=== PATIENT | male | born 1955 | race Caucasian/White ===

== ENCOUNTER 2019-06-02 22:49 | Inpatient (IN) | payer OTHER, SELFPAY ==
[2019-06-02 23:31] LABS: Absolute Lymphocytes (CBC) 1.1 K/uL (0.7-4.9); Basophils % 0.5 % (0-1.3); Hematocrit 38.5 % (39.6-49.0); Lymphocytes % 6.8 % (15.3-44.8); MPV 8.8 fL (7.6-11.3); RBC Red Blood Cell Count 4.22 M/uL (4.33-5.43)
[2019-06-02 23:35] LABS: Protime INR 1.05
[2019-06-02 23:52] LABS: ALT/SGPT 51 U/L (12-78); AST/SGOT 45 U/L (15-37); Albumin 3.4 g/dL (3.4-5.0); Alkaline Phosphatase 84 U/L (45-117); BUN Blood Urea Nitrogen 10 mg/dL (7-18); Bicarbonate 24 mmol/L (21-32); Bilirubin Direct 1.3 mg/dL (0-0.2); Bilirubin Total 2.2 mg/dL (0.2-1.0); Glucose Level 78 mg/dL (74-106); Magnesium 1.6 mg/dL (1.8-2.4); NT PRO-BNP 257 pg/mL (<125); Potassium 4.5 mmol/L (3.5-5.1); Protein, Total 7.6 g/dL (6.4-8.2); Sodium Level 127 mmol/L (136-145); Troponin (Emerg Dept Use Only) < 0.02 ng/mL (0.0-0.045)
[2019-06-03 00:23] LABS: Blood Morphology Comment NOTED (NOT SEEN); Platelet Estimate INCR; Polychromasia 1+; Urine White Blood Cell Casts OK
--- NOTE | 2019-06-03 00:45 | ER ---
Nurse's Notes [facility] Name: Matt Bertrand Age: 63 yrs Sex: Male : 1955 Arrival Date: 06/02/2019 Time: 22:52 Bed 26 Private MD: Diagnosis: Other chest pain;Alcohol dependence with withdrawal;Cellulitis of right lower limb;Cellulitis of left lower limb Presentation: 06/02 22:52 Presenting complaint: EMS states: CHEST PAIN TWO HOURS AGO. WITH HISTORY OF MULTIPLE rv MIs. NO PROCEDURE DONE. CONSISTENT SHARP PAINS, DOES NOT RADIATE. PATIENT IS ALCOHOLIC AND IS ON DETOX FOR TWO DAYS NOW. HE STAYS AT [facility]. Transition of care: [facility]. Onset of symptoms was June 02, 2019 at 21:00. Risk Assessment: Do you want to hurt yourself or someone else? Patient reports no desire to harm self or others. Care prior to arrival: None. Medication(s) given: ASA, 81 mg, x 4. 22:52 Method Of Arrival: EMS: [facility] rv 22:52 Acuity: ALIDA 3 rv 06/03 00:06 Initial Sepsis Screen: Does the patient meet any 2 criteria? No. Patient's initial ls4 sepsis screen is negative. Does the patient have a suspected source of infection? Yes: Skin breakdown/wound. Triage Assessment: 06/02 22:54 General: Appears ill, obese, Behavior is calm. Pain: Complains of pain in chest Pain rv does not radiate. Neuro: Level of Consciousness is awake, alert, obeys commands, Oriented to person, place, time, situation. Cardiovascular: Patient's skin is warm and dry. Respiratory: Airway is patent. Historical: - Allergies: 22:54 No Known Allergies; rv - Home Meds: 22:54 None [Active]; rv - PMHx: 22:54 Unable to obtain; rv - PSHx: 22:54 None; rv - Immunization history:: Adult Immunizations unknown. - Coronavirus screen:: The patient has NOT traveled to [place], [place], or [place] in the past 14 days. Proceed with normal triage process as indicated. The patient has NOT had contact with known/suspected case of Coronavirus? Proceed with normal triage procedures. - Social history:: Smoking status: Patient reports the use of cigarette tobacco products, smokes one pack cigarettes per day. - Ebola Screening: : No symptoms or risks identified at this time. Screenin:53 Abuse screen: Denies threats or abuse. Denies injuries from another. Nutritional ls4 screening: No deficits noted. Tuberculosis screening: No symptoms or risk factors identified. Fall Risk Fall in past 12 months (25 points). Secondary diagnosis (15 points) IV access (20 points). Ambulatory Aid- None/Bed Rest/Nurse Assist (0 pts). Gait- Impaired (20 pts.). Mental Status- Oriented to own ability (0 pts). Total Brown Fall Scale indicates Low Risk Score (25-44 pts). Fall prevention measures have been instituted. Side Rails Up X 2 Placed close to Nursing Station Frequent Obs/Assesments occuring Family Present and informed to notify staff if they need to leave bedside As available Patient and Family Educated on Fall Prevention Program and strategies. 06/03 00:07 VAN Screening: Arm Drift: Patient shows no arm weakness. ls4 Assessment: 00:07 General: Appears distressed, uncomfortable, ill, unkempt, Behavior is flat, fussy, ls4 Smells of URINE. Pain: Denies pain. Neuro: Level of Consciousness is lethargic, Oriented to person, situation, Shampooer are equal bilaterally Moves all extremities. Gait is ataxic, Speech is normal, Facial symmetry appears normal, Pupils are PERRLA, Reports. Cardiovascular: Denies chest pain, Capillary refill < 3 seconds Clubbing of nail beds is present JVD is absent Patient's skin is warm and dry. Rhythm is regular. Respiratory: Airway is patent Respiratory effort is even, unlabored, Respiratory pattern is regular, Breath sounds are diminished. GI: No deficits noted. : Reports incontinence. Derm: FEET MACURATED. APPEARS SOCKS AND SHOES HAVE BEEN ON FOR A LONG PERIOD, SHOES WERE WET, PT HAD 4 PAIRS OF SOCKS ON. PT FACE IS RED AND KAIDEN. Musculoskeletal: Circulation, motion, and sensation intact. Capillary refill < 3 seconds, Range of motion: intact in all extremities. 01:11 Reassessment: No changes from previously documented assessment. Patient and/or family ls4 updated on plan of care and expected duration. Pain level reassessed. Patient is alert, oriented x 3, equal unlabored respirations, skin warm/dry/pink. 01:56 Reassessment: Patient appears in no apparent distress at this time. upon helping clean ch pt, pt buttocks are macerated, yellow, cracking duarte buttocks. Vital Signs: 06/02 22:52 Weight 95.25 kg; rv 23:01 BP 153 / 65; Pulse 110; Resp 21; Temp 98.2; Pulse Ox 97% on R/A; ls4 06/03 00:14 BP 153 / 87; Pulse 110; Resp 20; Temp 100.0; Pulse Ox 94% on R/A; Pain 0/10; ls4 01:10 BP 154 / 91; Pulse 106; Resp 14; Temp 98.9; Pulse Ox 94% on R/A; ls4 NIH Stroke Scale Scores: 00:07 NIHSS Score: 0 ls4 ED Course: 06/02 22:00 Initial lab(s) drawn, by ED staff, sent to lab. EKG done, by ED staff, reviewed by shaista Sanchez MD. 22:00 Patient maintains SpO2 saturation greater than 95% on room air. ls4 22:52 Patient arrived in ED. rv 22:54 Triage completed. rv 22:55 Arm band placed on Patient placed in the treatment room, on a stretcher, Patient rv notified of wait time. 22:55 Patient has correct armband on for positive identification. Placed in gown. Bed in low ls4 position. Call light in reach. Side rails up X2. CLOTHING REMOVED. PT GIVEN COMPLETE BATH. PT INCONTINENT OF URINE. 22:55 child monitor on. Pulse ox on. NIBP on. Warm blanket given. Verbal reassurance given. ls4 Diet: Patient is NPO. 23:01 Ladan Lloyd, RN is Primary Nurse. ls4 23:20 Heath Sanchez MD is Attending Physician. tw4 23:50 XRAY Chest (1 view) In Process Unspecified. EDMS 23:54 No provider procedures requiring assistance completed. Inserted saline lock: 20 gauge ls4 in left forearm, using aseptic technique. 06/03 00:06 EKG completed in triage. Results shown to . ls4 00:43 Carolyn Manriquez MD is Hospitalizing Provider. tw4 Administered Medications: 00:01 Drug: NS 0.9% 1000 ml Route: IV; Rate: 1 bolus; Site: left forearm; ls4 01:43 Drug: Thiamine 100 mg Route: IV; Rate: calculated rate; Site: left forearm; ls4 01:43 Drug: foLIC Acid 1 mg Route: IVPB; Site: left forearm; ls4 01:43 Drug: Cleocin 600 mg Route: IVPB; Infused Over: 30 mins; Site: left forearm; ls4 01:44 Not Given (Other Intervention Used): Ativan 1 mg PO once ls4 01:44 Drug: Ativan 1 mg Route: IVP; Site: left forearm; ls4 Outcome: 00:45 Decision to Hospitalize by Provider. tw4 03:21 Patient left the ED. NIH Stroke Scale - NIH Stroke Score Date: 06/03/2019 Time: 00:07 Total Score = 0 1a. Level of Consciousness (LOC) - 0(Alert) 1b. Level of Consciousness (LOC) (Year \T\ Age) - 0(Both) 1c. LOC Commands (Open \T\ Closes Eyes/Roving Machine Operator) - 0(Both) 2. Best Gaze (Lateral Gaze Paresis) - 0(Normal) 3. Visual Field Loss - 0(No visual loss) 4. Facial Palsy - 0(Normal) 5a. Left Arm: Motor (10-second hold) - 0(No drift) 5b. Right Arm: Motor (10-second hold) - 0(No drift) 6a. Left Leg: Motor (5-second hold - always test supine) - 0(No drift) 6b. Right Leg: Motor (5-second hold - always test supine) - 0(No drift) 7. Limb Ataxia (finger/nose \T\ heel/palacios - test with eyes open) - 0(Absent) 8. Sensory Loss (pinprick arms/legs/face) - 0(Normal) 9. Best Language: Aphasia (description/naming/reading) - 0(No aphasia) 10. Dysarthria (speech clarity - read or repeat words) - 0(Normal) 11. Extinction and Inattention (visual/tactile/auditory/spatial/personal) - 0(No abnormality) Initials: ls4 Signatures: Dispatcher [employer] EDCheri Juarez RN RN Claudia Mario RN RN fc Wadley, Terrence, MD MD tw4 Hector Abbott RN RN Ladan Lloyd RN RN ls4 Corrections: (The following items were deleted from the chart) 06/02 22:56 22:52 Presenting complaint: EMS states: CHEST PAIN TWO HOURS AGO. WITH HISTORY rv OF MULTIPLE MIs. NO PROCEDURE DONE. CONSISTENT SHARP PAINS, DOES NOT RADIATE. rv 06/03 01:43 01:42 Ativan 1 mg PO ls4 ls4
--- NOTE | 2019-06-03 00:45 | EDPHYS ---
Physician Documentation [facility] Name: Matt Bertrand Age: 63 yrs Sex: Male : 1955 Arrival Date: 06/02/2019 Time: 22:52 Bed 26 Private MD: ED Physician Heath Sanchez HPI: 06/03 01:07 This 63 yrs old Male presents to ER via EMS with complaints of chest pain and feeling tw4 shaky. 01:07 The patient or guardian reports chest pain that is located primarily in the anterior tw4 chest wall. Onset: today. The pain does not radiate. Associated signs and symptoms: The patient has no apparent associated signs or symptoms. The chest pain is described as dull. Duration: The patient or guardian reports a single episode, that is now resolved. Modifying factors: The symptoms are alleviated by nothing. Severity of pain: At its worst the pain was moderate in the emergency department the pain is unchanged. Historical: - Allergies: 06/02 22:54 No Known Allergies; rv - Home Meds: 22:54 None [Active]; rv - PMHx: 22:54 Unable to obtain; rv - PSHx: 22:54 None; rv - Immunization history:: Adult Immunizations unknown. - Coronavirus screen:: The patient has NOT traveled to [place], [place], or [place] in the past 14 days. Proceed with normal triage process as indicated. The patient has NOT had contact with known/suspected case of Coronavirus? Proceed with normal triage procedures. - Social history:: Smoking status: Patient reports the use of cigarette tobacco products, smokes one pack cigarettes per day. - Ebola Screening: : No symptoms or risks identified at this time. ROS: 06/03 01:07 Constitutional: Negative for fever, chills, and weight loss, Eyes: Negative for injury, tw4 pain, redness, and discharge, Respiratory: Negative for shortness of breath, cough, wheezing, and pleuritic chest pain, Abdomen/GI: Negative for abdominal pain, nausea, vomiting, diarrhea, and constipation, Back: Negative for injury and pain, Skin: Negative for injury, rash, and discoloration, Neuro: Negative for headache, weakness, numbness, tingling, and seizure. Cardiovascular: Positive for chest pain, Negative for edema, orthopnea, palpitations, paroxysmal nocturnal dyspnea. Skin: Positive for cellulitis. Exam: 01:07 Constitutional: This is a well developed, well nourished patient who is awake, alert, tw4 and in no acute distress. Head/Face: Normocephalic, atraumatic. Chest/axilla: Normal chest wall appearance and motion. Nontender with no deformity. No lesions are appreciated. Cardiovascular: Regular rate and rhythm with a normal S1 and S2. No gallops, murmurs, or rubs. Normal PMI, no JVD. No pulse deficits. Respiratory: Lungs have equal breath sounds bilaterally, clear to auscultation and percussion. No rales, rhonchi or wheezes noted. No increased work of breathing, no retractions or nasal flaring. Abdomen/GI: Soft, non-tender, with normal bowel sounds. No distension or tympany. No guarding or rebound. No evidence of tenderness throughout. 01:07 Musculoskeletal/extremity: Extremities: noted in the right foot: erythema, swelling, decreased ROM, deformity, laceration, puncture, rash. Vital Signs: 06/02 22:52 Weight 95.25 kg; rv 23:01 BP 153 / 65; Pulse 110; Resp 21; Temp 98.2; Pulse Ox 97% on R/A; ls4 06/03 00:14 BP 153 / 87; Pulse 110; Resp 20; Temp 100.0; Pulse Ox 94% on R/A; Pain 0/10; ls4 01:10 BP 154 / 91; Pulse 106; Resp 14; Temp 98.9; Pulse Ox 94% on R/A; ls4 NIH Stroke Scale Scores: 00:07 NIHSS Score: 0 ls4 MDM: 06/02 23:27 Patient medically screened. tw4 06/03 01:07 Differential diagnosis: acute pericarditis, anxiety, coronary artery disease chest wall tw4 pain, pulmonary embolus. HEART Score: History: Slightly Suspicious (0), ECG: Non specific repolarization disturbance / LBTB / PM (1), Age: > or = 65 years (2), Risk Factors: 1 or 2 risk factors (1), [Hypertension] [Active Smoker] Troponin: < or = 1 x Normal Limit (0), Total Score = 4. Data reviewed: vital signs, nurses notes. Data interpreted: Pulse oximetry: Interpretation: normal. Test interpretation: by ED physician or midlevel provider: ECG, plain radiologic studies. Counseling: I had a detailed discussion with the patient and/or guardian regarding: the historical points, exam findings, and any diagnostic results supporting the discharge/admit diagnosis. Physician consultation: Carolyn Manriquez MD regarding admission, to the telemetry unit. patient's condition, and will see patient in inpatient room. Special discussion:. 06/02 23:20 Order name: Basic Metabolic Panel [facility] 06/03 00:47 Interpretation: Normal except: NA 127; CL 91. [facility] 06/02 23:20 Order name: CBC with Diff [facility] 06/03 00:47 Interpretation: Normal except: WBC 15.7; RBC 4.22; HGB 12.7; HCT 38.5; PLT 435; LYM% tw4 6.8; WILLA% 80.6; NEUT A 12.6. 06/02 23:20 Order name: LFT's [facility] 06/03 00:47 Interpretation: Normal except: AST 45; BILIT 2.2; BILID 1.3; GLOB 4.2; A/G 0.8. [facility] 06/02 23:20 Order name: Magnesium [facility] 06/03 00:47 Interpretation: Abnormal: MG 1.6. [facility] 06/02 23:20 Order name: NT PRO-BNP [facility] 06/03 00:47 Interpretation: Abnormal: NT PRO-BNP 257. [facility] 06/02 23:20 Order name: PT-INR [facility] 06/03 00:48 Interpretation: Within normal limits: PT 12.4. [facility] 06/02 23:20 Order name: Troponin (emerg Dept Use Only) [facility] 06/03 00:48 Interpretation: Within normal limits: TROPED < 0.02. [facility] 06/02 23:20 Order name: XRAY Chest (1 view) [facility] 06/02 23:44 Order name: CBC Smear Scan [facility] 06/03 01:50 Order name: Lipid Profile [facility] 06/03 01:50 Order name: Lipid Profile [facility] 06/03 01:50 Order name: Troponin I [facility] 06/03 01:50 Order name: Troponin I [facility] 06/03 01:50 Order name: Troponin I [facility] 06/02 23:20 Order name: EKG; Complete Time: 23:21 [facility] 06/02 23:20 Order name: Cardiac monitoring; Complete Time: 23:52 tw4 06/02 23:20 Order name: EKG - Nurse/Tech; Complete Time: 23:52 tw4 06/02 23:20 Order name: IV Saline Lock; Complete Time: 23:52 tw4 06/02 23:20 Order name: Labs collected and sent; Complete Time: 23:51 tw4 06/02 23:20 Order name: O2 Per Protocol; Complete Time: 23:51 tw4 06/03 01:50 Order name: Heart Healthy [facility] 06/03 01:50 Order name: Echo with Doppler [facility] 06/03 01:50 Order name: EKG Electrocardiogram [facility] 06/03 01:50 Order name: EKG Electrocardiogram [facility] 06/02 23:20 Order name: O2 Sat Monitoring; Complete Time: :51 tw4 EC:52 Rate is 109 beats/min. Rhythm is regular. QRS [place] is Normal. ME interval is normal. tw4 QRS interval is normal. QT interval is normal. No Q waves. T waves are Normal. No ST changes noted. Clinical impression: NSR w/ Non-specific ST/T Changes, Abnormal EKG without significant change, and Sinus tachycardia. Interpreted by me. Reviewed by me. Administered Medications: 00:01 Drug: NS 0.9% 1000 ml Route: IV; Rate: 1 bolus; Site: left forearm; ls4 01:43 Drug: Thiamine 100 mg Route: IV; Rate: calculated rate; Site: left forearm; ls4 01:43 Drug: foLIC Acid 1 mg Route: IVPB; Site: left forearm; ls4 01:43 Drug: Cleocin 600 mg Route: IVPB; Infused Over: 30 mins; Site: left forearm; ls4 01:44 Not Given (Other Intervention Used): Ativan 1 mg PO once ls4 01:44 Drug: Ativan 1 mg Route: IVP; Site: left forearm; ls4 Disposition: 06/03/19 00:45 Hospitalization ordered by Carolyn Manriquez for Inpatient Admission. Preliminary diagnosis are Other chest pain, Alcohol dependence with withdrawal, Cellulitis of right lower limb, Cellulitis of left lower limb. - Bed requested for Telemetry/MedSurg (Inpatient). - Status is Inpatient Admission. fc - Condition is Stable. - Problem is an ongoing problem. - Symptoms are unchanged. UTI on Admission? No NIH Stroke Scale - NIH Stroke Score Date: 06/03/2019 Time: 00:07 Total Score = 0 1a. Level of Consciousness (LOC) - 0(Alert) 1b. Level of Consciousness (LOC) (Year \T\ Age) - 0(Both) 1c. LOC Commands (Open \T\ Closes Eyes/Resident Care Aide) - 0(Both) 2. Best Gaze (Lateral Gaze Paresis) - 0(Normal) 3. Visual Field Loss - 0(No visual loss) 4. Facial Palsy - 0(Normal) 5a. Left Arm: Motor (10-second hold) - 0(No drift) 5b. Right Arm: Motor (10-second hold) - 0(No drift) 6a. Left Leg: Motor (5-second hold - always test supine) - 0(No drift) 6b. Right Leg: Motor (5-second hold - always test supine) - 0(No drift) 7. Limb Ataxia (finger/nose \T\ heel/palacios - test with eyes open) - 0(Absent) 8. Sensory Loss (pinprick arms/legs/face) - 0(Normal) 9. Best Language: Aphasia (description/naming/reading) - 0(No aphasia) 10. Dysarthria (speech clarity - read or repeat words) - 0(Normal) 11. Extinction and Inattention (visual/tactile/auditory/spatial/personal) - 0(No abnormality) Initials: ls4 Signatures: Dispatcher [employer] EDMS Claudia Mario RN RN fc Garcia, Cindy, RN RN Heath Sanchez MD MD tw4 Hector Abbott RN RN rv Stewart, Lisa, RN RN ls4 Corrections: (The following items were deleted from the chart) 00:45 00:45 Hospitalization Ordered by Carolyn Manriquez MD for Inpatient Admission. tw4 Preliminary diagnosis is Other chest pain; Alcohol dependence with withdrawal. Bed requested for Telemetry/MedSurg (Inpatient). Status is Inpatient Admission. Condition is Stable. Problem is an ongoing problem. Symptoms are unchanged. UTI on Admission? No. tw4 01:57 00:45 06/03/2019 00:45 Hospitalization Ordered by Carolyn Manriquez MD for cg Inpatient Admission. Preliminary diagnosis is Other chest pain; Alcohol dependence with withdrawal; Cellulitis of right lower limb; Cellulitis of left lower limb. Bed requested for Telemetry/MedSurg (Inpatient). Status is Inpatient Admission. Condition is Stable. Problem is an ongoing problem. Symptoms are unchanged. UTI on Admission? No. tw4 03:21 01:57 06/03/2019 00:45 Hospitalization Ordered by Carolyn Manriquez MD for Inpatient Admission. Preliminary diagnosis is Other chest pain; Alcohol dependence with withdrawal; Cellulitis of right lower limb; Cellulitis of left lower limb. Bed requested for Telemetry/MedSurg (Inpatient). Status is Inpatient Admission. Condition is Stable. Problem is an ongoing problem. Symptoms are unchanged. UTI on Admission? No. cg
[2019-06-03] MEDS ORDERED: THIAMINE 200 MG/2 ML INJ ONE (01:17)
[2019-06-03] MEDS ORDERED: FOLIC ACID 5 MG/ML VIAL ONE ×2 (01:20→01:24)
[2019-06-03] MEDS ORDERED: LORazepam 2 MG/ML VIAL ONE (01:24)
[2019-06-03] MEDS ORDERED: CLINDAMYCIN 600MG/D5W 600 MG/50 ML BAG IV ONE (01:25)
[2019-06-03] MEDS ORDERED: ACETAMINOPHEN 500 MG TAB PO PRN (01:45)
[2019-06-03] MEDS: MORPHINE 4 MG/ML SYR IV PRN ×3 (04:11→21:19)
[2019-06-03 04:37] VITALS: BMI 33.1
[2019-06-03] MEDS: chlordiazePOXIDE HCl 5 MG CAP PO SCH ×4 (05:43→23:41)
[2019-06-03] MEDS ORDERED: NA CHLORIDE 0.9% 100 ML ONE (05:46)
[2019-06-03] MEDS ORDERED: PIPERACIL/TAZO 3.375 GM VIAL IV ONE (05:48)
[2019-06-03] MEDS ORDERED: METOPROLOL TAR 50 MG TAB PO SCH (06:00)
[2019-06-03] MEDS ORDERED: PIPER/TAZO/NS 3.375gm 3.375 GM/100 ML BAG IVPB SCH ×2 (06:00→11:00)
[2019-06-03 06:07] LABS: HDL Cholesterol 54 mg/dL (40-60); LDL Cholesterol, Calculated 63 (<130); Troponin I < 0.02 ng/mL (0.0-0.045)
[2019-06-03] MEDS ORDERED: HYDROCORTISONE SUC 100 MG INJ IV ONE (06:35)
[2019-06-03] MEDS ORDERED: NA CHLORIDE 0.9% 500 ML IV ONE (06:35)
--- NOTE | 2019-06-03 06:35 | EKG ---
Test Date: 2019-06-02 Test Time: 22:54:23 Print Shop Assistant: LEYDI MEASUREMENT RESULTS: Intervals: Rate: 109 WI: 164 QRSD: 80 QT: 336 QTc: 452 [place]: P: 66 WI: 164 QRS: -3 T: 56 INTERPRETIVE STATEMENTS: Sinus tachycardia Possible Left atrial enlargement Anteroseptal infarct, age undetermined Abnormal ECG No previous ECG available for comparison Electronically Signed On 06-03-19 06:34:57 PHYSICS TUTOR by Manuel Blankenship
[2019-06-03] MEDS ORDERED: Magnesium Sulfate 2gm IVPB 2 G/50 ML BAG IV ONE (06:38)
[2019-06-03] MEDS ORDERED: VANCOMYCIN 1.75 GM in NA CHLORIDE 0.9% 500 ML IVPB SCH (07:00)
--- NOTE | 2019-06-03 07:55 | RAD REPORT ---
EXAM DESCRIPTION: Olivier Single View06/02/2019 11:49 pm CLINICAL HISTORY: Chest pain COMPARISON: none FINDINGS: The lungs appear clear of acute infiltrate. The heart is borderline enlarged IMPRESSION: No acute abnormalities displayed
[2019-06-03] MEDS: FOLIC ACID 1 MG, MULTIVITAMINS INJ 10 ML, THIAMINE HCL 100 MG in NA CHLORIDE 0.9% 1,000 ML IV SCH (08:35)
[2019-06-03] MEDS: VANCOMYCIN 1.75 GM in NA CHLORIDE 0.9% 500 ML IVPB SCH ×2 (08:36→20:02)
[2019-06-03] MEDS: ASPIRIN EC 81 MG TAB PO SCH (08:39)
[2019-06-03] MEDS: METOPROLOL TAR 50 MG TAB PO SCH ×2 (08:39→20:56)
[2019-06-03] MEDS: ENOXAPARIN 40 MG/0.4 ML SQ SCH (08:39)
[2019-06-03] MEDS ORDERED: ASPIRIN 325 MG TAB PO SCH (09:00)
[2019-06-03] MEDS ORDERED: INFLUENZA VACCINE (for 3y+) 0.5 ML DOSE IMVAC ONE (09:00)
[2019-06-03] MEDS: CEFEPIME/SWI 1gm 10 ML IV SCH ×2 (12:08→17:10)
--- NOTE | 2019-06-03 12:40 | P.HP ---
Certification for Inpatient Patient admitted to: Inpatient With expected LOS: >2 Midnights Patient will require the following post-hospital care: None Practitioner: I am a practitioner with admitting privileges, knowledge of patient current condition, hospital course, and medical plan of care. Services: Services provided to patient in accordance with Admission requirements found in Title 42 Section 412.3 of the Code of Federal Regulations Patient History Date of Service: 06/03/19 Reason for admission: Bilateral lower extremity cellulitis & alcoholism History of Present Illness: Patient is a 63-year-old gentleman who has a history of alcohol use /abuse who comes into the hospital with bilateral lower extremity cellulitis. Patient has been homeless and has been living at the [facility]. He had been getting around until his feet were hurting. He apparently has not taken his socks off in over a month. He was having pain and tenderness so he came into the emergency room for further evaluation. On further exam he has significant erythema on both legs. He has a history of alcohol abuse though it is concerning for possible skin infection versus gouty arthropathy. Patient will be started on IV antibiotic therapy. Will also check a serum uric acid level and he may need a 24 hour urine at uric acid level. If the antibiotics is not improving the erythema that he may benefit from colchicine and steroids. Allergies No Known Allergies Allergy (Unverified 06/03/19 01:45) Home Medications: NK [No Home Meds] 06/03/19 - Past Medical/Surgical History Has patient received pneumonia vaccine in the past: Yes Diabetic: No -: HTN -: COPD -: Right ankle surgery - Family History Father Family History: Reviewed- Non-Contributory - Social History Smoking Status: Unknown if ever smoked Alcohol use: Yes CD- Drugs: No Caffeine use: Yes Place of Residence: Homeless Review of Systems 10-point ROS is otherwise unremarkable Physical Examination - Vital Signs Temperature: 99.7 F Blood Pressure: 149/76 Pulse: 97 Respirations: 20 Pulse Ox (%): 94 - Physical Exam General: Alert, In no apparent distress, Oriented x3 HEENT: Atraumatic, PERRLA, Mucous membr. moist/pink, EOMI, Sclerae nonicteric Neck: Supple, 2+ carotid pulse no bruit, No LAD, Without JVD or thyroid abnormality Respiratory: Clear to auscultation bilaterally, Normal air movement Cardiovascular: Regular rate/rhythm, Normal S1 S2, No murmurs Gastrointestinal: Normal bowel sounds, Soft and benign, Non-distended, No tenderness Musculoskeletal: No clubbing, Swelling, Erythema, Tenderness, Warmth Integumentary: Tenderness/swelling, Erythema, Warmth Neurological: Normal speech, Normal tone, Sensation intact, Cranial nerves 3-12 intact, Normal affect, Abnormal gait, Abnormal strength Lymphatics: No axilla or inguinal lymphadenopathy - Studies Laboratory Data (last 24 hrs) 06/02/19 23:20: PT 12.4, INR 1.05 06/02/19 23:20: WBC 15.7 H, Hgb 12.7 L, Hct 38.5 L, Plt Count 435 H 06/02/19 23:20: Sodium 127 L, Potassium 4.5, BUN 10, Creatinine 0.67, Glucose 78 , Magnesium 1.6 L, Total Bilirubin 2.2 H, AST 45 H, ALT 51, Alkaline Phosphatase 84 Assessment & Plan - Problems (Diagnosis) (1) Cellulitis of both lower extremities Current Visit: Yes Status: Acute (2) History of alcohol abuse Current Visit: Yes Status: Acute (3) Gouty arthropathy Current Visit: Yes Status: Acute - Plan 1. Continue with IV antibiotic 2. Continue with local wound care 3. patient may need Podiatry or infectious Disease consultation 4. Gentle IV hydration and we will add banana bag daily 5. Monitor CBC 6. delirium tremens prevention 7. Pain control 8. GI and DVT prophylaxis Discharge Plan: Home Plan to discharge in: Greater than 2 days - Advance Directives Does patient have a Living Will: No Does patient have a Durable POA for Healthcare: No - Code Status/Comfort Care Code Status Assessed: Yes Code Status: Full Code Critical Care: No Time Spent Managing PTS Care (In Minutes): 45
[2019-06-03 13:58] LABS: BUN Blood Urea Nitrogen 10 mg/dL (7-18); Bicarbonate 31 mmol/L (21-32); Glucose Level 90 mg/dL (74-106); Potassium 4.2 mmol/L (3.5-5.1); Sodium Level 137 mmol/L (136-145)
--- NOTE | 2019-06-03 15:30 | ECHO ---
HEIGHT: 5 ft 8 in WEIGHT: 218 lb 3.2 oz DATE OF STUDY: 06/03/[address]: Carolyn Manriquez MD 2-DIMENSIONAL: YES M.MODE: YES DOPPLER: YES COLOR FLOW: YES TDS: YES PORTABLE: NO DEFINITY: NO BUBBLE STUDY: NO DIAGNOSIS: CHEST PAIN/ ACUTE CORONARY SYNDROME CARDIAC HISTORY: CATHERIZATION: NO SURGERY: NO PROSTHETIC VALVE: NO PACEMAKER: NO MEASUREMENTS (cm) DIASTOLIC (NORMALS) SYSTOLIC (NORMALS) IVSd 1.2 (0.6-1.2) LA Diam 3.6 (1.9-4.0) LVEF 52% LVIDd 4.7 (3.5-5.7) LVIDs 3.5 (2.0-3.5) %FS 26% LVPWd 1.3 (0.6-1.2) Ao Diam 3.5 (2.0-3.7) 2 DIMENSIONAL ASSESSMENT: RIGHT ATRIUM: NORMAL LEFT ATRIUM: NORMAL RIGHT VENTRICLE: NORMAL LEFT VENTRICLE: NORMAL TRICUSPID VALVE: NORMAL MITRAL VALVE: NORMAL PULMONIC VALVE: NORMAL AORTIC VALVE: NORMAL PERICARDIAL EFFUSION: NONE AORTIC ROOT: NORMAL LEFT VENTRICULAR WALL MOTION: NORMAL. DOPPLER/COLOR FLOW: TRACE OF TRICUSPID REGURGITATION. NORMAL RIGHT VENTRICULAR SYSTOLIC PRESSURE. COMMENTS: NORMAL 2D ECHO WITH DOPPLER. TRACE OF TRICUSPID REGURGITATION. TECHNOLOGIST: DOUGLAS GONZALEZ
[2019-06-04] MEDS: CEFEPIME/SWI 1gm 10 ML IV SCH ×3 (00:26→16:18)
[2019-06-04] MEDS: MORPHINE 4 MG/ML SYR IV PRN ×2 (00:57→12:39)
[2019-06-04] MEDS: ALPRAZOLAM 0.25 MG TABLET PO PRN ×3 (01:49→10:04)
[2019-06-04] MEDS: chlordiazePOXIDE HCl 5 MG CAP PO SCH ×3 (05:49→16:17)
[2019-06-04 06:02] LABS: Absolute Lymphocytes (CBC) 1.3 K/uL (0.7-4.9); Basophils % 1.3 % (0-1.3); Hematocrit 34.7 % (39.6-49.0); Lymphocytes % 15.1 % (15.3-44.8); MPV 8.5 fL (7.6-11.3)
[2019-06-04 06:19] LABS: BUN Blood Urea Nitrogen 12 mg/dL (7-18); Bicarbonate 29 mmol/L (21-32); Glucose Level 87 mg/dL (74-106); Lipase 222 U/L (73-393); Phosphorus 3.5 mg/dL (2.5-4.9); Potassium 4.1 mmol/L (3.5-5.1); Sodium Level 137 mmol/L (136-145)
[2019-06-04] MEDS: ENOXAPARIN 40 MG/0.4 ML SQ SCH (10:03)
[2019-06-04] MEDS: ASPIRIN EC 81 MG TAB PO SCH (10:03)
[2019-06-04] MEDS: METOPROLOL TAR 50 MG TAB PO SCH ×2 (10:04→21:34)
[2019-06-04] MEDS: VANCOMYCIN 1.75 GM in NA CHLORIDE 0.9% 500 ML IVPB SCH (10:05)
[2019-06-04] MEDS: FOLIC ACID 1 MG, MULTIVITAMINS INJ 10 ML, THIAMINE HCL 100 MG in NA CHLORIDE 0.9% 1,000 ML IV SCH (10:05)
--- NOTE | 2019-06-04 11:16 | EKG ---
Test Date: 2019-06-04 Test Time: 09:44:51 Control Valve Technician: KATE MEASUREMENT RESULTS: Intervals: Rate: 78 KS: 148 QRSD: 102 QT: 414 QTc: 471 [place]: P: 68 KS: 148 QRS: -11 T: 38 INTERPRETIVE STATEMENTS: Sinus rhythm with occasional premature ventricular complexes RSR' or QR pattern in V1 suggests right ventricular conduction delay Cannot rule out Anterior infarct, age undetermined Abnormal ECG Compared to ECG 06/02/2019 22:54:23 Ventricular premature complex(es) now present RSR' in V1 or V2 now present Sinus tachycardia no longer present Myocardial infarct finding still present Electronically Signed On 06-04-19 11:15:53 DOCTOR OF DENTAL SURGERY by Jorge Hughes
[2019-06-04] MEDS ORDERED: LORazepam 2 MG/ML VIAL IV PRN (12:01)
[2019-06-04] MEDS ORDERED: FLUMAZENIL 0.1 MG/ML (5 mL VIAL) IV PRN (12:01)
--- NOTE | 2019-06-04 12:06 | P.PN ---
Subjective Date of Service: 06/04/19 Chief Complaint: Bilateral lower extremity cellulitis & alcoholism In withdrawal. Review of Systems is unable to be obtained Physical Examination - Vital Signs Temperature: 99 F Blood Pressure: 151/72 Pulse: 81 Respirations: 20 Pulse Ox (%): 91 - Physical Exam General: Disheveled, Confused HEENT: Atraumatic, Normocephalic Neck: Supple, JVD not distended Respiratory: Clear to auscultation bilaterally, Expiratory wheezes Cardiovascular: Regular rate/rhythm, Normal S1 S2 Gastrointestinal: Normal bowel sounds, No ascites Musculoskeletal: Erythema, Tenderness, Warmth Integumentary: Erythema, Warmth Neurological: Abnormal gait, Abnormal speech - Studies Laboratory Tests 06/04/19 06/04/19 05:39 05:39 WBC 8.4 D Hgb 11.7 L Hct 34.7 L Plt Count 357 Sodium 137 Potassium 4.1 Creatinine 0.63 Glucose 87 Lipase 222 Medications List Reviewed: Yes Assessment And Plan - Plan #Cellulitis of both lower extremities-Continue with IV antibiotic. Discontinue vancomycin. - Leukocytosis improved. -Check wound culture. Will consider podiatry consultation. - Continue with local wound care #History of alcohol abuse- currently in alcohol withdrawal. -patient intends to discontinue alcohol use. -continue multivitamin, thiamine and folic acid. - calculate CIWA an use medication as protocol. -telemonitoring. -seizure precaution. # Gouty arthropathy-stable, will continue pain control. #Hypertension- probably related to alcohol. -continue metoprolol GI and DVT prophylaxis
[2019-06-04] MEDS: LORazepam 2 MG/ML VIAL IV SCH ×3 (12:59→21:34)
[2019-06-05] MEDS: CEFEPIME/SWI 1gm 10 ML IV SCH ×2 (00:24→08:13)
[2019-06-05] MEDS: LORazepam 2 MG/ML VIAL IV SCH ×3 (00:24→08:13)
[2019-06-05] MEDS: chlordiazePOXIDE HCl 5 MG CAP PO SCH ×2 (00:24→05:08)
[2019-06-05 06:00] LABS: ALT/SGPT 37 U/L (12-78); AST/SGOT 31 U/L (15-37); Albumin 2.9 g/dL (3.4-5.0); Alkaline Phosphatase 86 U/L (45-117); BUN Blood Urea Nitrogen 12 mg/dL (7-18); Bicarbonate 33 mmol/L (21-32); Bilirubin Total 0.8 mg/dL (0.2-1.0); Glucose Level 80 mg/dL (74-106); Magnesium 1.8 mg/dL (1.8-2.4); Potassium 4.4 mmol/L (3.5-5.1); Sodium Level 140 mmol/L (136-145)
[2019-06-05 06:19] LABS: Absolute Lymphocytes (CBC) 1.5 K/uL (0.7-4.9); Basophils % 1.3 % (0-1.3); Hematocrit 39.2 % (39.6-49.0); Lymphocytes % 17.3 % (15.3-44.8); MPV 9.5 fL (7.6-11.3); RBC Red Blood Cell Count 4.26 M/uL (4.33-5.43)
[2019-06-05] MEDS: ENOXAPARIN 40 MG/0.4 ML SQ SCH (08:13)
[2019-06-05] MEDS: ASPIRIN EC 81 MG TAB PO SCH (08:13)
[2019-06-05] MEDS: METOPROLOL TAR 50 MG TAB PO SCH (08:13)
[2019-06-05 08:18] LABS: Blood Morphology Comment NOT SEEN (NOT SEEN); Platelet Estimate ADEQ
[2019-06-05] MEDS ORDERED: FOLIC ACID 1 MG TABLET PO SCH (09:00)
[2019-06-05] MEDS ORDERED: THIAMINE HCL 100 MG TABLET PO SCH (09:00)
[2019-06-05] MEDS ORDERED: MULTIVITAMIN TAB PO SCH (09:00)
[2019-06-05] MEDS ORDERED: chlordiazePOXIDE HCl 5 MG CAP PO SCH (09:00)
[2019-06-05 09:10] VITALS: O2SAT 96
--- NOTE | 2019-06-05 10:11 | P.DS ---
Admission Date: 06/03/19 Discharge Date: 06/05/19 Disposition: ROUTINE DISCHARGE Discharge Condition: GOOD Reason for Admission: Bilateral lower extremity cellulitis & alcoholism Hospital Course: Mr. Bertrand is 63-year-old male with a history of alcohol abuse who presented to the ER with bilateral lower extremity cellulitis. Patient had not taken his socks off for over a month. He had been living in [facility]. Initiate evaluation was significant for cellulitis as he also had leukocytosis. He was initiated on IV antibiotics and erythema have significantly improved. Patient has a history of alcohol abuse and underwent alcohol withdrawal while inpatient. His current CIWA score is less than 6. He will be discharged on Librium tapering. Alcohol cessation has been strongly advised. He was also noted to have hypertension, now started on anti hypertensives. Patient has a limited mobility due to unsteady gait. 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 He has been started on folic acid, vitamin B12 and thiamine. He remained hemodynamically stable for discharge back to the [facility]. Vital Signs/Physical Exam: Temp Pulse Resp BP Pulse Ox 98.2 F 74 20 137/74 93 06/05/19 08:00 06/05/19 08:13 06/05/19 08:00 06/05/19 08:13 06/05/19 08:00 General: Alert, In no apparent distress, Disheveled HEENT: Atraumatic, PERRLA, EOMI Neck: Supple, JVD not distended Respiratory: Clear to auscultation bilaterally, Normal air movement Cardiovascular: Regular rate/rhythm, Normal S1 S2 Gastrointestinal: Normal bowel sounds, No tenderness Musculoskeletal: No tenderness Integumentary: Rash(es), Erythema (improved) Neurological: Normal speech, Normal tone, Normal affect Lymphatics: No axilla or inguinal lymphadenopathy Laboratory Data at Discharge: WBC 8.6 K/uL (4.3-10.9) 06/05/19 05:22 Hgb 12.9 g/dL (13.6-17.9) L 06/05/19 05:22 Hct 39.2 % (39.6-49.0) L 06/05/19 05:22 Plt Count 343 K/uL (152-406) 06/05/19 05:22 PT 12.4 SECONDS (9.5-12.5) 06/02/19 23:20 INR 1.05 06/02/19 23:20 Sodium 140 mmol/L (136-145) 06/05/19 05:22 Potassium 4.4 mmol/L (3.5-5.1) 06/05/19 05:22 BUN 12 mg/dL (7-18) 06/05/19 05:22 Creatinine 0.69 mg/dL (0.55-1.3) 06/05/19 05:22 Glucose 80 mg/dL (74-106) 06/05/19 05:22 Uric Acid 5.5 mg/dL (3.5-7.2) 06/03/19 05:21 Phosphorus 3.5 mg/dL (2.5-4.9) 06/04/19 05:39 Magnesium 1.8 mg/dL (1.8-2.4) 06/05/19 05:22 Total Bilirubin 0.8 mg/dL (0.2-1.0) 06/05/19 05:22 AST 31 U/L (15-37) 06/05/19 05:22 ALT 37 U/L (12-78) 06/05/19 05:22 Alkaline Phosphatase 86 U/L (45-117) 06/05/19 05:22 Troponin I < 0.02 ng/mL (0.0-0.045) 06/03/19 11:26 Triglycerides 95 mg/dL (<150) 06/03/19 05:24 Cholesterol 136 mg/dL (<200) 06/03/19 05:24 HDL Cholesterol 54 mg/dL (40-60) 06/03/19 05:24 Cholesterol/HDL Ratio 2.52 06/03/19 05:24 Lipase 222 U/L (73-393) 06/04/19 05:39 Home Medications: Cephalexin [Keflex] 500 mg PO Q12HR #14 cap 06/05/19 Chlordiazepoxide HCl [Librium] 10 mg PO BID #14 capsule 06/05/19 Folic Acid 1 mg PO BID #60 tablet 06/05/19 Metoprolol Tartrate [Lopressor*] 50 mg PO BID #60 tab 06/05/19 Thiamine HCl 100 mg PO DAILY #30 tablet 06/05/19 New Medications: Cephalexin [Keflex] 500 mg PO Q12HR #14 cap Chlordiazepoxide HCl [Librium] 10 mg PO BID #14 capsule Folic Acid 1 mg PO BID #60 tablet Metoprolol Tartrate [Lopressor*] 50 mg PO BID #60 tab Thiamine HCl 100 mg PO DAILY #30 tablet Patient Discharge Instructions: Alcohol cessation strongly advised Diet: AHA Activity: Fall precautions Followup: NONE,NONE [Primary Care Provider] - 1 Week
[2019-06-05 12:14] VITALS: BP 145/82; TEMP 97.9
[2019-06-06] MEDS ORDERED: LORazepam 2 MG/ML VIAL IV SCH (12:02)
== END 2019-06-05 14:10 | disposition home or self-care (01) | DRG 603 ==
LOC: ER 22:49 → 2ND 06-03 01:59
PROVIDERS: ADMIT Hospitalist; ATTEND Hospitalist
DX: L03.116 Cellulitis of left lower limb (principal); F10.239 Alcohol dependence with withdrawal, unspecified; L03.115 Cellulitis of right lower limb; M10.9 Gout, unspecified; D72.829 Elevated white blood cell count, unspecified; I10 Essential (primary) hypertension; J44.9 Chronic obstructive pulmonary disease, unspecified; Z59.0 Homelessness
CPT/HCPCS: 36415; 71045; 80048; 80053; 80061; 80076; 80202; 83605; 83690; 83735; 83880; 84100; 84145; 84484; 84550; 85025; 85610; 93005; 93306; 96374; 96375; 99285; J0692; J1650; J1720; J2543; J3411; J3475; J7030; J7040

== ENCOUNTER 2019-06-06 14:57 | Emergency (ER) | payer OTHER ==
[2019-06-06] MEDS ORDERED: FOLIC ACID 1 MG, MULTIVITAMINS INJ 10 ML, THIAMINE HCL 100 MG in NA CHLORIDE 0.9% 1,000 ML IV ONE (16:00)
[2019-06-06 16:01] LABS: Absolute Lymphocytes (CBC) 1.6 K/uL (0.7-4.9); Basophils % 0.1 % (0-1.3); Hematocrit 45.5 % (39.6-49.0); MPV 8.7 fL (7.6-11.3); RBC Red Blood Cell Count 4.97 M/uL (4.33-5.43)
[2019-06-06 16:21] LABS: Urine Blood NEGATIVE (NEG); Urine Glucose NEGATIVE (NEG); Urine Protein NEGATIVE (NEG); Urine pH 6.5 (5.0-7.0)
[2019-06-06 16:24] LABS: Blood Morphology Comment NOT SEEN (NOT SEEN); Platelet Estimate INCR; Urine White Blood Cell Casts OK
[2019-06-06 16:25] LABS: Barbiturates NEGATIVE (NEGATIVE); Benzodiazepines POSITIVE (NEGATIVE); Cocaine NEGATIVE (NEGATIVE); METHAMPHETAM NEGATIVE (NEGATIVE); Methadone NEGATIVE (NEGATIVE); Opiates NEGATIVE (NEGATIVE); Phencyclidine NEGATIVE (NEGATIVE); THC Cannibis NEGATIVE (NEGATIVE)
[2019-06-06 16:58] LABS: Protime INR 1.02
[2019-06-06 17:08] LABS: ALT/SGPT 32 U/L (12-78); AST/SGOT 20 U/L (15-37); Alkaline Phosphatase 75 U/L (45-117); Bicarbonate 28 mmol/L (21-32); Bilirubin Direct 0.4 mg/dL (0-0.2); Bilirubin Total 0.7 mg/dL (0.2-1.0); Glucose Level 83 mg/dL (74-106); Protein, Total 7.9 g/dL (6.4-8.2); Sodium Level 136 mmol/L (136-145)
[2019-06-06 17:10] LABS: Albumin 3.2 g/dL (3.4-5.0); BUN Blood Urea Nitrogen 7 mg/dL (7-18); Potassium 4.1 mmol/L (3.5-5.1)
[2019-06-06] MEDS ORDERED: ACETAMINOPHEN 500 MG TAB ONE (21:30)
--- NOTE | 2019-06-06 23:31 | ER ---
Nurse's Notes [facility] Name: Matt Bertrand Age: 63 yrs Sex: Male : 1955 Arrival Date: 06/06/2019 Time: 15:00 Bed 6 Private MD: Diagnosis: Homelessness;Alcohol abuse Presentation: 06/06 15:21 Presenting complaint: Abdominal pain and nausea x 2 days. Pt stated "My belly hurts and hb I have nowhere to stay and look at me, I am suicidal!" Pt reports drinking approx 1 case of beer per day, last drink was yesterday. Hx of suicide attempt by overdose, current plan is "to drink myself to and take whatever pills I can find.". Transition of care: patient was not received from another setting of care. Onset of symptoms was June 06, 2019. Risk Assessment: Do you want to hurt yourself or someone else? Patient reports no desire to harm self or others. Initial Sepsis Screen: Does the patient meet any 2 criteria? No. Patient's initial sepsis screen is negative. Does the patient have a suspected source of infection? No. Patient's initial sepsis screen is negative. Care prior to arrival: None. 15:21 Method Of Arrival: Ambulatory hb 15:21 Acuity: ALIDA 2 hb Historical: - Allergies: 15:24 No Known Allergies; hb - Home Meds: 15:24 None [Active]; hb - PMHx: 15:24 hydrocephalus; hb - PSHx: 15:24 None; hb - Immunization history:: Adult Immunizations unknown. - Coronavirus screen:: The patient has NOT traveled to [place], [place], or [place] in the past 14 days. The patient has NOT had contact with known/suspected case of Coronavirus? Proceed with normal triage procedures. - Social history:: Smoking status: Patient reports the use of cigarette tobacco products, smokes one pack cigarettes per day. - Ebola Screening: : No symptoms or risks identified at this time. Screenin:23 Abuse screen: Denies threats or abuse. Nutritional screening: No deficits noted. tw2 Tuberculosis screening: No symptoms or risk factors identified. Fall Risk Secondary diagnosis (15 points) impaired mobility. Assessment: 15:15 Reassessment: pt is yelling loudly "hey, hey, i need a blanket", pt instructed to not tw2 yell that this was an emergency room and we have several patients that need our attention and that we would be with him as soon as we can, Corey Helton is the sitter sitting with pt, security called because pt seemed angry and was yelling loudly disturbing other pts. 16:04 General: Appears in no apparent distress. obese, unkempt, well nourished, Behavior is sg cooperative, appropriate for age. Pain: Complains of pain in abdomen Quality of pain is described as aching. Neuro: Level of Consciousness is awake, obeys commands, Oriented to person, situation, Moves all extremities. Speech is slurred, Facial symmetry appears normal. Cardiovascular: Capillary refill is sluggish in bilateral fingers Patient's skin is warm and dry. Edema is 2+ to left ankle, left foot, right ankle and right foot pitting to left midcalf, left ankle, right midcalf and right ankle Chest pain is denied. Respiratory: Airway is patent Respiratory effort is even, unlabored, Respiratory pattern is regular, symmetrical. GI: Abdomen is round non-distended, obese, Reports normal bowel habits, tolerance of fluids, tolerance of food. : Genitalia appear normal Reports incontinence, urinary frequency. EENT: No signs and/or symptoms were reported regarding the EENT system. Derm: Skin is pink, warm \\T\\ dry. Musculoskeletal: Circulation, motion, and sensation intact. Range of motion: limited in left knee and right knee Reports is wheelchair bound. 16:04 Reassessment: pt refusing to give his wallet that is leather material and brown colored sg to the staff at this time, requesting to keep the wallet with his person in the bed, the wallet is noted to be kept under his left thigh under the ye. 17:00 Reassessment: Patient appears in no apparent distress at this time. Patient and/or tw2 family updated on plan of care and expected duration. Pain level reassessed. pt appears to be sleeping at this time. 17:00 Reassessment: pt urine soiled wheelchair, guitar case, and soiled clothing has been sg taken to the decon room for strorage as pt is a psych pt witnessed by Kiesha MART, pt to keep wallet in bed with his person at this time. 17:00 Reassessment: Witnessed Nakul Mao, RN place urine soiled wheelchair, johnr case, aa5 backpack, and urine soiled clothing in the Decon room for safe keeping during pt's stay in the ER due to pt reporting suicidal ideations. Abbe (head of security) notified pt's belongings will be kept in decon room instead of with security due to belongings being soiled with urine. . 17:51 Reassessment: Patient appears in no apparent distress at this time. Patient and/or tw2 family updated on plan of care and expected duration. Pain level reassessed. pt appears to be sleeping at this time, nad. 18:25 Reassessment: pt urinated himself and his bedding at this time, pt moved to chair, tw2 linens changed and clean gown given. 19:10 Reassessment: Pt's belongings are stored in the decontamination room per day shift. jb4 19:11 Reassessment: Patient lying in bed, eyes close, seems asleep, not in respiratory fu distress. Banana bag infusing at 250ml/hr per IV access at right wrist. . 19:55 Reassessment: Patient awake looking for his wallet, patient's wallet in decon room as fu per CN. Patient voided 300ml in urinal. flushed face noted, skin lesions to bilateral buttocks and skin peeling to bilateral feet noted. . 21:30 Reassessment: complaining of headache and cramps to BLE, INFORMATION ENGINEER notified. Tylenol tab 500mg fu p.o. ordered. 22:31 Reassessment: Patient appears in no apparent distress at this time. Patient resting in fu bed, not in respiratory distress.. 23:20 Reassessment: [facility] practice representative in patient's room, talking to patient.. fu [id number] 01:36 Reassessment: Patient appears in no apparent distress at this time. Patient and/or jb4 family updated on plan of care and expected duration. Pain level reassessed. Patient is alert, oriented x 3, equal unlabored respirations, skin warm/dry/pink. PT waiting for a ride. 03:19 Reassessment: Patient appears in no apparent distress at this time. Patient and/or jb4 family updated on plan of care and expected duration. Pain level reassessed. PT is resting with eyes closed, respirations are even and unlabored, no s/s of pain or distress noted. 06:32 Reassessment: Patient appears in no apparent distress at this time. Patient and/or jb4 family updated on plan of care and expected duration. Pain level reassessed. Patient is alert, oriented x 3, equal unlabored respirations, skin warm/dry/pink. Pt reports missing $400. $6.03 was found in the patients pants pockets and given to the patient, witnessed by Tr[employer]. Pt threw away his soiled socks, blue jeans and shoes as witnessed by security Donita and David. Psych: 06/06 15:15 Subjective: Patient's mood is sad, angry, irritable. Objective: Patient is tw2 uncooperative, belligerent, hostile, Speech is slurred, Affect is flat. Interventions: Removed personal items and placed in bag. Patient placed in hospital gown. Urine collected and sent for urine drug test. Suicide Risk Assessment: Sad Person Scale: Sex of patient: Male: Score 1 point. Age of patient: Score 1 point if patient is over 65. Depression: Score 1 point if signs of depression are present. Previous Attempt: Score 0 point if patient has not previously attempted suicide. Substance Abuse: Score 1 point if patient abuses alcohol or drugs. Rational Thinking: Score 1 point if patient is lacking rational thinking. Social Support: Score 1 point if social support is lacking and/or unavailable. Organized Plan: Score 1 point if patient had a plan in place. Relationship: Score 1 point if patient is , , , or for a single male Chronic Sickness: Score 1 point if patient has illness, chronic, debilitating, or severe. TOTAL POINTS: If total points are 7-10, the proposed clinical action is to hospitalize or commit. Implement suicide precautions. Safety Checks: Personal items have been removed. Door is open. No visitors are present at this time. sitter remains at bedside of pt at this time and throughout shift. Patient uses of beer. Commitment: Patient will be a voluntary commitment. Vital Signs: 15:23 BP 127 / 76; Pulse 77; Resp 16; Temp 97.4; Pulse Ox 100% on R/A; Weight 102.06 kg; hb Height 5 ft. 10 in. (177.80 cm); Pain 8/10; 20:04 BP 127 / 80; Pulse 83; Resp 18; Temp 99.3(T); Pulse Ox 94% on R/A; fu 15:23 Body Mass Index 32.28 (102.06 kg, 177.80 cm) hb ED Course: 15:00 Patient arrived in ED. mr 15:08 Bed in low position. Call light in reach. monitoring specialist on. Pulse ox on. NIBP on. tw2 Warm blanket given. 15:09 Manolo Zarco NP is PHCP. pm1 15:09 Domenic Roper MD is Attending Physician. pm1 15:14 Concha Jang, RN is Primary Nurse. tw2 15:23 Triage completed. hb 15:23 Arm band placed on. hb 15:25 Cleaned of incontinence. changed out of saturated clothing, bathed with personal sg hygiene wipes and placed into a dry clean gown, pt is thankful. 16:00 Initial lab(s) drawn, by me, sent to lab. Urine collected: clean catch specimen, clear, sg Amount Voided: 400mL. Inserted saline lock: 22 gauge in right forearm, using aseptic technique. Blood collected. 19:00 Brandon Du, RN is Primary Nurse. Primary Nurse role handed off by Concha Jang, BARRON fu 20:00 Assisted with urinal. fu 21:30 Cleaned of incontinence. Linen changed. fu 22:57 Patient requests liquids. water given. fu 23:00 No provider procedures requiring assistance completed. fu 23:50 IV discontinued, bleeding controlled, Pressure dressing applied. fu Administered Medications: 16:12 Drug: Banana Bag - (NS 0.9% 1000 ml, foLIC Acid 1 mg, Thiamine 100 mg, Multivitamin 1 sg amp) Route: IV; Rate: calculated rate; Site: right forearm; 21:20 Follow up: Response: No adverse reaction fu 21:29 Drug: Tylenol 500 mg Route: PO; fu 22:30 Follow up: Response: Pain is decreased fu Intake: 20:04 PO: 118ml; Total: 118ml. fu 21:30 PO: 200ml; Total: 318ml. fu Output: 20:04 Urine: 300ml (Voided); Total: 300ml. fu Outcome: 23:31 Discharge ordered by . pm1 23:58 Discharged to Unknown patient is homeless fu 23:58 Condition: stable 23:58 Discharge instructions given to patient, Instructed on discharge instructions, Demonstrated understanding of instructions. 06/07 06:46 Patient left the ED. jb4 Signatures: Nakul Mao, RN RN Sahra OlsenKiesha, RN RN aa5 Manolo Zarco, INFORMATION ENGINEER INFORMATION ENGINEER pm1 Selena Ariza RN RN Concha Jang RN RN tw2 Abbe Saravia RN RN jb4 Brandon Du RN RN Corrections: (The following items were deleted from the chart) 06/06 17:53 17:51 Reassessment: Patient appears in no apparent distress at this time. Patient tw2 and/or family updated on plan of care and expected duration. Pain level reassessed. tw2 20:35 20:31 Primary Nurse role handed off by Concha Jang RN fu fu 20:35 20:31 Brandon Du RN is Primary Nurse. fu fu 21:33 21:29 Reassessment: fu fu 23:10 23:06 Primary Nurse role handed off by Brandon Du RN fu fu
--- NOTE | 2019-06-06 23:32 | EDPHYS ---
Physician Documentation [facility] Name: Matt Bertrand Age: 63 yrs Sex: Male : 1955 Arrival Date: 06/06/2019 Time: 15:00 Bed 6 Private MD: ED Physician Domenic Roper HPI: 06/06 15:30 This 63 yrs old Male presents to ER via Ambulatory with complaints of pm1 Depression, Abdominal Pain, Trouble Walking, Urinary Problem, Suicidal Ideation. 15:30 The patient presents to the emergency department with depression, suicide ideation. pm1 Onset: The symptoms/episode began/occurred today. Past psychiatric history: Prior diagnosis: Alcoholism, Psychiatric medications include: none, the patient does not have a previous inpatient psychiatric history. Associated signs and symptoms: Pertinent positives; abdominal pain, difficulty walking. Severity of symptoms: in the emergency department the symptoms are unchanged. The patient has been recently been admitted at [facility], was discharged earlier today, He was admitted for chest pain, cellulitis, and alcoholism. Patient was discharged today after being admitted for chest pain, lower extremity cellulitis and alcoholism. Patient was discharged home with Keflex and Librium. Patient came to the ER today with complaints of abdominal pain, depression, suicidal ideation, trouble walking, and urinating on himself. He is hungry and wants to eat. He said that his plan is to drink himself to but no one will sell him alcohol. Historical: - Allergies: 15:24 No Known Allergies; hb - Home Meds: 15:24 None [Active]; hb - PMHx: 15:24 hydrocephalus; hb - PSHx: 15:24 None; hb - Immunization history:: Adult Immunizations unknown. - Coronavirus screen:: The patient has NOT traveled to [place], [place], or [place] in the past 14 days. The patient has NOT had contact with known/suspected case of Coronavirus? Proceed with normal triage procedures. - Social history:: Smoking status: Patient reports the use of cigarette tobacco products, smokes one pack cigarettes per day. - Ebola Screening: : No symptoms or risks identified at this time. ROS: 15:30 Constitutional: Negative for fever, chills, and weight loss, Eyes: Negative for injury, pm1 pain, redness, and discharge, ENT: Negative for injury, pain, and discharge, Neck: Negative for injury, pain, and swelling, Cardiovascular: Negative for chest pain, palpitations, and edema, Respiratory: Negative for shortness of breath, cough, wheezing, and pleuritic chest pain. 15:30 Back: Negative for injury and pain, : Negative for injury, bleeding, discharge, and swelling, MS/Extremity: Negative for injury and deformity, Skin: Negative for injury, rash, and discoloration. 15:30 Abdomen/GI: Positive for abdominal pain, Negative for nausea, vomiting, and diarrhea, constipation. 15:30 Neuro: Negative for dizziness, headache, numbness, tingling. 15:30 Psych: Positive for depression, alcohol dependence, suicidal ideation. Exam: 15:30 Constitutional: This is a well developed, well nourished patient who is awake, alert, pm1 and in no acute distress. Head/Face: Normocephalic, atraumatic. Neck: Trachea midline, no thyromegaly or masses palpated, and no cervical lymphadenopathy. Supple, full range of motion without nuchal rigidity, or vertebral point tenderness. No Meningismus. Chest/axilla: Normal chest wall appearance and motion. Nontender with no deformity. No lesions are appreciated. Cardiovascular: Regular rate and rhythm with a normal S1 and S2. No gallops, murmurs, or rubs. Normal PMI, no JVD. No pulse deficits. Respiratory: Lungs have equal breath sounds bilaterally, clear to auscultation and percussion. No rales, rhonchi or wheezes noted. No increased work of breathing, no retractions or nasal flaring. 15:30 Back: No spinal tenderness. No costovertebral tenderness. Full range of motion. Skin: Warm, dry with normal turgor. Normal color with no rashes, no lesions, and no evidence of cellulitis. MS/ Extremity: Pulses equal, no cyanosis. Neurovascular intact. Full, normal range of motion. 15:30 Abdomen/GI: Inspection: obese Bowel sounds: normal, Palpation: abdomen is soft and non-tender, in all quadrants. 15:30 Neuro: Orientation: is normal, Motor: is normal, moves all fours, Sensation: is normal, no obvious gross deficits. Vital Signs: 15:23 BP 127 / 76; Pulse 77; Resp 16; Temp 97.4; Pulse Ox 100% on R/A; Weight 102.06 kg; hb Height 5 ft. 10 in. (177.80 cm); Pain 8/10; 20:04 BP 127 / 80; Pulse 83; Resp 18; Temp 99.3(T); Pulse Ox 94% on R/A; fu 15:23 Body Mass Index 32.28 (102.06 kg, 177.80 cm) hb MDM: 15:13 Patient medically screened. pm1 21:00 ED course: Pending [facility] Evaluation. pm1 21:55 Data reviewed: vital signs. Data interpreted: Pulse oximetry: on room air is 100 %. pm1 Interpretation: normal. 23:28 Counseling: I had a detailed discussion with the patient and/or guardian regarding: the pm1 historical points, exam findings, and any diagnostic results supporting the discharge/admit diagnosis, lab results, the need for outpatient follow up, a family practitioner, to return to the emergency department if symptoms worsen or persist or if there are any questions or concerns that arise at home. 23:28 ED course: Brie sirisha Mclaughlin has been working with him for the past 9 years. And pm1 she knows him from [facility]. "He has never attempted suicide" and "He is just looking for a place to sleep." "He did this all the time at [place]." . 06/06 15:30 Order name: Acetaminophen; Complete Time: 17:12 pm06/06 15:30 Order name: Basic Metabolic Panel; Complete Time: 17:12 pm06/06 15:30 Order name: CBC with Diff; Complete Time: 16:26 pm06/06 15:30 Order name: ETOH Level; Complete Time: 16:26 pm06/06 15:30 Order name: Hepatic Function; Complete Time: 17:12 pm06/06 15:30 Order name: PT-INR; Complete Time: 17:12 pm06/06 15:30 Order name: Ptt, Activated; Complete Time: 17:12 pm06/06 15:30 Order name: Salicylate; Complete Time: 16:26 pm06/06 15:30 Order name: Urine Drug Screen; Complete Time: 16:26 pm06/06 15:30 Order name: EKG; Complete Time: 15:35 pm06/06 16:14 Order name: Urine Dipstick--Ancillary (enter results); Complete Time: 16:26 eb 06/06 16:25 Order name: CBC Smear Scan; Complete Time: 16:26 EDNY 06/06 15:30 Order name: EKG - Nurse/Tech; Complete Time: 16:06 pm1 06/06 15:30 Order name: IV Saline Lock; Complete Time: 15:51 pm1 06/06 15:30 Order name: Labs collected and sent; Complete Time: 15:51 pm1 06/06 15:30 Order name: Urine Dipstick-Ancillary (obtain specimen); Complete Time: 16:06 pm1 Administered Medications: 16:12 Drug: Banana Bag - (NS 0.9% 1000 ml, foLIC Acid 1 mg, Thiamine 100 mg, Multivitamin 1 sg amp) Route: IV; Rate: calculated rate; Site: right forearm; 21:20 Follow up: Response: No adverse reaction fu 21:29 Drug: Tylenol 500 mg Route: PO; fu 22:30 Follow up: Response: Pain is decreased fu Disposition: 06/06/19 23:31 Discharged to Home. Impression: Alcohol abuse, Homelessness. - Condition is Stable. - Discharge Instructions: Finding Treatment for Addiction, Alcohol Abuse and Nutrition. - Medication Reconciliation Form, Thank You Letter, Antibiotic Education, Prescription Opioid Use form. - Follow up: Emergency Department; When: As needed; Reason: Worsening of condition. Follow up: Private Physician; When: 2 - 3 days; Reason: Recheck today's complaints, Continuance of care, Re-evaluation by your physician. - Problem is new. - Symptoms have improved. Addendum: 06/08/2019 07:39 Co-signature as Attending Physician, Domenic Roper MD I agree with the assessment and c kingsley plan of care. Signatures: Dispatcher [employer] [facility] Nakul Mao RN RN sg Anderson, Corey, MD MD cha Marinas, Patrick, E MERCHANT E MERCHANT pm1 Selena Ariza, Abbe Hallman RN, RN RN [email or web address] Brandon Du RN RN fu Corrections: (The following items were deleted from the chart) 06/07 06:46 06/06 23:31 06/06/2019 23:31 Discharged to Home. Impression: Alcohol abuseHomelessness. [email or web address] Condition is Stable. Forms are Medication Reconciliation Form, Thank You Letter, Antibiotic Education, Prescription Opioid Use. Follow up: Emergency Department; When: As needed; Reason: Worsening of condition. Follow up: Private Physician; When: 2 - 3 days; Reason: Recheck today's complaints, Continuance of care, Re-evaluation by your physician. Problem is new. Symptoms have improved. pm1
[2019-06-07 07:02] VITALS: BP 127/80; TEMP 99.3; O2SAT 94
[2019-06-07] MEDS ORDERED: FOLIC ACID 1 MG, MULTIVITAMINS INJ 10 ML, THIAMINE HCL 100 MG in NA CHLORIDE 0.9% 1,000 ML IV SCH (09:00)
--- NOTE | 2019-06-08 05:29 | EKG ---
Test Date: 2019-06-06 Test Time: 16:00:48 Websphere Developer: SWG MEASUREMENT RESULTS: Intervals: Rate: 86 LA: 148 QRSD: 88 QT: 384 QTc: 459 Raven: P: 69 LA: 148 QRS: 52 T: 47 INTERPRETIVE STATEMENTS: Sinus rhythm with premature atrial complexes Cannot rule out Anterior infarct, age undetermined Abnormal ECG Compared to ECG 06/04/2019 09:44:51 Atrial premature complex(es) now present Ventricular premature complex(es) no longer present Myocardial infarct finding still present Electronically Signed On 06-08-19 05:29:02 PLATINUM AND PALLADIUM KETTLE TENDER by Manuel Blankenship
== END 2019-06-07 06:46 | disposition home or self-care (01) ==
LOC: ER 14:57
DX: F10.20 Alcohol dependence, uncomplicated (principal); Z59.0 Homelessness; F32.9 Major depressive disorder, single episode, unspecified; R45.851 Suicidal ideations; F17.210 Nicotine dependence, cigarettes, uncomplicated
CPT/HCPCS: 93005; 85025; 80048; 36415; 80320; 80329 ×2; 85610; 80076; 80307 ×8; 85730; 81003; 96374; 99285; J3411; J7030

== ENCOUNTER 2019-06-24 10:45 | Emergency (ER) | payer OTHER ==
--- OUTSIDE RECORDS SUMMARY | 2019-06-24 10:49 | XMS REPORT ---
:1955 Author Organization [facility] Address [address] [place] [address] [place] [address] Care Team Providers Name Role Phone UNKNOWN, REFFERING Primary Care Provider Unavailable PANFILO FLAHERTY Unavailable Unavailable Problems This patient has no known problems. Allergies, Adverse Reactions, Alerts This patient has no known allergies or adverse reactions. Medications This patient has no known medications. Results Test Description Test Time Test Comments Text Results Atomic Results Result Comments Cerebrospinal Fluid Culture w/ Gram Stai 2019-04-18 10:04:31 Test Item Value Reference Range Comments Final Report (test code=Final Report) No growth at 24 hours. No growth at 48 hours. No growth at 3 days. No growth at 4 days. No growth at 5 days. Gram Stain Report (test code=Gram Stain Few White Blood Cells No organisms seen. Report) NM [id number] 14:28:01Patient: JAD GARCIA Date/Time04/15/2019 13:00 CSTReason for ExamHydrocephalus congenitalReportEXAM: NM CISTERNOGRAMINDICATION: Hydrocephalus congenitalCOMPARISON: CT head dated March 20, 2019TECHNIQUE- Planar scintigraphic images of the brain and spine were obtained after the administration of intrathecal radionuclide (approximately 673 uCi of indium-111 DTPA). Images were obtained at 2.5 hours, 20 hours, and 48 hours postinjection.FINDINGS:There is entry of radiopharmaceutical into the lateral ventricles at 2.5 hours. At 20 hours, activity is seen overlying the cerebral convexities. At 48 hours, the basilar cistern activity has decreased with persistent activity over the convexities.IMPRESSION:1. Normal study.2. Normal movement of the radiotracer from the lateral ventricles to the cerebral convexities.LOCATION: R16 Final Dictated by: MD Hutchison Melanie CDictated DT/TM: 04/15/2019 2:26 pmSigned by: MD Hutchison Melanie CSigned ( Electronic Signature): 04/15/2019 2:28 pmCerebrospinal Fluid Culture w/ Gram [id number] 08:52:04 Test Item Value Reference Range Comments Final Report (test code=Final No growth at 24 hours. No Report) growth at 48 hours. No growth at 3 days. No growth at 4 days. No growth at 5 days. Gram Stain Report (test Few White Blood Cells No code=Gram Stain Report) organisms seen. Cell Count Cerebrospinal [id number] 15:51:34 Test Item Value Reference Range Comments CSF Cell Ct Tube # (test code=CSF Cell Ct Tube #) 2 <=4 WBC CSF (test code=WBC CSF) 2.0 mm3 0.0-5.0 RBC CSF (test code=RBC CSF) 10 mm3 0-0 Color CSF (test code=Color CSF) Colorless Colorless Clarity CSF (test code=Clarity CSF) Clear Clear Cytospin Performed CSF (test code=Cytospin No Performed CSF) Glucose Level [id number] 15:20:45 Test Item Value Reference Range Comments Glucose CSF (test code=Glucose CSF) 66 mg/dL 40-70 Protein [id number] 15:20:45 Test Item Value Reference Range Comments Protein CSF (test code=Protein CSF) 44 mg/dL 15-45 IR [id number] 14:54:31Patient: JAD GARCIA Date/Time04/13/2019 14:15 CSTReason for Examfor cisternogramReportEXAM: LUMBAR PUNCTURE, FLUOROSCOPIC GUIDANCEINDICATION: Evaluate for normal pressure hydrocephalusTECHNIQUE AND FINDINGS:Informed consent was obtained from the patient, and time out procedure was performed.The lower back was prepped and draped in sterile fashion with the patient in left lateral decubitus position. Under fluoroscopic guidance a 22 gauge needle was advanced into the thecal sac at the L3-L4 interspace. CSF was confirmed. The opening pressure was 13 cm of water. Thereafter, 673 uCi of indium DTPA was administered intrathecally. Patient will undergo nuclear medicine imaging and will reported separately.FLUOROSCOPY TIME: 1 minute 31 secondsDOSE: 98.69 mGyNumber Of Images: 127IMPRESSION: Fluoroscopically guided lumbar puncture for nuclear medicine cisternogram.LOCATION: R16 Final Dictated by: MD Hutchison Melanie CDictated DT/TM: 04/13/2019 2:52 pmSigned by: MD Hutchison Melanie CSigned (Electronic Signature): 04/13/2019 2:54pmProthrombin Time and [id number] 10:33:46 Test Item Value Reference Range Comments Prothrombin Time (test code=Prothrombin Time) 11.6 seconds 9.8-13.4 INR (test code=INR) 1.0 ratio 0.6-1.2 IG [id number] 10:01:22 Test Item Value Reference Range Comments IG (test code=IG) 0.3 % 0.0-5.0 IG Abs (test code=IG Abs) 0 x10 Complete Blood Count with [id number] 10:01:21 Test Item Value Reference Range Comments WBC (test code=WBC) 7.5 x10 4.4-10.5 RBC (test code=RBC) 4.37 x10 4.10-5.70 Hgb (test code=Hgb) 13.5 g/dL 13.4-17.4 Hct (test code=Hct) 41.1 % 38.7-52.0 MCV (test code=MCV) 94.10 fL 80.00-100.00 MCHC (test code=MCHC) 32.80 g/dL 32.00-37.50 MCH (test code=MCH) 30.9 pg 27.0-32.5 RDW CV (test code=RDW CV) 13.5 % 11.5-14.5 Platelets (test 244.0 x10 140.0-440.0 code=Platelets) MPV (test code=MPV) 10.2 fL Slide Review (test code=Slide Auto Auto Result created by Review) GL_SJM_SLIDE_REV_AUTO nRBC (test code=nRBC) 0 NRBC Abs (test code=NRBC Abs) 0.00 x10 IPF (test code=IPF) 0 % Automated [id number] 10:01:21 Test Item Value Reference Range Comments Neutro Auto (test code=Neutro Auto) 62.6 % 36.0-70.0 Lymph Auto (test code=Lymph Auto) 19.2 % 12.0-44.0 [place] Auto (test code=[place] Auto) 13.9 % 0.0-11.0 Eos, Auto (test code=Eos, Auto) 3.2 % 0.0-7.0 Basophil Auto (test code=Basophil Auto) 0.8 % 0.0-2.0 Neutro Absolute (test code=Neutro Absolute) 4.7 x10 1.6-7.4 Lymph Absolute (test code=Lymph Absolute) 1.44 x10 .50-4.60 [place] Absolute (test code=[place] Absolute) 1.04 x10 .00-1.20 Eos Absolute (test code=Eos Absolute) 0.24 x10 0.00-0.74 Baso Absolute (test code=Baso Absolute) 0.06 x10 0.00-0.21 CT Brain/Head w/o [id number] 13:30:44Patient: JAD GARCIA Date/Time03/20/2019 13:10 CSTReason for Examhydrocephalus;Altered level of consciousnessReportEXAM: CT BRAIN WITHOUT CONTRASTINDICATION: Altered level of consciousnessCOMPARISON: None availableTECHNIQUE: Routine axial noncontrast CT images of the brain were obtained.IV contrast: None.DLP: 997.18 mGy-cmFINDINGS:No intra-axial or extra -axial fluid collections are identified. No acute hemorrhage.There is normal differentiation of the yip and white matter. There is prominence of the supratentorial and infratentorial ventricular size consistent with mild hydrocephalus. No midline shift or mass effect. The basal cisterns are patent. The posterior fossa and fourth ventricle are normal.The paranasal sinuses and mastoidair cells are clear. No calvarial lesions. Skull base is intact. Orbits and globes are unremarkable.IMPRESSION:1. No acute intracranial hemorrhage.2. Prominence of the supratentorial and infratentorial ventricular size consistent with mild hydrocephalus.LOCATION: G25Jhve CT exam was performed according to our departmental dose optimization program, which includes automated exposure control, adjustment of the mA and/or kV according to the patient size and/or use of iterative reconstructive technique. Final Dictated by: MD Hutchison Melanie CDictated DT/TM: 03/20/2019 1:29 pmSigned by : MD Hutchison Melanie CSigned (Electronic Signature): 03/20/2019 1:30 pmThyroid Stimulating [id number] 05:38:46 Test Item Value Reference Range Comments TSH (test code=TSH) 3.730 mIU/mL 0.270-4.200 Comprehensive Metabolic [id number] 05:20:19 Test Item Value Reference Range Comments Sodium Level (test code=Sodium Level) 140.0 mmol/L 135.0-145.0 Potassium Level (test code=Potassium Level) 4.2 mmol/L 3.5-5.1 Chloride Level (test code=Chloride Level) 99 mmol/L 98-105 CO2 (test code=CO2) 33 mmol/L 22-29 Anion Gap (test code=Anion Gap) 8 mmol/L 7-16 BUN (test code=BUN) 18.90 mg/dL 8.00-23.00 Creatinine Level (test code=Creatinine Level) 0.60 mg/dL 0.70-1.20 BUN/Creat Ratio (test code=BUN/Creat Ratio) 32 Glucose Level (test code=Glucose Level) 118 mg/dL 70-115 Calcium Level (test code=Calcium Level) 9.9 mg/dL 8.3-10.5 Alk Phos (test code=Alk Phos) 61 U/L 40-129 Bilirubin Total (test code=Bilirubin Total) 0.6 mg/dL 0.1-0.9 Albumin Level (test code=Albumin Level) 3.6 g/dL 3.5-5.2 Protein Total (test code=Protein Total) 6.0 g/dL 6.4-8.3 ALT (test code=ALT) 87 U/L 1-41 AST (test code=AST) 79 U/L 1-40 Globulin (test code=Globulin) 2.4 g/dL 2.9-3.1 A/G Ratio (test code=A/G Ratio) 1.5 ratio Comprehensive Metabolic [id number] 05:20:19 Test Item Value Reference Range Comments Sodium Level (test 140.0 mmol/L 135.0-145.0 code=Sodium Level) Potassium Level (test 4.2 mmol/L 3.5-5.1 code=Potassium Level) Chloride Level (test 99 mmol/L 98-105 code=Chloride Level) CO2 (test code=CO2) 33 mmol/L 22-29 Anion Gap (test 8 mmol/L 7-16 code=Anion Gap) BUN (test code=BUN) 18.90 mg/dL 8.00-23.00 Creatinine Level (test 0.60 mg/dL 0.70-1.20 code=Creatinine Level) BUN/Creat Ratio (test 32 code=BUN/Creat Ratio) Glucose Level (test 118 mg/dL 70-115 code=Glucose Level) Calcium Level (test 9.9 mg/dL 8.3-10.5 code=Calcium Level) Alk Phos (test code=Alk 61 U/L 40-129 Phos) Bilirubin Total (test 0.6 mg/dL 0.1-0.9 code=Bilirubin Total) Albumin Level (test 3.6 g/dL 3.5-5.2 code=Albumin Level) Protein Total (test 6.0 g/dL 6.4-8.3 code=Protein Total) ALT (test code=ALT) 87 U/L 1-41 AST (test code=AST) 79 U/L 1-40 Globulin (test 2.4 g/dL 2.9-3.1 code=Globulin) A/G Ratio (test code=A/G 1.5 ratio Ratio) eGFR AA (test code=eGFR >60 mL/min/1.73 m2 eGFR (estimated AA) Glomerular Filtration Rate) is an estimated value, calculated from the patient's serum creatinine using the MDRD equation. It is NOT the patient's actual GFR. The eGFR provides a more clinically useful measure of kidney disease than serum creatinine alone.This calculation takes sex and race into account, if the information is provided. If the race is not provided, and the patient is -[place], multiply by 1.212. If sex is not provided, and the patient is female, multiply by 0.742. Results for patients <18 years of age have not been validated by the MDRD study and should be interpreted with caution. eGFR Result Interpretation:eGFR > or=60 is in the Normal RangeeGFR < 60 may mean kidney diseaseeGFR < 15 may mean kidney failure Ranges recommended by the National Kidney Foundation, http://nkdep.nih.gov Lipid [id number] 05:20:19 Test Item Value Reference Range Comments Cholesterol Total (test 169 mg/dL 0-200 RISK OF HEART DISEASEPublished code=Cholesterol Total) by [place] [employer] Analyte Optimal Borderline Increased RiskCHOL <200 200-239 >240TRIG <150 150-199 >200HDL Male >60 <40HDL Female >60 <50LDL <100 130-159 >160LDL Near optimal is 100-129 Triglycerides (test 65 mg/dL 9-200 code=Triglycerides) HDL (test code=HDL) 68 mg/dL 40-60 LDL (test code=LDL) 88 mg/dL 0-130 The equation being used in this calculation is LDL=(Chol - HDL) - (Trig / 5) VLDL (test code=VLDL) 13 mg/dL 5-40 The equation being used in this calculation is VLDL=Trig / 5 Chol/HDL (test 2.5 ratio 0.0-5.0 code=Chol/HDL) LDL/HDL Ratio (test 1 The equation being used in this code=LDL/HDL Ratio) calculation is LDL/HDL Ratio=LDL Calc/HDL Chol Comprehensive Metabolic [id number] 05:20:19 Test Item Value Reference Range Comments Sodium Level (test 140.0 mmol/L 135.0-145.0 code=Sodium Level) Potassium Level (test 4.2 mmol/L 3.5-5.1 code=Potassium Level) Chloride Level (test 99 mmol/L 98-105 code=Chloride Level) CO2 (test code=CO2) 33 mmol/L 22-29 Anion Gap (test 8 mmol/L 7-16 code=Anion Gap) BUN (test code=BUN) 18.90 mg/dL 8.00-23.00 Creatinine Level (test 0.60 mg/dL 0.70-1.20 code=Creatinine Level) BUN/Creat Ratio (test 32 code=BUN/Creat Ratio) Glucose Level (test 118 mg/dL 70-115 code=Glucose Level) Calcium Level (test 9.9 mg/dL 8.3-10.5 code=Calcium Level) Alk Phos (test code=Alk 61 U/L 40-129 Phos) Bilirubin Total (test 0.6 mg/dL 0.1-0.9 code=Bilirubin Total) Albumin Level (test 3.6 g/dL 3.5-5.2 code=Albumin Level) Protein Total (test 6.0 g/dL 6.4-8.3 code=Protein Total) ALT (test code=ALT) 87 U/L 1-41 AST (test code=AST) 79 U/L 1-40 Globulin (test 2.4 g/dL 2.9-3.1 code=Globulin) A/G Ratio (test code=A/G 1.5 ratio Ratio) eGFR AA (test code=eGFR >60 mL/min/1.73 m2 eGFR (estimated AA) Glomerular Filtration Rate) is an estimated value, calculated from the patient's serum creatinine using the MDRD equation. It is NOT the patient's actual GFR. The eGFR provides a more clinically useful measure of kidney disease than serum creatinine alone.This calculation takes sex and race into account, if the information is provided. If the race is not provided, and the patient is -[place], multiply by 1.212. If sex is not provided, and the patient is female, multiply by 0.742. Results for patients <18 years of age have not been validated by the MDRD study and should be interpreted with caution. eGFR Result Interpretation:eGFR > or=60 is in the Normal RangeeGFR < 60 may mean kidney diseaseeGFR < 15 may mean kidney failure Ranges recommended by the National Kidney Foundation, http://nkdep.nih.gov eGFR Non-AA (test >60.00 mL/min/1.73 eGFR (estimated code=eGFR Non-AA) m2 Glomerular Filtration Rate) is an estimated value, calculated from the patient's serum creatinine using the MDRD equation. It is NOT the patient's actual GFR. The eGFR provides a more clinically useful measure of kidney disease than serum creatinine alone.This calculation takes sex and race into account, if the information is provided. If the race is not provided, and the patient is -[place], multiply by 1.212. If sex is not provided, and the patient is female, multiply by 0.742. Results for patients <18 years of age have not been validated by the MDRD study and should be interpreted with caution. eGFR Result Interpretation:eGFR > or=60 is in the Normal RangeeGFR < 60 may mean kidney diseaseeGFR < 15 may mean kidney failure Ranges recommended by the National Kidney Foundation, http://nkdep.nih.gov Automated [id number] 05:14:20 Test Item Value Reference Range Comments Neutro Auto (test code=Neutro Auto) 57.7 % 36.0-70.0 Lymph Auto (test code=Lymph Auto) 23.3 % 12.0-44.0 [place] Auto (test code=[place] Auto) 16.8 % 0.0-11.0 Eos, Auto (test code=Eos, Auto) 1.1 % 0.0-7.0 Basophil Auto (test code=Basophil Auto) 0.4 % 0.0-2.0 Neutro Absolute (test code=Neutro Absolute) 4.4 x10 1.6-7.4 Lymph Absolute (test code=Lymph Absolute) 1.77 x10 .50-4.60 [place] Absolute (test code=[place] Absolute) 1.28 x10 .00-1.20 Eos Absolute (test code=Eos Absolute) 0.08 x10 0.00-0.74 Baso Absolute (test code=Baso Absolute) 0.03 x10 0.00-0.21 IG [id number] 05:14:20 Test Item Value Reference Range Comments IG (test code=IG) 0.7 % 0.0-5.0 IG Abs (test code=IG Abs) 0 x10 Complete Blood Count with [id number] 05:14:19 Test Item Value Reference Range Comments WBC (test code=WBC) 7.6 x10 4.4-10.5 RBC (test code=RBC) 4.01 x10 4.10-5.70 Hgb (test code=Hgb) 13.3 g/dL 13.4-17.4 Hct (test code=Hct) 39.9 % 38.7-52.0 MCV (test code=MCV) 99.50 fL 80.00-100.00 MCHC (test code=MCHC) 33.30 g/dL 32.00-37.50 RDW CV (test code=RDW CV) 13.4 % 11.5-14.5 MCH (test code=MCH) 33.2 pg 27.0-32.5 Platelets (test 265.0 x10 140.0-440.0 code=Platelets) MPV (test code=MPV) 10.5 fL Slide Review (test code=Slide Auto Auto Result created by Review) GL_SJM_SLIDE_REV_AUTO GL_SJM_XN_RFLX nRBC (test code=nRBC) 0 NRBC Abs (test code=NRBC Abs) 0.00 x10 Pos Diff XN (test code=Pos A Diff XN) IPF (test code=IPF) 0 % Urine [id number] 08:56:48 C Urine Added by GL_SJM_UA_CUL_INDNo growth at 24 hours. No growth at 48 hours.RPR [id number] 01:13:45 Test Item Value Reference Range Comments RPR Qual (test code=RPR Qual) Non-Reactive Non-Reactive Reactive Control (test code=Reactive Control) Reactive Weak Reactive Control (test code=Weak Reactive Weak Reactive Control) Non-Reactive Control (test code=Non-Reactive Non-Reactive Control) Lot # (test code=Lot #) [id number] Expiration Dt (test code=Expiration Dt) 03-05-20 Comprehensive Metabolic [id number] 03:43:07 Test Item Value Reference Range Comments Sodium Level (test code=Sodium Level) 135.0 mmol/L 135.0-145.0 Potassium Level (test code=Potassium Level) 5.0 mmol/L 3.5-5.1 Chloride Level (test code=Chloride Level) 91 mmol/L 98-105 CO2 (test code=CO2) 35 mmol/L 22-29 Anion Gap (test code=Anion Gap) 9 mmol/L 7-16 BUN (test code=BUN) 19.50 mg/dL 8.00-23.00 Creatinine Level (test code=Creatinine Level) 0.60 mg/dL 0.70-1.20 BUN/Creat Ratio (test code=BUN/Creat Ratio) 32 Glucose Level (test code=Glucose Level) 104 mg/dL 70-115 Calcium Level (test code=Calcium Level) 10.5 mg/dL 8.3-10.5 Alk Phos (test code=Alk Phos) 73 U/L 40-129 Bilirubin Total (test code=Bilirubin Total) 0.9 mg/dL 0.1-0.9 Albumin Level (test code=Albumin Level) 4.1 g/dL 3.5-5.2 Protein Total (test code=Protein Total) 6.9 g/dL 6.4-8.3 ALT (test code=ALT) 79 U/L 1-41 AST (test code=AST) 140 U/L 1-40 Globulin (test code=Globulin) 2.8 g/dL 2.9-3.1 A/G Ratio (test code=A/G Ratio) 1.5 ratio Comprehensive Metabolic [id number] 03:43:07 Test Item Value Reference Range Comments Sodium Level (test 135.0 mmol/L 135.0-145.0 code=Sodium Level) Potassium Level (test 5.0 mmol/L 3.5-5.1 code=Potassium Level) Chloride Level (test 91 mmol/L 98-105 code=Chloride Level) CO2 (test code=CO2) 35 mmol/L 22-29 Anion Gap (test 9 mmol/L 7-16 code=Anion Gap) BUN (test code=BUN) 19.50 mg/dL 8.00-23.00 Creatinine Level (test 0.60 mg/dL 0.70-1.20 code=Creatinine Level) BUN/Creat Ratio (test 32 code=BUN/Creat Ratio) Glucose Level (test 104 mg/dL 70-115 code=Glucose Level) Calcium Level (test 10.5 mg/dL 8.3-10.5 code=Calcium Level) Alk Phos (test code=Alk 73 U/L 40-129 Phos) Bilirubin Total (test 0.9 mg/dL 0.1-0.9 code=Bilirubin Total) Albumin Level (test 4.1 g/dL 3.5-5.2 code=Albumin Level) Protein Total (test 6.9 g/dL 6.4-8.3 code=Protein Total) ALT (test code=ALT) 79 U/L 1-41 AST (test code=AST) 140 U/L 1-40 Globulin (test 2.8 g/dL 2.9-3.1 code=Globulin) A/G Ratio (test code=A/G 1.5 ratio Ratio) eGFR AA (test code=eGFR >60 mL/min/1.73 m2 eGFR (estimated AA) Glomerular Filtration Rate) is an estimated value, calculated from the patient's serum creatinine using the MDRD equation. It is NOT the patient's actual GFR. The eGFR provides a more clinically useful measure of kidney disease than serum creatinine alone.This calculation takes sex and race into account, if the information is provided. If the race is not provided, and the patient is -[place], multiply by 1.212. If sex is not provided, and the patient is female, multiply by 0.742. Results for patients <18 years of age have not been validated by the MDRD study and should be interpreted with caution. eGFR Result Interpretation:eGFR > or=60 is in the Normal RangeeGFR < 60 may mean kidney diseaseeGFR < 15 may mean kidney failure Ranges recommended by the National Kidney Foundation, http://nkdep.nih.gov Comprehensive Metabolic [id number] 03:43:07 Test Item Value Reference Range Comments Sodium Level (test 135.0 mmol/L 135.0-145.0 code=Sodium Level) Potassium Level (test 5.0 mmol/L 3.5-5.1 code=Potassium Level) Chloride Level (test 91 mmol/L 98-105 code=Chloride Level) CO2 (test code=CO2) 35 mmol/L 22-29 Anion Gap (test 9 mmol/L 7-16 code=Anion Gap) BUN (test code=BUN) 19.50 mg/dL 8.00-23.00 Creatinine Level (test 0.60 mg/dL 0.70-1.20 code=Creatinine Level) BUN/Creat Ratio (test 32 code=BUN/Creat Ratio) Glucose Level (test 104 mg/dL 70-115 code=Glucose Level) Calcium Level (test 10.5 mg/dL 8.3-10.5 code=Calcium Level) Alk Phos (test code=Alk 73 U/L 40-129 Phos) Bilirubin Total (test 0.9 mg/dL 0.1-0.9 code=Bilirubin Total) Albumin Level (test 4.1 g/dL 3.5-5.2 code=Albumin Level) Protein Total (test 6.9 g/dL 6.4-8.3 code=Protein Total) ALT (test code=ALT) 79 U/L 1-41 AST (test code=AST) 140 U/L 1-40 Globulin (test 2.8 g/dL 2.9-3.1 code=Globulin) A/G Ratio (test code=A/G 1.5 ratio Ratio) eGFR AA (test code=eGFR >60 mL/min/1.73 m2 eGFR (estimated AA) Glomerular Filtration Rate) is an estimated value, calculated from the patient's serum creatinine using the MDRD equation. It is NOT the patient's actual GFR. The eGFR provides a more clinically useful measure of kidney disease than serum creatinine alone.This calculation takes sex and race into account, if the information is provided. If the race is not provided, and the patient is -[place], multiply by 1.212. If sex is not provided, and the patient is female, multiply by 0.742. Results for patients <18 years of age have not been validated by the MDRD study and should be interpreted with caution. eGFR Result Interpretation:eGFR > or=60 is in the Normal RangeeGFR < 60 may mean kidney diseaseeGFR < 15 may mean kidney failure Ranges recommended by the National Kidney Foundation, http://nkdep.nih.gov eGFR Non-AA (test >60.00 mL/min/1.73 eGFR (estimated code=eGFR Non-AA) m2 Glomerular Filtration Rate) is an estimated value, calculated from the patient's serum creatinine using the MDRD equation. It is NOT the patient's actual GFR. The eGFR provides a more clinically useful measure of kidney disease than serum creatinine alone.This calculation takes sex and race into account, if the information is provided. If the race is not provided, and the patient is -[place], multiply by 1.212. If sex is not provided, and the patient is female, multiply by 0.742. Results for patients <18 years of age have not been validated by the MDRD study and should be interpreted with caution. eGFR Result Interpretation:eGFR > or=60 is in the Normal RangeeGFR < 60 may mean kidney diseaseeGFR < 15 may mean kidney failure Ranges recommended by the National Kidney Foundation, http://nkdep.nih.gov Drugs of Abuse Urine [id number] 03:23:01 Test Item Value Reference Range Comments Amphetamine Screen Ur (test Negative Negative For diagnostic purposes code=Amphetamine Screen Ur) only. Positive results should always be assessed in conjunction with a patient's medical history. Barbiturate Screen Ur (test Negative Negative code=Barbiturate Screen Ur) Benzodiazepines Ur (test Negative Negative code=Benzodiazepines Ur) Cocaine Screen Ur (test Negative Negative code=Cocaine Screen Ur) U Methadone (test code=U Negative Negative Methadone) Opiate Screen Ur (test Negative Negative code=Opiate Screen Ur) U PCP Scrn (test code=U PCP Negative Negative Scrn) U Propoxyphene (test code=U Negative Negative Propoxyphene) Cannabinoid Screen Ur (test Negative Negative code=Cannabinoid Screen Ur) Urinalysis [id number] 03:20:16 Test Item Value Reference Range Comments UA WBC (test code=UA WBC) 0-5 0-5 UA RBC (test code=UA RBC) None Seen 0-5 UA Bacteria (test code=UA Bacteria) Few UA Squam Epithelial (test code=UA Squam 0-5 Epithelial) Urinalysis with Culture, if [id number] 03:12:05 Test Item Value Reference Range Comments UA Color (test code=UA Color) YELLO Yellow UA Appear (test code=UA CLEAR Clear Appear) UA pH (test code=UA pH) 6.5 UA Spec Grav (test code=UA 1.020 1.001-1.035 Spec Grav) UA Glucose (test code=UA NEG Negative Glucose) UA Bili (test code=UA Bili) NEG Negative UA Ketones (test code=UA 5 mg/dL Negative Ketones) UA Blood (test code=UA Blood) NEG Negative UA Protein (test code=UA NEG Negative Protein) UA Urobilinogen (test code=UA 1 mg/dL >0.2 Urobilinogen) UA Nitrite (test code=UA NEG Negative Nitrite) UA Leuk Est (test code=UA Leuk 25 cells/mcL Negative Est) UA Micro Ind? (test code=UA Indicated Not Indicated Result created by rule Micro Ind?) GL_SJM_UA_MICRO_IND Automated [id number] 03:12:00 Test Item Value Reference Range Comments Neutro Auto (test code=Neutro Auto) 65.4 % 36.0-70.0 Lymph Auto (test code=Lymph Auto) 18.9 % 12.0-44.0 [place] Auto (test code=[place] Auto) 13.9 % 0.0-11.0 Eos, Auto (test code=Eos, Auto) 0.6 % 0.0-7.0 Basophil Auto (test code=Basophil Auto) 0.6 % 0.0-2.0 Neutro Absolute (test code=Neutro Absolute) 5.7 x10 1.6-7.4 Lymph Absolute (test code=Lymph Absolute) 1.65 x10 .50-4.60 [place] Absolute (test code=[place] Absolute) 1.21 x10 .00-1.20 Eos Absolute (test code=Eos Absolute) 0.05 x10 0.00-0.74 Baso Absolute (test code=Baso Absolute) 0.05 x10 0.00-0.21 IG [id number] 03:12:00 Test Item Value Reference Range Comments IG (test code=IG) 0.6 % 0.0-5.0 IG Abs (test code=IG Abs) 0 x10 Complete Blood Count with [id number] 03:11:59 Test Item Value Reference Range Comments WBC (test code=WBC) 8.7 x10 4.4-10.5 RBC (test code=RBC) 4.29 x10 4.10-5.70 Hgb (test code=Hgb) 14.4 g/dL 13.4-17.4 Hct (test code=Hct) 43.0 % 38.7-52.0 MCV (test code=MCV) 100.20 fL 80.00-100.00 MCHC (test code=MCHC) 33.50 g/dL 32.00-37.50 MCH (test code=MCH) 33.6 pg 27.0-32.5 RDW CV (test code=RDW CV) 13.6 % 11.5-14.5 Platelets (test 271.0 x10 140.0-440.0 code=Platelets) MPV (test code=MPV) 10.4 fL Slide Review (test code=Slide Auto Auto Result created by Review) [id number] nRBC (test code=nRBC) 0 NRBC Abs (test code=NRBC Abs) 0.00 x10 IPF (test code=IPF) 0 % XR Chest 1 View [id number] 22:35:04Patient: JAD GARCIA Date/Time05/13/201822:10 CSTReason for ExamShortness of breathReportChest one viewLocation: N 13Clinical history shortness of breathTechnique:Single frontal view of the chest was obtained. There is no prior for comparison.Findings:Bony structures are unremarkable. Aortic and hilar outlines are normal. Cardiac silhouetteis within normal limits. There is left basilar atelectasis versus infiltrate. Right lung is clear. No pleural effusion or pneumothorax.Impression:Left basilar atelectasis versus infiltrate. Final Dictated by: MD Flaherty Maria VDictated DT/TM: 05/13/2018 10:33 pmSigned by: MD Flaherty Maria VSigned (Electronic Signature): 05/13/2018 10:35 pmLipid [id number] 08:43:00 Test Item Value Reference Range Comments Cholesterol (test 177 mg/dL 0-200 code=CHOL) Triglycerides (test 95 mg/dL 9-200 code=TRIG) HDL (test code=HDL) 46 mg/dL 40-60 Chol/HDL (test 3.8 Ratio 0.0-5.0 code=CHOLPHDL) LDL, Calculated (test 112 0-130 (NOTE)RISK OF HEART code=LDLC) DISEASEPublished by [place] Heart AssociationAnalyte Optimal Boderline Increased RiskCHOL <200 200-239 >240TRIG <150 150-199 >200HDL Male: >60 <40HDL Female: >60 <50LDL <100 130-159 >160LDL NEAR OPTIMAL IS 100-129 VLDL (test code=VLDL) 19 mg/dL 5-40 LDL/HDL (test code=LDLPHDL) 2 Vitamin [id number] 01:17:00 Test Item Value Reference Range Comments Vitamin B 12 (test code=VITB12) 490 pg/mL 211-946 CBC with [id number] 13:18:00 Test Item Value Reference Range Comments WBC (test code=WBC) 7.4 K/cumm 4.4-10.5 RBC (test code=RBC) 4.46 M/cumm 4.10-5.70 Hemoglobin (test code=HGB) 13.8 gm/dL 13.4-17.4 Hematocrit (test code=HCT) 42.7 % 38.7-52.0 MCV (test code=MCV) 95.6 fL 80-100 MCH (test code=MCH) 30.9 pg 27.0-32.5 MCHC (test code=MCHC) 32.4 g/dL 32.0-37.5 RDW (test code=RDW) 15.4 % 11.5-14.5 Platelet Count (test 265 K/cumm 140-440 code=PLTCT) MPV (test code=MPV) 10.2 fL Diff Method (test code=DIFFM) Manual Neutrophil (test code=NEUT) 46.0 % 36-70 Lymphocyte (test code=LYMPH) 31.0 % 12-44 Monocyte (test code=MONO) 16.0 % 0-11 Eosinophil (test code=EOS) 1.0 % 0-7 Basophil (test code=BASO) 2.0 % 0-2 Reactive Lymph (test 4.0 % 0.0-0.0 code=RXNLYMP) Neutro Abs (test code=ANEUT) 3.4 K/cumm 1.6-7.4 Lymph Abs (test code=ALYMPH) 2.3 K/cumm 0.5-4.6 [place] Abs (test code=AMONO) 1.2 K/cumm 0.0-1.2 Eos Abs (test code=AEOS) 0.07 K/cumm 0.00-0.74 Baso Abs (test code=ABASO) 0.1 K/cumm 0.00-0.21 RBC Morphology (test Slight Anisocytosis code=RBCMRPH) Platelet Morphology (test Large platelets present; code=PLTMRPH) platelet clumping present Platelet Est (test Adequate Platelets on Smear code=PLTEST) Comprehensive Metabolic [id number] 13:03:00 Test Item Value Reference Range Comments Sodium (test code=NA) 135 mmol/L 135-145 Potassium (test code=K) 4.2 mmol/L 3.5-5.1 Chloride (test code=CL) 97 mmol/L 98-105 Carbon Dioxide (test 26 mmol/L 22-29 code=CO2) Glucose (test code=GLU) 85 mg/dL 70-115 Blood Urea Nitrogen 11 mg/dL 8-23 (test code=BUN) Creatinine (test 0.6 mg/dL 0.7-1.2 code=CREAT) Calcium (test code=CA) 9.4 mg/dL 8.3-10.5 Prot Total (test 6.8 g/dL 6.4-8.3 code=TP) Albumin (test code=ALB) 4.1 g/dL 3.5-5.2 A/G Ratio (test 1.5 Ratio code=AGRATIO) Globulin (test 2.7 2.9-3.1 code=GLOB) Bili Total (test 0.9 mg/dL 0.1-0.9 code=TBIL) Alk Phos (test 65 U/L 40-129 code=APHOS) AST (test code=AST) 33 U/L 1-40 ALT (test code=ALT) 46 U/L 1-41 BUN/Creatinine Ratio 18.3 (test code=BCRATIO) Anion Gap (test 12 mmol/L 7-16 code=AGAP) Estimated GFR (test >60 mL/min/1.73m2 eGFR (estimated Glomerular code=GFR) Filtration Rate) is an estimated value,calculated from the patient's serum creatinine using the MDRD equation.It is NOT the patient's actual GFR. The eGFR provides a more clinicallyuseful measure of kidney disease than serum creatinine alone.This calculation takes sex and race into account, if the informationis provided. If the race is not provided, and the patient isAfrican-[place], multiply by 1.212. If sex is not provided, and thepatient is female, multiply by 0.742. Results for patients <18 years ofage have not been validated by the MDRD study and should be interpretedwith caution.eGFR Result Interpretation:eGFR > or=60 is in the Normal RangeeGFR < 60 may mean kidney diseaseeGFR < 15 may mean kidney failureRanges recommended by the National Kidney Foundation,http://nkdep.nih .gov [id number] 12:58:00 Test Item Value Reference Range Comments Amphetamine (test code=AMPH) Negative Negative For diagnostic purposes only, positive results should always be assessedin conjunctionwith the patient's medical history,clinical examination and otherfindings.To fulfill legal requirements, a more specific alternate chemical methodmust be used inorder to obtain a Confirmed analytical result. GC/MS is the preferred confirmatory method. Barbiturates (test code=SKYLA) Negative Negative Benzodiazepine (test Negative Negative code=ZOEY) Cocaine (test code=COCA) Negative Negative Methadone (test code=MTHD) Negative Negative Opiates (test code=OPIA) Negative Negative PCP (test code=PCP) Negative Negative Propoxyphene (test Negative Negative code=PROPOX) THC (test code=THC) Negative Negative Alcohol, Urine (test <0.01 g/dL 0.00-0.01 code=ETOHU)
--- OUTSIDE RECORDS SUMMARY | 2019-06-24 10:49 | XMS REPORT | Clinical Summary ---
:1955 Author Organization [facility] Address [address] [place] [address] Care Team Providers Name Role Phone Pcp, Patient Does Not Have A Primary Care Provider Allergies No Known Allergies Medications Medication Sig Dispensed Refills Start Date End Date Status clotrimazole 1 % Apply to area(s) 1 Tube 0 08/15/2018 Active topical at bedtime. creamIndications: Tinea cruris, COPD with acute exacerbation foLIC acid 1 mg Take 1 tablet by 30 tablet 0 08/16/2018 Active tabletIndications: mouth daily. Tinea cruris, COPD with acute exacerbation lisinopril 5 mg Take 1 tablet by 30 tablet 0 08/16/2018 Active tabletIndications: mouth daily. Tinea cruris, COPD with acute exacerbation thiamine 100 mg Take 1 tablet by 30 tablet 0 08/16/2018 Active tabletIndications: mouth daily. Tinea cruris, COPD with acute exacerbation albuterol 90 Inhale 2 Puffs 8.5 g 0 08/15/2018 Active mcg/actuation every 6 (six) inhalerIndications: hours as needed COPD exacerbation for Wheezing or Shortness of Breath. budesonide-formoterol Inhale 2 Puffs 2 10.2 g 0 08/15/2018 Active 80-4.5 mcg/actuation (two) times daily. inhalerIndications: COPD exacerbation traZODONE 100 mg Take 1 tablet by 60 tablet 0 08/15/2018 Active tabletIndications: mouth at bedtime. Moderate episode of recurrent major depressive disorder predniSONE 20 mg Take 2 tablets by 3 tablet 0 11/17/2018 Active tabletIndications: mouth daily. Tinea cruris, COPD with acute exacerbation doxycycline 100 mg Take 1 capsule by 3 capsule 0 11/17/2018 Active capsuleIndications: mouth every 12 Suicidal ideation (twelve) hours. lactulose 10 gram/15 Take 15 mL by 90 mL 0 11/17/2018 Active mL mouth 2 (two) solutionIndications: times daily as Suicidal ideation needed for Constipation. magnesium oxide 420 mg Take 800 mg by 30 tablet 2 11/18/2018 Active TabIndications: mouth daily. Suicidal ideation PARoxetine 20 mg Take 1 tablet by 30 tablet 2 11/18/2018 Active tabletIndications: mouth daily. Suicidal ideation Polyethylene Glycol Take 1 Packet by 30 Packet 1 11/18/2018 Active 3350 17 gram mouth daily. powderIndications: Suicidal ideation Active Problems Problem Noted Date Tachycardia 11/14/2018 HCAP (healthcare-associated pneumonia) 08/12/2018 Cough 07/21/2018 Acute respiratory failure 06/19/2018 Altered mental state 05/21/2018 COPD exacerbation 05/12/2018 Infection 04/17/2018 Diarrhea 04/16/2018 COPD with acute exacerbation 02/04/2018 CHF (congestive heart failure) 10/19/2017 SOB (shortness of breath) 01/20/2017 Alcohol withdrawal seizure 11/13/2016 Epigastric pain 10/16/2014 Suicidal ideation 08/21/2014 Alcohol withdrawal 02/03/2014 Suicidal ideations 12/28/2013 Orbital fracture 09/09/2013 Delirium tremens 08/06/2013 Alcohol abuse, daily use 09/20/2012 Withdrawal symptoms, alcohol 09/20/2012 Emphysema of lung COPD without exacerbation HCV (hepatitis C virus) HTN (hypertension) Depression EtOH dependence Resolved Problems Problem Noted Date Resolved Date Hypoxia 12/01/2017 12/01/2017 Altered mental status 11/27/2017 12/01/2017 Bipolar disorder 05/21/2018 Encounters Date Type Specialty Care Team Description 11/19/2018 Transition of Care Case Management Nettie Marinelli, Transition Of Care RN 11/13/2018 - Hospital Encounter Medicine - Abbe Hough Tachycardia 11/18/2018 Inpatient only MD Marci Iqbal Joseph 11/03/2018 Emergency Emergency Medicine [place], SOB (shortness of breath) (Primary Dx); Tere Banuelos MD Other chronic pain; Other chest pain; Alcohol withdrawal syndrome without complication; Subcutaneous emphysema resulting from a procedure, initial encounter; Essential hypertension, malignant; Pulmonary emphysema, unspecified emphysema type 10/21/2018 Emergency Emergency Medicine Mychal Franco Chest pain, unspecified type (Primary Dx); MD Evon SOB (shortness of breath); Hypoglycemia 10/09/2018 Emergency Emergency Medicine Florentin Sexton Alcohol withdrawal syndrome without complication (Primary Dx); MD Bernie Chronic obstructive pulmonary disease, unspecified COPD type; Alcohol abuse; Tremor due to drug withdrawal; Abrasion of left knee, initial encounter; Accident, initial encounter from Last 3 Months Immunizations Name Administration Dates Next Due Influenza Virus Vaccine 05/06/1974 Influenza Virus Vaccine Quad IM 3+ YRS 07/20/2016 Pneumococcal Polysaccharide, PPSV23 (PNEUMOVAX) 07/20/2016 Td 09/08/2013 Family History Medical History Relation Name Comments [place] (myocardial infarction) Father Relation Name Status Comments Father Social History Tobacco Use Types Packs/Day Years Used Date Current Every Day Smoker Cigarettes 1 40 Started: 1967 Smokeless Tobacco: Never Used Tobacco Cessation: Ready to Quit: No Comments: 1 Pack a day Alcohol Use Drinks/Week oz/Week Comments Yes 0 Standard drinks or equivalent 0.0 6-8 40 oz malt liquor per day Sex Assigned at Date Recorded Not on file Job Start Date Occupation Industry Not on file Not on file Not on file Travel History Travel Start Travel End No recent travel history available. Last Filed Vital Signs Vital Sign Reading Time Taken Comments Blood Pressure 152/98 11/17/2018 7:53 PM CDT Pulse 86 11/17/2018 8:25 PM CDT Temperature 37.2 C (99 F) 11/17/2018 7:53 PM CDT Respiratory Rate 18 11/17/2018 8:25 PM CDT Oxygen Saturation 93% 11/17/2018 8:25 PM CDT Inhaled Oxygen Concentration - - Weight 90.7 kg (200 lb) 11/13/2018 11:33 PM CDT Height 167.6 cm (5' 6") 07/21/2018 4:05 AM CDT Body Mass Index 32.28 07/21/2018 4:05 AM CDT Plan of Treatment Health Maintenance Due Date Last Done Comments COLONOSCOPY 10/29/2003 Zoster Recombinant Vaccine (SHINGRIX) 10/29/2003 (1 of 2) DTaP,Tdap,and Td Vaccines (1 - Tdap) 09/09/2013 09/08/2013 LUNG CANCER SCREEN: Recommended for 01/20/2018 01/20/2017, 12/21/2016, age 55-80 with 30 + pack year history 05/10/2016 Medicare Wellness Visit 2018 PNEUMOCOCCAL VACCINES 65+ (1 of 2 - 2018 07/20/2016 PCV13) INFLUENZA VACCINE (#1) 2019 07/20/2016, 05/06/1974 HEPATITIS C (HCV) SCREEN Completed 12/28/2013 Procedures Procedure Name Priority Date/Time Associated Diagnosis Comments BASIC METABOLIC PANEL Routine 11/17/2018 5:12 Results for this (NA, K, CL, CO2, PM CDT procedure are in GLUCOSE, BUN, the results CREATININE, CA) section. CBC WITH DIFFERENTIAL Routine 11/17/2018 5:51 Results for this AM CDT procedure are in the results section. MAGNESIUM Routine 11/17/2018 5:51 Results for this AM CDT procedure are in the results section. BASIC METABOLIC PANEL Routine 11/17/2018 5:51 Results for this (NA, K, CL, CO2, AM CDT procedure are in GLUCOSE, BUN, the results CREATININE, CA) section. CBC WITH DIFF Routine 11/17/2018 5:51 Results for this AM CDT procedure are in the results section. EKG-12 LEAD Routine 11/16/2018 4:17 PM CDT CBC WITH DIFFERENTIAL Routine 11/16/2018 4:54 Results for this AM CDT procedure are in the results section. MAGNESIUM Routine 11/16/2018 4:54 Results for this AM CDT procedure are in the results section. BASIC METABOLIC PANEL Routine 11/16/2018 4:54 Results for this (NA, K, CL, CO2, AM CDT procedure are in GLUCOSE, BUN, the results CREATININE, CA) section. CBC WITH DIFF Routine 11/16/2018 4:54 Results for this AM CDT procedure are in the results section. SPUTUM CULTURE Routine 11/16/2018 1:58 Results for this AM CDT procedure are in the results section. CBC WITH DIFFERENTIAL Routine 11/15/2018 4:26 Results for this AM CDT procedure are in the results section. CBC WITH DIFF Routine 11/15/2018 4:26 Results for this AM CDT procedure are in the results section. MAGNESIUM Add-on 11/14/2018 3:39 Results for this AM CDT procedure are in the results section. TROPONIN I STAT 11/14/2018 3:39 Cough Results for this AM CDT Fever, unspecified procedure are in fever cause the results section. GALV/CLC ONLY - URINE Add-on 11/14/2018 2:59 Results for this DRUG (IMMUNOASSAY) - AM CDT procedure are in COMPREHENSIVE DRUG the results SCREEN section. URINALYSIS STAT 11/14/2018 2:59 Cough Results for this AM CDT Fever, unspecified procedure are in fever cause the results section. CBC WITH DIFFERENTIAL STAT 11/14/2018 2:37 Cough Results for this AM CDT Fever, unspecified procedure are in fever cause the results section. CBC WITH DIFF STAT 11/14/2018 2:37 Cough Results for this AM CDT Fever, unspecified procedure are in fever cause the results section. XR CHEST 2 VW STAT 11/14/2018 2:01 Cough Results for this AM CDT Fever, unspecified procedure are in fever cause the results section. PROCALCITONIN Add-on 11/14/2018 1:52 Results for this AM CDT procedure are in the results section. MAGNESIUM STAT 11/14/2018 1:52 Cough Results for this AM CDT Fever, unspecified procedure are in fever cause the results section. ETHANOL STAT 11/14/2018 1:52 Cough Results for this AM CDT Fever, unspecified procedure are in fever cause the results section. COMP. METABOLIC PANEL STAT 11/14/2018 1:52 Cough Results for this (41705) AM CDT Fever, unspecified procedure are in fever cause the results section. EKG-12 LEAD STAT 11/13/2018 11:33 PM CDT EKG-12 LEAD Routine 11/13/2018 11:28 PM CDT HOSPITAL ADMISSION Routine 11/13/2018 12:01 AM CDT EMERGENCY DEPARTMENT Routine 11/13/2018 12:01 DOCUMENTS AM CDT XR CHEST 1 VW STAT 11/03/2018 10:27 SOB (shortness of Results for this PM CDT breath) procedure are in the results section. CBC WITH DIFFERENTIAL STAT 11/03/2018 10:04 SOB (shortness of Results for this PM CDT breath) procedure are in the results section. N-TERMINAL PRO-BNP STAT 11/03/2018 10:04 SOB (shortness of Results for this PM CDT breath) procedure are in the results section. LIPASE STAT 11/03/2018 10:04 SOB (shortness of Results for this PM CDT breath) procedure are in the results section. TROPONIN I STAT 11/03/2018 10:04 SOB (shortness of Results for this PM CDT breath) procedure are in the results section. COMP. METABOLIC PANEL STAT 11/03/2018 10:04 SOB (shortness of Results for this (77850) PM CDT breath) procedure are in the results section. CBC WITH DIFF STAT 11/03/2018 10:04 SOB (shortness of Results for this PM CDT breath) procedure are in the results section. EKG-12 LEAD Routine 11/03/2018 9:26 PM CDT EMERGENCY DEPARTMENT Routine 11/03/2018 12:01 DOCUMENTS AM CDT EMERGENCY SERVICES Routine 11/03/2018 12:01 AGREEMENTS AND AM CDT AUTHORIZATIONS LACTIC ACID WHOLE STAT 10/21/2018 1:15 Chest pain, Results for this BLOOD PM CDT unspecified type procedure are in SOB (shortness of the results breath) section. CT HEAD WO CONTRAST STAT 10/21/2018 11:28 Chest pain, Results for this AM CDT unspecified type procedure are in SOB (shortness of the results breath) section. LACTIC ACID WHOLE STAT 10/21/2018 10:43 Chest pain, Results for this BLOOD AM CDT unspecified type procedure are in SOB (shortness of the results breath) section. POCT GLUCOSE(AGE DUSTY 10/21/2018 10:37 SOB (shortness of Results for this >30DAYS) AM CDT breath) procedure are in Hypoglycemia the results section. GRAM POSITIVE BLOOD STAT 10/21/2018 10:18 Chest pain, Results for this PATHOGENS DNA AM CDT unspecified type procedure are in PROBE-ANAEROBIC SOB (shortness of the results breath) section. BLOOD CULTURE WORKUP STAT 10/21/2018 10:18 Chest pain, Results for this AM CDT unspecified type procedure are in SOB (shortness of the results breath) section. URINALYSIS STAT 10/21/2018 10:18 Chest pain, Results for this AM CDT unspecified type procedure are in SOB (shortness of the results breath) section. BLOOD CULTURE SCREEN STAT 10/21/2018 10:18 Chest pain, Results for this AM CDT unspecified type procedure are in SOB (shortness of the results breath) section. CBC WITH DIFFERENTIAL STAT 10/21/2018 10:17 Chest pain, Results for this AM CDT unspecified type procedure are in SOB (shortness of the results breath) section. ETHANOL STAT 10/21/2018 10:17 Chest pain, Results for this AM CDT unspecified type procedure are in SOB (shortness of the results breath) section. COMP. METABOLIC PANEL STAT 10/21/2018 10:17 Chest pain, Results for this (63263) AM CDT unspecified type procedure are in SOB (shortness of the results breath) section. CBC WITH DIFF STAT 10/21/2018 10:17 Chest pain, Results for this AM CDT unspecified type procedure are in SOB (shortness of the results breath) section. POCT GLUCOSE Routine 10/21/2018 10:06 Results for this (AUTOMATED) AM CDT procedure are in the results section. EKG-12 LEAD Routine 10/21/2018 9:58 AM CDT XR CHEST 2 VW STAT 10/21/2018 9:25 Chest pain, Results for this AM CDT unspecified type procedure are in SOB (shortness of the results breath) section. EKG-12 LEAD Routine 10/21/2018 8:48 AM CDT EMERGENCY DEPARTMENT Routine 10/21/2018 12:01 DOCUMENTS AM CDT EMERGENCY SERVICES Routine 10/21/2018 12:01 AGREEMENTS AND AM CDT AUTHORIZATIONS CBC WITH DIFFERENTIAL STAT 10/09/2018 12:27 Chronic obstructive Results for this PM CDT pulmonary disease, procedure are in unspecified COPD the results type section. Alcohol abuse Tremor due to drug withdrawal Alcohol withdrawal syndrome without complication MAGNESIUM STAT 10/09/2018 12:27 Chronic obstructive Results for this PM CDT pulmonary disease, procedure are in unspecified COPD the results type section. Alcohol abuse Tremor due to drug withdrawal Alcohol withdrawal syndrome without complication ETHANOL STAT 10/09/2018 12:27 Chronic obstructive Results for this PM CDT pulmonary disease, procedure are in unspecified COPD the results type section. Alcohol abuse Tremor due to drug withdrawal Alcohol withdrawal syndrome without complication CBC WITH DIFF STAT 10/09/2018 12:27 Chronic obstructive Results for this PM CDT pulmonary disease, procedure are in unspecified COPD the results type section. Alcohol abuse Tremor due to drug withdrawal Alcohol withdrawal syndrome without complication BASIC METABOLIC PANEL STAT 10/09/2018 12:27 Chronic obstructive Results for this (NA, K, CL, CO2, PM CDT pulmonary disease, procedure are in GLUCOSE, BUN, unspecified COPD the results CREATININE, CA) type section. Alcohol abuse Tremor due to drug withdrawal Alcohol withdrawal syndrome without complication EMERGENCY DEPARTMENT Routine 10/09/2018 12:01 DOCUMENTS AM CDT EMERGENCY SERVICES Routine 10/09/2018 12:01 AGREEMENTS AND AM CDT AUTHORIZATIONS from Last 3 Months Results BASIC METABOLIC PANEL (NA, K, CL, CO2, GLUCOSE, BUN, CREATININE, CA) (2018 5:12 PM CDT)Only the most recent of4 resultswithin the time period is included. NA 131 (L) 135 - 145 [facility] mmol/L SERVICES K 4.6 3.5 - 5.0 [facility] mmol/L SERVICES CL 92 (L) 98 - 108 mmol/L [facility] SERVICES CO2 TOTAL 32 (H) 23 - 31 mmol/L [facility] SERVICES AGAP 7 2 - 16 [facility] BUN 20 7 - 23 mg/dL [facility] GLUCOSE 177 (H) 70 - 110 mg/dL [facility] SERVICES CREATININE 0.55 (L) 0.60 - 1.25 [facility] mg/dL SERVICES CALCIUM 9.8 8.6 - 10.6 [facility] mg/dL SERVICES eGFR Calculation 149.5 mL/min/1.73m2 [facility] (Non- SERVICES Jamaican) eGFR Calculation 181.2 mL/min/1.73m2 [facility] () SERVICES Specimen Blood - VENOUS Narrative Performed At Association of Glomerular Filtration Rate (GFR) and Staging [facility] SERVICES of Kidney Disease* + + + + | GFR (mL/min/1.73 m2)| With Kidney Damage|Without Kidney Damage + + + + |>90|Stage one| Normal + + + + |60-89|Stage two| Decreased GFR + + + + |30-59|Stage three| Stage three + + + + |15-29|Stage four | Stage four + + + + |<15 (or dialysis)|Stage five | Stage five + + + + *Each stage assumes the associated GFR level has been in effect for at least three months.Stages 1 to 5, with or without kidney disease, indicate chronic kidney disease. Notes: Determination of stages one and two (with eGFR >59mL/min/1.73 m2) requires estimation of kidney damage for at least three months as defined by structural or functional abnormalities of the kidney, manifested by either: Pathological abnormalities or Markers of kidney damage (including abnormalities in the composition of the blood or urine or abnormalities in imaging tests). Performing Organization Address City/State/Zipcode Phone Number [facility] CLIA: [id number], [address] [place] [phone] [facility] CBC WITH DIFFERENTIAL (11/17/2018 5:51 AM CDT)Only the most recent of7 resultswithin the time period is included. WBC 8.88 4.20 - 10.70 [facility] 10*3/L SERVICES RBC 4.17 (L) 4.26 - 5.52 [facility] 10*6/L SERVICES HGB 13.5 12.2 - 16.4 [facility] g/dL SERVICES HCT 42.7 38.4 - 49.3 % [facility] SERVICES MCV 102.4 (H) 81.7 - 95.6 fL [facility] SERVICES MCH 32.4 26.1 - 32.7 pg [facility] SERVICES MCHC 31.6 31.2 - 35.0 [facility] g/dL SERVICES RDW-SD 52.2 (H) 38.5 - 51.6 fL [facility] SERVICES RDW-CV 13.7 12.1 - 15.4 % [facility] SERVICES PLT 223 150 - 328 [facility] 10*3/L SERVICES MPV 10.1 9.8 - 13.0 fL [facility] SERVICES NRBC/100 WBC 0.0 0.0 - 10.0 /100 [facility] WBCs SERVICES NRBC x10^3 <0.01 10*3/L [facility] SERVICES GRAN MAT (NEUT) % 74.9 % [facility] IMM GRAN % 0.60 % [facility] LYMPH % 13.0 % [facility] MONO % 10.7 % [facility] EOS % 0.3 % [facility] BASO % 0.5 % [facility] SERVICES GRAN MAT x10^3(ANC) 6.66 1.99 - 6.95 [facility] 10*3/uL SERVICES IMM GRAN x10^3 0.05 0.00 - 0.06 [facility] 10*3/uL SERVICES LYMPH x10^3 1.15 1.09 - 3.23 [facility] 10*3/uL SERVICES MONO x10^3 0.95 0.36 - 1.02 [facility] 10*3/uL SERVICES EOS x10^3 0.03 (L) 0.06 - 0.53 [facility] 10*3/uL SERVICES BASO x10^3 0.04 0.01 - 0.09 [facility] 10*3/uL SERVICES Specimen Blood - ARM, RIGHT Performing Organization Address [facility] Phone Number [facility] CLIA: [id number], [address] [place] [phone] [facility] MAGNESIUM (11/17/2018 5:51 AM CDT)Only the most recent of5 resultswithin the time period is included. MAGNESIUM 1.2 (L) 1.7 - 2.4 mg/dL [facility] SERVICES Specimen Blood - ARM, RIGHT Performing Organization Address [facility] Phone Number [facility] CLIA: [id number], [address] [place] [phone] [facility] EKG-12 LEAD (11/16/2018 4:17 PM CDT) Specimen Performing Organization Address [place] Phone Number [facility]ST Sputum Culture (11/16/2018 1:58 AM CDT) SPUTUM CULTURE 4+ Respiratory nakita [facility] Gram stain Few Gram positive cocci [facility] Gram stain Few Gram negative bacilli [facility] Gram stain Few Polymorphonuclear [facility] leukocytes SERVICES Gram stain Moderate Epithelial cells [facility] SERVICES Specimen Sputum - SPUTUM, EXPECTORATE Performing Organization Address [place] Phone Number [facility] CLIA: [id number], [address] [place] [phone] [facility] TROPONIN I (11/14/2018 3:39 AM CDT)Only the most recent of2 resultswithin the time period is included. TROPONIN I 0.014 <=0.034 ng/mL [facility] SERVICES Specimen Blood - VENOUS Narrative Performed At Equal or Less than 0.034 ng/ml---Normal [facility] Note: Cardiac troponin begins to rise 3-4 hours after the onset of ischemia. Repeat in 4-6 hours if the sample was drawn within 3-4 hours of the onset of the symptom and found normal. Between 0.035 and 0.120 ng/mL--- Borderline. Questionable myocardial injury or necrosis Note: Serial measurement may be necessary to confirm or exclude the diagnosis of myocardial injury or necrosis; Clinical correlation (symptoms, EKGs, imaging studies, and others) required; Repeat in 4-6 hours if clinically indicated. Equal or Higher than 0.121 ng/mL---Abnormal. Myocardial Injury or Necrosis Likely Biotin has been reported to cause a negative bias, interpret results relative to patient's use of biotin. Performing Organization Address [facility] Phone Number [facility] CLIA: [id number], [address] [place] [phone] [facility] URINALYSIS (11/14/2018 2:59 AM CDT)Only the most recent of2 resultswithin the time period is included. APPEARANCE Clear Clear [facility] COLOR Rosaura (A) Yellow [facility] PH 5.0 4.8 - 8.0 [facility] SP GRAVITY 1.011 1.003 - 1.030 [facility] GLU U QUAL Normal Normal [facility] BLOOD Negative Negative [facility] KETONES Negative Negative [facility] PROTEIN Negative Negative [facility] UROBILIN 4.0 mg/dL (A) Normal [facility] BILIRUBIN Negative Negative [facility] NITRITE Negative Negative [facility] LEUK CHELE Negative Negative [facility] RBC/HPF 1 0 - 3 HPF [facility] WBC/HPF 0 0 - 5 HPF [facility] BACTERIA Few (A) Negative [facility] SQ EPITH <1 <=2 HPF [facility] HYAL CAST 6 (H) <=2 LPF [facility] Specimen Urine - URINE, CLEAN CATCH Performing Organization Address [facility] Phone Number [facility] CLIA: [id number], [address] [place] [phone] [facility] DRUG SCREEN PANEL 2 URINE (11/14/2018 2:59 AM CDT) AMPHET Negative Negative [facility] SKYLA U Negative Negative [facility] BENZO U Presumptive Negative [facility] Positive (A) SERVICES Cocaine Metabolite Negative Negative [facility] METHADONE Negative Negative [facility] OPIATES Negative Negative [facility] PCP Negative Negative [facility] THC Negative Negative [facility] Specimen Urine - URINE, CLEAN CATCH Narrative Performed At Urine Drug Cutoff Ranges [facility] Cocaine: 150 ng/mL Benzodiazepines: 200 ng/mL Methadone: 300 ng/mL Amphetamine: 1,000 ng/mL Opiates: 300 ng/mL Cannabinoids:50 ng/mL Phencyclidine: 25 ng/mL Barbiturates:200 ng/mL The results are to be used only for medical (i.e., treatment) purposes. Unconfirmed screening results must not be used for non-medical purposes (e.g., employment testing, legal testing). Performing Organization Address City/State/Zipcode Phone Number [facility] CLIA: [id number], [address] [place] [address] [phone] [facility] XR CHEST 2 VW (11/14/2018 2:01 AM CDT)Only the most recent of2 resultswithin the time period is included. Specimen Impressions Performed At FINDINGS/IMPRESSION: PACS/VR/DOSE Mild vascular congestion without focal consolidation. No pleural effusion or pneumothorax. The heart size is normal. No acute osseous abnormality is identified. Shantell Lawrence MD., have reviewed this study and agree with the above report. Narrative Performed At PACS/VR/DOSE EXAM: XR CHEST 2 VW HISTORY: cough, fever COMPARISON: Chest radiograph from 11/03/2018 Procedure Note [facility], Radiant Results Inft User - 11/14/2018 7:57 AM CDT EXAM: XR CHEST 2 VW HISTORY: cough, fever COMPARISON: Chest radiograph from 11/03/2018 IMPRESSION FINDINGS/IMPRESSION: Mild vascular congestion without focal consolidation. No pleural effusion or pneumothorax. The heart size is normal. No acute osseous abnormality is identified. Chandan Lawrence MD., have reviewed this study and agree with the above report. Performing Organization Address [facility] Phone Number PACS/VR/DOSE PROCALCITONIN (11/14/2018 1:52 AM CDT) Procalcitonin 0.04 <0.07 ng/mL [facility] Specimen Blood - VENOUS Narrative Performed At INTERPRETATION OF PROCALCITONIN RESULTS IN ADULTS >=18 YEARS [facility] OF AGE Initiation and discontinuation of antibiotics on patients with suspected or confirmed Lower Respiratory Tract Infection in Adults >=18 years of age. + + + + + |Procalcitonin |Interpretation|Antibiotic |Considerations |ng/mL ||recommendation | + + + + + | <0.1 | Bacterial| Strongly| || infection very | discouraged | Overruling: || unlikely | | Clinically unstable + + + + High risk for adverse | <0.25| Bacterial| Discouraged | outcome || infection| | SEE IMPORTANT NOTE || unlikely | | + + + + + | >=0.25 | Bacterial| Encouraged| || infection| | || likely | | Consider treatment failure + + + + if levels does not decrease | >0.5 | Bacterial| Strongly| appropriately || infection very | encouraged| || likely | | + + + + + Discontinuation of antibiotics in high-acuity patients with suspected or confirmed sepsis in Adults >=18 years of age. + + + + + |Procalcitonin |Interpretation|Antibiotic |Considerations |ng/mL ||recommendation | + + + + + | <0.25| Bacterial| Strongly| || infection very | discouraged | Overruling: || unlikely | | Clinically unstable + + + + High risk for adverse | <0.5 or drop | Bacterial| Discouraged | outcome | >80% from| infection| | SEE IMPORTANT NOTE | highest PCT| unlikely | | | level|| | + + + + + | >=0.5| Bacterial| Encouraged| || infection| | || likely | | Consider treatment failure + + + + if levels does not decrease | >1.0 | Bacterial| Strongly| appropriately || infection very | encouraged| || likely | | + + + + + Percentage of drop of Procalcitonin calculation for Discontinuation of antibiotics in high-acuity patients with suspected or confirmed sepsis in Adults >=18 years of age. Procalcitonin highest{}-Procalcitonin current{} Delta Procalcitonin= _ x100% Procalcitonin current {} IMPORTANT NOTE: Procalcitonin may be elevated without bacterial infection by physiologic stress related to trauma, giles, chronic dialysis, metastatic cancer, surgery in the past seven days, malaria, some fungal infections, and some forms of vasculitis. The interpretation algorithm may not apply to patients with immunosuppression (equivalent of >10 mg of prednisone daily), HIV with CD4 cell count < 350 cells/mm3, active malignancy on systemic chemotherapy, solid organ transplant or hematopoietic stem cell transplantation, or hospital acquired pneumonia. Additionally, some clinical trials of procalcitonin have excluded patients with shock requiring vasopressor use, acute respiratory failure requiring mechanical ventilation, or those with known lung abscess/empyema. For further information please refer to: [email or web address] Performing Organization Address City/State/[facility] Phone Number [facility] CLIA: [id number], [address] [place] [address] [facility] ETHANOL (11/14/2018 1:52 AM CDT)Only the most recent of3 resultswithin the time period is included. ALCOHOL <10 mg/dL [facility] Specimen Blood - VENOUS Narrative Performed At Toxic Greater than or equal to 80 mg/dL. [facility] NOTE: Whole blood values are approximately 10% to 15% lower than serum and plasma. Performing Organization Address City/State/[facility] Phone Number [facility] CLIA: [id number], [address] [place], [place] [address] [facility] COMP. METABOLIC PANEL ([id number]) (11/14/2018 1:52 AM CDT)Only the most recent of3 resultswithin the time period is included. NA 129 (L) 135 - 145 [facility] mmol/L SERVICES K 5.1 (H)Comment: 3.5 - 5.0 [facility] Slight hemolysis mmol/L SERVICES CL 92 (L) 98 - 108 [facility] mmol/L SERVICES CO2 TOTAL 24 23 - 31 [facility] mmol/L SERVICES AGAP 13 2 - 16 [facility] SERVICES BUN 6 (L)Comment: 7 - 23 mg/dL [facility] Slight hemolysis SERVICES GLUCOSE 98 70 - 110 [facility] mg/dL SERVICES CREATININE 0.54 (L) 0.60 - 1.25 [facility] mg/dL SERVICES TOTAL BILI 2.6 (H) 0.1 - 1.1 [facility] mg/dL SERVICES CALCIUM 9.2 8.6 - 10.6 [facility] mg/dL SERVICES T PROTEIN 7.6 6.3 - 8.2 [facility] g/dL SERVICES ALBUMIN 3.9 3.5 - 5.0 [facility] g/dL SERVICES ALK PHOS 112Comment: 34 - 122 U/L [facility] Slight hemolysis SERVICES ALT(SGPT) 102 (H)Comment: 9 - 51 U/L [facility] Slight hemolysis SERVICES AST(SGOT) 201 (H)Comment: 13 - 40 U/L [facility] Slight hemolysis SERVICES eGFR Calculation 152.7 mL/min/1.73m2 [facility] (Non- SERVICES Jamaican) eGFR Calculation 185.1 mL/min/1.73m2 [facility] () SERVICES Specimen Blood - VENOUS Narrative Performed At Association of Glomerular Filtration Rate (GFR) and Staging [facility] of Kidney Disease* + + + + | GFR (mL/min/1.73 m2)| With Kidney Damage|Without Kidney Damage + + + + |>90|Stage one| Normal + + + + |60-89|Stage two| Decreased GFR + + + + |30-59|Stage three| Stage three + + + + |15-29|Stage four | Stage four + + + + |<15 (or dialysis)|Stage five | Stage five + + + + *Each stage assumes the associated GFR level has been in effect for at least three months.Stages 1 to 5, with or without kidney disease, indicate chronic kidney disease. Notes: Determination of stages one and two (with eGFR >59mL/min/1.73 m2) requires estimation of kidney damage for at least three months as defined by structural or functional abnormalities of the kidney, manifested by either: Pathological abnormalities or Markers of kidney damage (including abnormalities in the composition of the blood or urine or abnormalities in imaging tests). Performing Organization Address City/State/Zipcode Phone Number [facility] CLIA: [id number], [address] [place] [address] [phone] EKG-12 LEAD (11/13/2018 11:28 PM CDT) Specimen Performing Organization Address City/State/Zipcode Phone Number [facility] (11/13/2018 12:01 AM CDT) Specimen Performing Organization Address City/State/Zipcode Phone Number [facility] EMERGENCY DEPARTMENT DOCUMENTS (11/13/2018 12:01 AM CDT)Only the most recent of4 resultswithin the time period is included. Specimen Performing Organization Address City/State/Zipcode Phone Number [facility] XR CHEST 1 VW (11/03/2018 10:27 PM CDT) Specimen Narrative Performed At XR CHEST 1 VW PACS/VR/DOSE HISTORY: chest pain COMPARISON: Chest x-ray on 10/21/2018 FINDINGS: 1.Mild pulmonary vascular congestion. No focal consolidation. 2.No pleural effusion or pneumothorax is present. 3.The cardiomediastinal silhouette is normal. 4.No acute osseous abnormality. Shena Lawrence MD., have reviewed this study and agree with the above report. Procedure Note [facility], Radiant Results Inft User - 11/04/2018 12:10 AM CDT XR CHEST 1 VW HISTORY: chest pain COMPARISON: Chest x-ray on 10/21/2018 FINDINGS: 1. Mild pulmonary vascular congestion. No focal consolidation. 2. No pleural effusion or pneumothorax is present. 3. The cardiomediastinal silhouette is normal. 4. No acute osseous abnormality. Shnea Lawrence MD., have reviewed this study and agree with the above report. Performing Organization Address City/State/Zipcode Phone Number PACS/VR/DOSE N-TERMINAL PRO-BNP (11/03/2018 10:04 PM CDT) NT-proBNP 615 (H) <=125 pg/mL [facility] Specimen Blood - ARM, LEFT Narrative Performed At Biotin has been reported to cause a negative bias, interpret [facility] results relative to patient's use of biotin. Performing Organization Address [facility] Phone Number [facility] CLIA: [id number], [address] [place] [phone] [facility] LIPASE (11/03/2018 10:04 PM CDT) LIPASE 36 0 - 220 U/L [facility] Specimen Blood - ARM, LEFT Performing Organization Address [place]/[facility] Phone Number [facility] CLIA: [id number], [address] [place] [phone] [facility] EKG-12 LEAD (11/03/2018 9:26 PM CDT) Specimen Performing Organization Address [facility] Phone Number [facility] AGREEMENTS AND AUTHORIZATIONS (11/03/2018 12:01 AM CDT)Only the most recent of3 resultswithin the time period is included. Specimen Performing Organization Address [place]/[facility] Phone Number [facility] Lactic Acid Whole Blood (10/21/2018 1:15 PM CDT)Only the most recent of2 resultswithin the time period is included. LACTIC ACID 1.57 0.50 - 2.20 mmol/L [facility] Specimen Blood - VENOUS Performing Organization Address [place]/[facility] Phone Number [facility] CLIA: [id number], [address] [place] [phone] [facility] CT HEAD WO CONTRAST (10/21/2018 11:28 AM CDT) Specimen Impressions Performed At PACS/VR/DOSE Dilated ventricles out of proportion to the observed degree of cerebral volume loss consistent with the patient's history of normal pressure hydrocephalus. No acute intracranial abnormality. I, Danie Giron MD., have reviewed this study and agree with the above report. Narrative Performed At CT HEAD WO CONTRAST PACS/VR/DOSE HISTORY: Head trauma, headache COMPARISON: 07/03/2018 TECHNIQUE: Noncontrast CT of the brain was obtained with coronal and sagittal reconstructions. FINDINGS: The ventricles are dilated out of proportion relative to the degree of observed cerebral volume loss. No midline shift or pathologic extra axial fluid collection. The basal cisterns are unremarkable. There is no acute intracranial hemorrhage or significant mass effect. Scattered periventricular and deep white matter hypodensities are demonstrated, consistent with chronic small vessel ischemic changes. The yip-white matter differentiation is preserved. 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 The right frontal sinus is opacified. The paranasal sinuses and mastoid air cells are otherwise clear. The calvarium and central skull base are unremarkable. Procedure Note [facility], Radiant Results Inft User - 10/21/2018 1:[address] HEAD WO CONTRAST HISTORY: Head trauma, headache COMPARISON: 07/03/2018 TECHNIQUE: Noncontrast CT of the brain was obtained with coronal and sagittal reconstructions. FINDINGS: The ventricles are dilated out of proportion relative to the degree of observed cerebral volume loss. No midline shift or pathologic extra axial fluid collection. The basal cisterns are unremarkable. There is no acute intracranial hemorrhage or significant mass effect. Scattered periventricular and deep white matter hypodensities are demonstrated, consistent with chronic small vessel ischemic changes. The yip-white matter differentiation is preserved. 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 The right frontal sinus is opacified. The paranasal sinuses and mastoid air cells are otherwise clear. The calvarium and central skull base are unremarkable. IMPRESSION Dilated ventricles out of proportion to the observed degree of cerebral volume loss consistent with the patient's history of normal pressure hydrocephalus. No acute intracranial abnormality. I, Danie Giron MD., have reviewed this study and agree with the above report. Performing Organization Address City/State/Zipcode Phone Number PACS/VR/DOSE POCT GLUCOSE(AGE >30DAYS) (10/21/2018 10:37 AM CDT) POCT Glu (age>30days) 78 70 - 110 mg/dL Specimen Blood - CAPILLARY GRAM POSITIVE BLOOD PATHOGENS DNA PROBE-ANAEROBIC (10/21/2018 10:18 AM CDT) Coagulase Negative Positive (A) Negative [facility] Staphylococcus SERVICES Specimen Blood - VENOUS Narrative Performed At Coagulase negative Staphylococcus (CoNS) detected by DNA [facility] probe. CoNS often contaminate blood cultures from skin colonization. Preferred management is to repeat blood cultures, and monitor off antibiotics. Contamination is suggested by culture growth after 48 hours, or growth in single culture (i.e., one of two sets). True bacteremia is suggested by the fever, hypotension, and leukocytosis that are not explained by an alternative infection, or indwelling foreign devices that appear infected (catheters, lines, or prostheses). Consider infectious diseases consultation if differentiation of CoNS bacteremia from contamination is uncertain. If clinical context suggests true bacteremia, preferred therapy is vancomycin. Please contact the Antimicrobial Stewardship Program with questions. ASP Pager:[phone] Testing included eleven identification and three resistance marker targets. Performing Organization Address City/[facility]/Zipcode Phone Number [facility] CLIA: [id number], [address] [place] [phone] [facility] BLOOD CULTURE WORKUP (10/21/2018 10:18 AM CDT) Pathologist [facility] Blood Culture Streptococcus [facility] [employer] SERVICES Gram stain Isolated from [facility] anaerobic bottle Gram SERVICES positive cocci Specimen Blood - VENOUS Performing Organization Address City/[facility]/Zipcode Phone Number [facility] CLIA: [id number], [address] [place] [phone] [facility] BLOOD CULTURE SCREEN (10/21/2018 10:18 AM CDT) Pathologist [facility] Blood No organisms No growth [facility] Culture-Aerobic isolatedComment: SERVICES Previous preliminary verified result was Culture In Progress on 10/21/2018 at 1502 CDT Blood Culture positive, No growth [facility] Culture-Anaerobic identification to SERVICES follow (AA)Comment: Previous preliminary verified result was Culture In Progress on 10/21/2018 at 1502 CDT Specimen Blood - VENOUS Performing Organization Address City/State/Zipcode Phone Number [facility] CLIA: [id number], [address] [place], [place] [address] [phone] [facility] POCT GLUCOSE (AUTOMATED) (10/21/2018 10:06 AM CDT) POCT GLU 78 70 - 110 mg/dL [facility] Specimen Blood Performing Organization Address City/State/Zipcode Phone Number [facility] CLIA: [id number], [address] [place] [address] [phone] [facility] EKG-12 LEAD (10/21/2018 9:58 AM CDT) Specimen Performing Organization Address City/State/Zipcode Phone Number HST from Last 3 Months Insurance Payer Benefit Plan / Subscriber ID Effective Dates Phone Address Type Group MEDICARE MEDICARE PART xxxxxxxxxxx 2000-Arnaud [phone] [facility] Medicare A & B t 2 [id number] DOTTIE HASKINS [phone] (Work) [id number]
--- OUTSIDE RECORDS SUMMARY | 2019-06-24 10:51 | XMS REPORT | Summary of Care ---
:1955 Author Organization [facility] Address [address] [place] [id number] Care Team Providers Name Role Phone Pcp, Patient Does Not Have A Primary Care Provider Pcp, Patient Does Not Have A Unavailable Reason for Referral (Routine) Status Reason Specialty Diagnoses / Referred By Referred To Procedures Contact Contact New Request IM-CARDIOVASCULAR Diagnoses Alcohol withdrawal seizure with delirium Aurora Madera, DISEASE Procedures Discharge Follow-Up: Specialty Service IM-CARDIOVASCULAR DISEASE; 1 [place] [address] MRI/CAT Scan (DUSTY) Status Reason Specialty Diagnoses / Referred By Referred To Procedures Contact Contact New Request Diagnostic Diagnoses SOB (shortness of breath) Shania Maderala, Radiology Procedures CT CHEST PULMONARY [place] [address] MRI/CAT Scan (DUSTY) Status Reason Specialty Diagnoses / Referred By Referred To Procedures Contact Contact New Request Diagnostic Diagnoses SOB (shortness of breath) Aurora Madera, Radiology Procedures CT CHEST PULMONARY ANGIOGRAM [address] [place] [address] Radiology Services (Routine) Status Reason Specialty Diagnoses / Referred By Referred To Procedures Contact Contact New Request Diagnostic Diagnoses Alcohol withdrawal seizure with delirium Shania Maderala, Radiology Procedures XR CHEST 1 VW [address] [place] [address] Radiology Services (Routine) Status Reason Specialty Diagnoses / Referred By Referred To Procedures Contact Contact New Request Diagnostic Diagnoses Alcohol withdrawal seizure with delirium Carrete, Aurora, Radiology Procedures XR CHEST 1 VW [address] [place] [address] Radiology Services (Routine) Status Reason Specialty Diagnoses / Referred By Referred To Procedures Contact Contact New Request Diagnostic Diagnoses Epigastric pain Cira Cancino, Radiology Procedures US ABDOMEN LIMITED WITH DOPPLER US LIVER [address] [place] [phone] Radiology Services (Routine) Status Reason Specialty Diagnoses / Referred By Referred To Procedures Contact Contact New Request Diagnostic Diagnoses Epigastric pain Carrete, Aurora, Radiology Procedures XR KUB [address] [place] [address] Radiology Services (Routine) Status Reason Specialty Diagnoses / Referred By Referred To Procedures Contact Contact New Request Diagnostic Diagnoses Epigastric pain Carrete, [place], Radiology Procedures XR KUB [address] [place] [address] MRI/CAT Scan (STAT) Status Reason Specialty Diagnoses / Referred By Referred To Procedures Contact Contact New Request Diagnostic Diagnoses Alcohol withdrawal seizure with delirium Carrete, [place], Radiology Procedures CT HEAD WO CONTRAST [address] [place] [address] MRI/CAT Scan (STAT) Status Reason Specialty Diagnoses / Referred By Referred To Procedures Contact Contact New Request Diagnostic Diagnoses Alcohol withdrawal seizure with delirium Carrete, [place], Radiology Procedures CT HEAD WO CONTRAST [address] [place] [address] Radiology Services (DUSTY) Status Reason Specialty Diagnoses / Referred By Referred To Procedures Contact Contact New Request Diagnostic Diagnoses Shortness of breath Carrete, Aurora, Radiology Procedures XR CHEST 2 VW [address] [place] [address] Radiology Services (DUSTY) Status Reason Specialty Diagnoses / Referred By Referred To Procedures Contact Contact New Request Diagnostic Diagnoses Shortness of breath Auroar Madera, Radiology Procedures XR CHEST 2 VW [address] [place] [address] Reason for Visit Reason Comments Alcohol Problem Seizures Auth/Cert Status Reason Specialty Diagnoses / Referred By Referred To Procedures Contact Contact Emergency Medicine Ed-Emergency Dept [address] [place] [phone] Encounter Details Date Type Department Care Team Description 12/31/2018 - Hospital Encounter Medicine (SHAHEEN 10A) Florentin Sexton MD [address] [facility] [id number] [place], [place] [id number] Alcohol withdrawal 01/09/[address] [facility] Aurora Madera MD [address] [place] [address] [place] [address] delirium [phone] Allergies No Known Allergiesdocumented as of this encounter (statuses as of 01/09/2019) Medications Medication Sig Dispensed Refills Start Date End Date Status albuterol 90 Inhale 2 Puffs 8.5 g 0 01/09/2019 Active mcg/actuation every 6 (six) inhalerIndications hours as needed : COPD for Wheezing or exacerbation Shortness of Breath. foLIC acid 1 mg Take 1 tablet 30 tablet 0 01/09/2019 Active tabletIndications: by mouth daily. Tinea cruris, COPD with acute exacerbation PARoxetine 20 mg Take 1 tablet 30 tablet 0 01/09/2019 Active tabletIndications: by mouth daily. Suicidal ideation thiamine 100 mg Take 1 tablet 30 tablet 0 01/09/2019 Active tabletIndications: by mouth daily. Tinea cruris, COPD with acute exacerbation traZODONE 50 mg Take 1 tablet 30 tablet 0 01/09/2019 Active tabletIndications: by mouth at Alcohol withdrawal bedtime. seizure with delirium budesonide-formote Inhale 2 Puffs 10.2 g 0 01/09/2019 Active rol 80-4.5 2 (two) times mcg/actuation daily. inhalerIndications : COPD exacerbation aspirin 81 mg Take 1 tablet 30 tablet 0 01/10/2019 Active chewable by mouth daily. tabletIndications: Alcohol withdrawal seizure with delirium atorvastatin 20 mg Take 1 tablet 30 tablet 0 01/09/2019 Active tabletIndications: by mouth at Alcohol withdrawal bedtime. seizure with delirium furosemide 20 mg Take 1 tablet 30 tablet 0 01/09/2019 Active tabletIndications: by mouth at Alcohol withdrawal bedtime. seizure with delirium furosemide 40 mg Take 1 tablet 30 tablet 0 01/09/2019 Active tabletIndications: by mouth every Alcohol withdrawal morning. seizure with delirium metoprolol Take 0.5 30 tablet 0 01/09/2019 Active tartrate 25 mg tablets by tabletIndications: mouth 2 (two) Alcohol withdrawal times daily. seizure with delirium nicotine 7 mg/24 Apply 1 Patch 20 Patch 0 01/10/2019 Active hr to area(s) patchIndications: every 24 Alcohol withdrawal (twenty-four) seizure with hours. delirium clotrimazole 1 % Apply to 1 Tube 0 08/15/2018 01/09/2019 Discontinued topical area(s) at creamIndications: bedtime. Tinea cruris, COPD with acute exacerbation foLIC acid 1 mg Take 1 tablet 30 tablet 0 08/16/2018 01/09/2019 Discontinued tabletIndications: by mouth daily. Tinea cruris, COPD with acute exacerbation lisinopril 5 mg Take 1 tablet 30 tablet 0 08/16/2018 01/09/2019 Discontinued tabletIndications: by mouth daily. Tinea cruris, COPD with acute exacerbation thiamine 100 mg Take 1 tablet 30 tablet 0 08/16/2018 01/09/2019 Discontinued tabletIndications: by mouth daily. Tinea cruris, COPD with acute exacerbation albuterol 90 Inhale 2 Puffs 8.5 g 0 08/15/2018 01/09/2019 Discontinued mcg/actuation every 6 (six) inhalerIndications hours as needed : COPD for Wheezing or exacerbation Shortness of Breath. budesonide-formote Inhale 2 Puffs 10.2 g 0 08/15/2018 01/09/2019 Discontinued rol 80-4.5 2 (two) times mcg/actuation daily. inhalerIndications : COPD exacerbation traZODONE 100 mg Take 1 tablet 60 tablet 0 08/15/2018 01/09/2019 Discontinued tabletIndications: by mouth at Moderate episode bedtime. of recurrent major depressive disorder predniSONE 20 mg Take 2 tablets 3 tablet 0 11/17/2018 01/09/2019 Discontinued tabletIndications: by mouth daily. Tinea cruris, COPD with acute exacerbation doxycycline 100 mg Take 1 capsule 3 capsule 0 11/17/2018 01/09/2019 Discontinued capsuleIndications by mouth every : Suicidal 12 (twelve) ideation hours. lactulose 10 Take 15 mL by 90 mL 0 11/17/2018 01/09/2019 Discontinued gram/15 mL mouth 2 (two) solutionIndication times daily as s: Suicidal needed for ideation Constipation. magnesium oxide Take 800 mg by 30 tablet 2 11/18/2018 01/09/2019 Discontinued 420 mg mouth daily. TabIndications: Suicidal ideation PARoxetine 20 mg Take 1 tablet 30 tablet 2 11/18/2018 01/09/2019 Discontinued tabletIndications: by mouth daily. Suicidal ideation Polyethylene Take 1 Packet 30 Packet 1 11/18/2018 01/09/2019 Discontinued Glycol 3350 17 by mouth daily. gram powderIndications: Suicidal ideation documented as of this encounter (statuses as of 01/09/2019) Active Problems Problem Noted Date Alcohol withdrawal seizure with delirium 12/31/2018 Tachycardia 11/14/2018 HCAP (healthcare-associated pneumonia) 08/12/2018 Cough [...] C virus) HTN (hypertension) Depression EtOH dependence documented as of this encounter (statuses as of 01/09/2019) Resolved Problems Problem Noted Date Resolved Date Hypoxia 12/01/2017 12/01/2017 Altered mental status 11/27/2017 12/01/2017 Bipolar disorder 05/21/2018 documented as of this encounter (statuses as of 01/09/2019) Immunizations Name Administration Dates Next Due Influenza Virus Vaccine 05/06/1974 Influenza Virus Vaccine Quad IM 3+ YRS 07/20/2016 Pneumococcal Polysaccharide, PPSV23 (PNEUMOVAX) 07/20/2016 Td 09/08/2013 documented as of this encounter Social History Tobacco Use Types Packs/Day Years Used Date Current Every Day Smoker Cigarettes 1 40 Started: 1969 Smokeless Tobacco: Never Used Comments: 1 Pack a day Alcohol Use Drinks/Week oz/Week Comments Yes 6-8 40 oz malt liquor per day Sex Assigned at Date Recorded Not on file Job Start Date Occupation Industry Not on file Not on file Not on file Travel History Travel Start Travel End No recent travel history available. documented as of this encounter Last Filed Vital Signs Vital Sign Reading Time Taken Comments Blood Pressure 118/70 01/09/2019 3:27 PM CDT Pulse 69 01/09/2019 3:27 PM CDT Temperature 36.9 C (98.4 F) 01/09/2019 3:27 PM CDT Respiratory Rate 18 01/09/2019 3:27 PM CDT Oxygen Saturation 90% 01/09/2019 3:27 PM CDT Inhaled Oxygen Concentration - - Weight 88 kg (194 lb) 01/09/2019 5:56 AM CDT bedscale Height 172.7 cm (5' 8") 12/31/2018 9:43 PM CDT Body Mass Index 29.5 12/31/2018 9:43 PM CDT documented in this encounter Discharge Instructions AttachmentsThe following attachments cannot be sent through Care Everywhere.Alcohol Abuse, Life After Combat: Coping with ([facility])Alcohol Overdose ([facility])Addiction, Addiction ([facility])Drug Abuse ([facility])documented in this encounter Progress Notes Adela Fairbanks SW - 01/09/2019 3:48 PM CDTCare Management Discharge Disposition Note (DCDN) 5-2-1 Interventions: Clear discharge plan;Teach back 5-2-1 Providers: Children'S Author/Manager Training 5-2-1 Patient Capacity Improvements: Other;Avoidance of adverse events/ readmission Discharge Plan for ongoing care and services: Intermediate Facility (SNF) Discharge location(s): SNF location: [facility], [address], [place] () [phone] (f) [phone] [id number] Patient choice completed for referred services: Discussed with patient/patients family involved in decision making: Yes( patient provided verbal approval to CC & SW) Patient or family caregiver understands, and agrees with discharge plan. Community resources/referrals made or provided to patient: Resources/Referrals: Transportation: Wheelchair Van(via SNF (2L O2 requested for transport)) Nursing informed of discharge plan: Yes Name of RN informed: Estimated discharge date: 01/09/19 Time: 1630 Additional Information: PASRR in packet for [facility], faxed dc order and discharge summary to [facility], packet on unit CM/THIERRY Name & Contact number: Adela THIERRY Fairbanks Ph. [phone] The following information has been provided to the facility noted above: reason for the patient discharge or transfer; patients physical and psychosocial status; summary of care, treatment, servicesprovided to patient; and the patient progress toward goals. Frandy Rooney RN - 01/09/2019 11:27 AM CDTCase Management Note: Pt with reputation for frequent AMA's, per prior [facility] notes. Patient clinicals were sent to [facility] in attempt to identify a SNF for post acute care. Blayne is to review. called [facility] in attempt to identify the factor involved in his leaving. [facility] states despite prior documentation that they have never admitted this patient. Call placed to Cori GUADARRAMA with outpatient care management team, left message. The [facility] [address] [facility] [address] [facility] [place], [address] [place] [address] fax [phone] CHARLOTTE White, RN, ACM-RN Care Management [facility] [email or web address] Douglas Olivera PTA - 01/09/2019 10:40 AM CDTPhysical Therapy Progress Note: Recommendations: -Primary Discharge Plan: custodial facility Equipment recommendations: defer to facility PAIN: -Pain Location: left leg -Pain rating before treatment: 7, After treatment: 7 -Pain Management: Nursing Notified PRECAUTIONS: Weight Bearing Precaution: WBAT General Precautions: General, Fall and Lines/Tubes oxygen: Nasal canula Bracing/Cast present or required:N/A S: Patient agreeable to working with PT. Patient states "I have to use the restroom. It's that lasiks" O: Patient met Sitting edge of bed. Patient seen for the following: Bed mobility: -Supine to sit Modified Independent - analyzed patient's safety technique during supine to sit Transfers: - -Sit to stand: SBA/Setup using Rolling Walker -Stand to sit: SBA/Setup using Rolling Walker - Static/dynamic standing balance: Fair - cued patient in hand placement during sit<->stand Gait: - Assisted patient with ambulation as follows: 10 feet x 2 and 300 feet using Rolling Walker and SBA/Setup -cued patient in paced gait Patient provided with preferred teaching of verbal information on functional mobility training. Shows readiness to learn. Verbal instruction teaching provided. Individual verbalizes understanding of teaching provided. After session, patient Sitting on edge of bed and call acharya provided. A: Patient maintaining consistent progress with gait. Patient tolerated session well. Patient progressing toward goals well. P: PT will progress gait. Megan Galvan PTA Pager # [phone] Sup PT Marquez Coleman Total Timed Tx Codes in Minutes: 24 Min Total Treatment Time in Minutes: 24 Min Ibrahima Clark MD - 01/08/2019 2:28 PM CDT Cardiology Progress Note Service: Steve Reason for admission: Alcohol Withdrawal Reason for consult: TTE demonstrated reduced EF and new WMA compared to TTE in July. Please eval for ischemic work-up. Subjective: States that he is doing about the same. Denies any SOB, CP or palpitations. Physical Examination: Temp: [36.7 C (98 F)-37 C (98.6 F)] Pulse: [74-95] Resp: [16-21] BP: (104-149)/(70-98) MAP (mmHg): [112] Intake/Output Summary (Last 24 hours) at 01/08/2019 1429 Last data filed at 01/08/2019 1034 Gross per 24 hour Intake 458 ml Output 1750 ml Net -1292 ml General: alert and oriented x 4 (person, place, date/time and situation); no apparent distress Lungs: clear to auscultation bilaterally Cardio: S1, S2 normal; no murmurs, rubs or gallops, regular rate and rhythm Labs/Imaging/Pathology - Independently reviewed Recent Labs 11/16/18 0454 11/17/18 0551 12/31/18 1310 01/01/19 0601/02/19 0456 WBC 8.65 8.88 7.75 8.01 7.91 HGB 13.3 13.5 14.8 14.3 13.3 HCT 42.2 42.7 44.8 45.0 43.0 MCV 102.9* 102.4* 99.1* 102.5* 103.6* PLT 231 223 106* 74* 74* Recent Labs 01/01/19 0628 01/02/19 0456 01/03/19 0325 01/07/19 0243 01/08/19 0521 NA 136 135 137 138 139 K 4.1 4.2 4.7 4.2 4.1 CA 7.9* 7.9* 7.9* 9.6 9.7 CL 99 103 101 94* 96* BUN 7 10 13 12 12 CREAT 0.55* 0.64 0.67 0.56* 0.63 GLU 116* 76 115* 105 114* TCO2 32* 29 32* 41* 40* MG 2.7* 1.7 1.6* 1.1* 1.7 Recent Labs 02/04/18215403/18/18223806/28/18 0603 07/03/18203808/29/18 1423 11/14/18 0152 12/31/18 1310 01/01/19 0628 01/02/19 0456 01/03/19 0325 ALB 3.7 4.0 < > 3.2* 3.2* < > 4.3 < > 3.9 3.5 2.8* 2.6* 2.7* TPRO 6.8 7.3 < > 6.8 6.6 < > 8.0 < > 7.6 7.0 6.2* 5.9* 6.1* BILIT 4.2* 1.4* < > 1.1 0.9 < > 2.1* < > 2.6* 2.4* 6.3* 5.1* 3.5* BILIUNCON 0.5 0.3 -- 0.4 0.1 -- 0.9 -- -- -- -- -- -- BILICONJ 2.0* 0.0 -- 0.0 0.0 -- 0.0 -- -- -- -- -- -- ALT 117* 43 < > 94* 36 < > 15 < > 102* 36 39 34 51 AST 161* 66* < > 69* 26 < > 59* < > 201* 80* 95* 81* 151 * ALKPHOS 73 91 < > 59 67 < > 82 < > 112 129* 107 84 86 < >=values in this interval not displayed. Recent Labs 04/16/18 2126 06/19/18 1346 07/20/18 2227 08/29/18 1423 PTINR 1.1 1.0 1.1 1.0 PTPAT 12.1 10.9 11.8 11.5 APTTPAT -- 30 29 -- TTE on 01/06 Left Ventricle The left ventricle is normal in size. LV mass index 117 g/m2 and RWT 0.47. There is mild concentric left ventricular hypertrophy. Left ventricular systolic function is mild to moderately reduced. Ejection Fraction=40-45%. Diastolic dysfunction. There are regional wall motion abnormalities as specified. Mid to distal septal severe hypokinesis. Basal to mid inferior severe hypokinesis. Right Ventricle The right ventricle is mild to moderately dilated. There is normal right ventricular wall thickness. Atria The left atrial size is normal. Right atrial size is normal. Mitral Valve The mitral valve is normal. Tricuspid Valve The tricuspid valve is normal. Estimated RA pressure is 0-5 mmHg. Right ventricular systolic pressure is 25-30 mmHg. Aortic Valve Mild calcification. The aortic valve is trileaflet. The aortic valve opens well. Pulmonic Valve The pulmonic valve is not well visualized. Great Vessels The aortic root is normal size. Pericardium/Pleural Therer is a small pericardial effusion. There are no echocardiographic indications of cardiac tamponade. Interpretation Summary A two-dimensional transthoracic echocardiogram with M-mode and Doppler was performed. The study was technically adequate. Compared to prior study, changes are noted. There is mild concentric left ventricular hypertrophy. Left ventricular systolic function is mild to moderately reduced. Ejection Fraction=40-45%. Diastolic dysfunction. There are regional wall motion abnormalities as specified. ASSESSMENT/PLAN Matt Bertrand is a 63 year old male admitted to the hospital with: Acute CHF Exacerbations Possible diaphragm Attenuation vs inferior MS Patient findings of TTE and prior MIBI showed a possible previous inferior MS. Also at this point the patient platelets are low, with current alcohol abuse, and homeless status, makes stenting not And the post management not indicated at this point. Will obtain repeat echo in 1 mo as outpatient and discuss possibility of RHC if alcohol use has decreased and platelet count has improved. Optimal medical management is indicated at this time. Recommendations: -Please start propanolol 20mg PO BID -c/w aspirin 81 mg PO QD -c/w lipitor 20 mg PO QD -c/w lasix 40 mg PO QD -strict I/Os, daily weights -Please schedule patient for a outpatient cardiology clinic visit in 1 m to repeat echo and evaluation for Heart Cath -Please encourage alcohol and cocaine cessation -Keep K >4, Mg >2 Cardiology will be signing off at this point. Thank you for your consult. Discussed with MD Steve Melchor MD Team, PGY1 Pager Number [phone] END OF DAILY PROGRESS NOTE HPI CURRENT MEDICATIONS - reviewed. Current Facility-Administered Medications Medication Dose Route Frequency Last Rate Last Dose metoprolol tartrate (LOPRESSOR) half tablet 12.5 mg 12.5 mg Oral BID atorvastatin (LIPITOR) tablet 20 mg 20 mg Oral QHS 20 mg at 09/04/19 2027 furosemide (LASIX) tablet 40 mg 40 mg Oral DAILY 40 mg at 01/08/19 0849 guaiFENesin 100 mg/5 mL solution 100 mg 100 mg Oral Q4HPRN aspirin chewable tablet 81 mg 81 mg Oral DAILY 81 mg at 01/08/19 0849 traZODONE (DESYREL) tablet 50 mg 50 mg Oral QHS 50 mg at 01/07/19 2027 nicotine (NICODERM) 7 mg/24 hr patch 1 Patch 1 Patch Topical Q24H 1 Patch at 01/08/19 0533 oxazepam (SERAX) capsule 15 mg 15 mg Oral Q4HPRN 15 mg at 01/06/19 2026 ipratropium (ATROVENT) 0.02 % nebulizer solution 0.5 mg 0.5 mg Inhalation TID 0.5 mg at 01/08/19 1303 pantoprazole (PROTONIX) EC tablet 40 mg 40 mg Oral DAILY 40 mg at 0850 sodium chloride 7% (HYPER-KIKA) nebulizer solution 4 mL 4 mL Inhalation BID 4 mL at 01/08/19 0623 acetaminophen (TYLENOL) tablet 650 mg 650 mg Oral Q6HPRN foLIC acid (FOLATE) tablet 1 mg 1 mg Oral DAILY 1 mg at 01/08/19 0849 heparin injection 5,000 Units 5,000 Units Subcutaneous Q12H 5,000 Units at 01/08/19 0852 levalbuterol (XOPENEX) nebulizer solution 0.31 mg 0.31 mg Inhalation TID 0.31 mg at 01/08/19 1303 PARoxetine (PAXIL) tablet 20 mg 20 mg Oral DAILY 20 mg at 01/08/19 0850 thiamine (VITAMIN B1) tablet 100 mg 100 mg Oral DAILY 100 mg at 01/08/19 0849 Associated attestation - Cielo Ariza - 01/08/2019 8:52 PM CDT[address] discussion with Dr Gonzalez, I examined this patient. I also read the note by Dr Reynoso and agree with resident's note as written. Douglas Garnett, GANG SAW OPERATOR - 01/08/2019 11:51 AM CDTPhysical Therapy Progress Note: Recommendations: -Primary Discharge Plan: custodial facility Equipment recommendations: defer to facility PAIN: -Pain Location: left leg -Pain rating before treatment: 8, After treatment: 8 -Pain Management: Nursing Notified PRECAUTIONS: Weight Bearing Precaution: WBAT General Precautions: General, Fall and Lines/Tubes oxygen: Nasal canula Bracing/Cast present or required:N/A S: Patient agreeable to working with PT. O: Patient met Sitting edge of bed. Patient seen for the following: Bed mobility: - Sit to supine: Modified independent - analyzed patient's safety technique when returning to supine position Transfers: - -Sit to stand: SBA/Setup using Rolling Walker -Stand to sit: SBA/Setup using Rolling Walker - Static/dynamic standing balance: Fair - cued patient in hand placement during sit<->stand Gait: - Assisted patient with ambulation as follows: 300 feet using Rolling Walker and CGA, SBA/Setup -cued patient in paced gait Patient provided with preferred teaching of verbal information on functional mobility training. Shows readiness to learn. Verbal instruction teaching provided. Individual verbalizes understanding of teaching provided. After session, patient Semi reclined in bed and call acharya provided. A: Patient tolerated session well. Patient progressing toward goals well. P: PT will progress gait. Megan Galvan PTA Pager # [phone] Sup PT Marquez Coleman Total Timed Tx Codes in Minutes: 24 Min Total Treatment Time in Minutes: 24 Min Sahra Diaz MD - 01/06/2019 5:25 PM CDT Letitia MCKEON TEAM Progress Note Date of Service: 01/06/2019 23:25 Chief Complaint: Alcohol withdrawal / AECOPD 24-HOUR EVENTS: - Lasix 40 mg PO - Vitals and O2 requirement stable, desats off oxygen -PT/OT rec SNF on discharge SUBJECTIVE: Patient much more alert this morning. Denies pain, dyspnea while on O2 PHYSICAL EXAM: Intake/Output Summary (Last 24 hours) at 01/06/2019 2325 Last data filed at 01/06/2019 2306 Gross per 24 hour Intake 568 ml Output 5400 ml Net -4832 ml General: AOx2, voice and awareness much improved, no visible tremulousness HEENT: PER, sluggishly reactive to light similar to previous exams, EOMI Lungs: basilar coarse crackles Cardio: RRR, heart sounds muffled Abdomen: soft; non-tender; mildly-distended Extremities: no edema LABS/IMAGING - reviewed, pertinent results as below: NT-proBNP 25,200, ECHO pending CT MD negative, although limited examination due to patient moving ASSESSMENT/PLAN Matt Bertrand is a 63 year old male admitted to the hospital with: Acute congestive heart failure Continued desaturation off oxygen most likely due to effects of CHF exacerbation. Will continue to diurese. - NT-proBNP 25,200, elevated from 615 in November. - TTE pending - Lasix 40 mg PO today Chronic alcohol use disorder Macrocytosis Patient completed Serax taper, initial electrolyte derangements resolved with repletion and thiaminesupplement. - Folic acid and thiamine daily - CBC, BMP, Mg daily Acute hypoxic respiratory failure COPD Exacerbation Fever - afebrile 48 hrs 40-pack year smoking history Patient treated for COPD exacerbation noted due to increased SOB and productive cough. Now with lessWOB and weaned to 1L NC but persistently hypoxic off oxygen. - Xopenex nebulizer and atrovent TID - Wean O2 for sat >90 - Guaifenesin Alcohol use disorder Elevated LFTs HCV, chronic, untreated No acute concerns Major depressive disorder with history of suicidal ideation Previously with MDD requiring hospitalization to inpatient psych due to SI. Currently denies any SI/HI and has been noncompliant with Paxil while homeless. - Restart Paxil 20mg Prophylaxis: DVT - heparin Stress Ulcer: Protonix Code Status: presumed FULL Sahra Noel MD Internal Medicine, PGY1 [employer] Pager [phone] HOSPITAL COURSE Matt Bertrand is a 63 year old male with a PMHx of alcohol use disorder, cocaine use, COPD, TYRELL, HTN,HCV, and MDD. Patient was recently released from [facility] inpatient psychiatry for suicidal ideation. He reports drinking a bottle of whiskey or gin daily with last drink yesterday, tremulous on arrival with witnessed seizure during transport. Patient reports baseline shortness of breath and coughwhich is worse now. Admitted to floor and treated for delirium tremens and alcohol withdrawal with Serax taper. Concurrent COPD exacerbation treated with prednisone, LAMA/LABA nebulized treatments, Zosyn due to Unasyn shortage, pulmonary toilet and supplemental oxygen. CT PE negative, although limitedexamination due to movement. PT/OT evaluating patient. Patient still requiring oxygen, will continuediuresis. CURRENT MEDICATIONS - reviewed. Current Facility-Administered Medications Medication Dose Route Frequency Last Rate Last Dose furosemide (LASIX) tablet 40 mg 40 mg Oral DAILY 40 mg at 01/06/19 1511 traZODONE (DESYREL) tablet 50 mg 50 mg Oral QHS 50 mg at 01/06/192025 nicotine (NICODERM) 7 mg/24 hr patch 1 Patch 1 Patch Topical Q24H 1 Patch at 01/06/19 100 oxazepam (SERAX) capsule 15 mg 15 mg Oral Q4HPRN 15 mg at 01/06/192025 guaiFENesin 100 mg/5 mL solution 100 mg 100 mg Oral Q4H 100 mg at 2025 ipratropium (ATROVENT) 0.02 % nebulizer solution 0.5 mg 0.5 mg Inhalation TID 0.5 mg at 01/06/192207 pantoprazole (PROTONIX) EC tablet 40 mg 40 mg Oral DAILY 40 mg at 100 sodium chloride 7% (HYPER-KIKA) nebulizer solution 4 mL 4 mL Inhalation BID 4 mL at 01/06/192210 acetaminophen (TYLENOL) tablet 650 mg 650 mg Oral Q6HPRN foLIC acid (FOLATE) tablet 1 mg 1 mg Oral DAILY 1 mg at 01/06/19 100 heparin injection 5,000 Units 5,000 Units Subcutaneous Q12H 5,000 Units at 01/06/192026 levalbuterol (XOPENEX) nebulizer solution 0.31 mg 0.31 mg Inhalation TID Stopped at 01/06/192207 PARoxetine (PAXIL) tablet 20 mg 20 mg Oral DAILY 20 mg at 01/06/191004 thiamine (VITAMIN B1) tablet 100 mg 100 mg Oral DAILY 100 mg at 01/06/19 100 Associated attestation - Aurora Madera MD - 01/06/2019 11:48 PM CDTI personally examined the patient on 01/06/[address] Noel's resident note with the following addition(s): Respiratory status continues to improve with diuresis but still requiring oxygen. Will switch to PO lasix. Echo shows reduced EF, diastolic dysfunction and new WMA which are new compared to echo in July. Will consult cardiology for ischemic workup. I actively participated in the decision-making process. Please see the resident's note for additional details. Aurora Madera MD Director Apparel Department of Internal Medicine O: C: F: Sahra Noel MD - 01/05/2019 8:59 AM CDT [facility] [employer] Progress Note Date of Service: 01/05/2019 08:59 Chief Complaint: Alcohol withdrawal / AECOPD 24-HOUR EVENTS: - Lasix 20 mg IV - Vitals and O2 requirement stable -PT/OT recs pending SUBJECTIVE: Patient much more alert this morning. Denies pain, dyspnea while on O2 PHYSICAL EXAM: Intake/Output Summary (Last 24 hours) at 01/05/2019 0859 Last data filed at 01/05/2019 0400 Gross per 24 hour Intake 768 ml Output 1445 ml Net -677 ml General: AOx2, voice and awareness much improved, no visible tremulousness HEENT: PER, sluggishly reactive to light similar to previous exams, EOMI Lungs: basilar coarse crackles Cardio: RRR, heart sounds muffled Abdomen: soft; non-tender; mildly-distended Extremities: no edema LABS/IMAGING - reviewed, pertinent results as below: NT-proBNP 25,200, ECHO pending CT MD negative, although limited examination due to patient moving ASSESSMENT/PLAN Matt Bertrand is a 63 year old male admitted to the hospital with: Alcohol Withdrawal Cocaine withdrawal Macrocytosis Patient completed Serax taper, initial electrolyte derangements resolved with repletion and thiaminesupplement. - PRN Serax - Folic acid and thiamine daily - CBC, BMP, Mg daily Acute congestive heart failure vs severe pulmonary hypertension Patient desats when oxygen removed to 70s. He also had a few episodes of tachycardia and hypotension. Review of x-rays from this and previous admission ( 11/2018) revealed significant change in cardiac siloette, now with cardiomegaly. Will discontinue fluids and diurese as needed. CT PE negative, but significant motion artifact. - NT-proBNP 25,200, elevated from 615 in November. - TTE pending - Continue Lasix 20 mg IV daily Acute hypoxic respiratory failure COPD Exacerbation Fever - afebrile 48 hrs 40-pack year smoking history Patient treated for COPD exacerbation noted due to increased SOB and productive cough. Now with lessWOB and weaned to 2L NC. Zosyn substituted for Unasyn due to hospital shortage. - Discontinue Zosyn - Discontinue prednisone, received 5 days therapy - Xopenex nebulizer and atrovent TID - Wean O2 for sat >90 - Guaifenesin Alcohol use disorder Elevated LFTs HCV, chronic, untreated No acute concerns Major depressive disorder with history of suicidal ideation Previously with MDD requiring hospitalization to inpatient psych due to SI. Currently denies any SI/HI and has been noncompliant with Paxil while homeless. - Restart Paxil 20mg Prophylaxis: DVT - heparin Stress Ulcer: Protonix Code Status: presumed FULL Sahra Noel MD Internal Medicine, PGY1 [employer] Pager #[phone] HOSPITAL COURSE Matt Bertrand is a 63 year old male with a PMHx of alcohol use disorder, cocaine use, COPD, TYRELL, HTN,HCV, and MDD. Patient was recently released from [facility] inpatient psychiatry for suicidal ideation. He reports drinking a bottle of whiskey or gin daily with last drink yesterday, tremulous on arrival with witnessed seizure during transport. Patient reports baseline shortness of breath and coughwhich is worse now. Admitted to floor and treated for delirium tremens and alcohol withdrawal with Serax taper. Concurrent COPD exacerbation treated with prednisone, LAMA/LABA nebulized treatments, Zosyn due to Unasyn shortage, pulmonary toilet and supplemental oxygen. CT PE negative, although limitedexamination due to movement. PT/OT evaluating patient. Patient still requiring oxygen, will continuediuresis. CURRENT MEDICATIONS - reviewed. Current Facility-Administered Medications Medication Dose Route Frequency Last Rate Last Dose nicotine (NICODERM) 7 mg/24 hr patch 1 Patch 1 Patch Topical Q24H 1 Patch at 01/05/19 0608 oxazepam (SERAX) capsule 15 mg 15 mg Oral Q4HPRN 15 mg at 01/05/19 0605 guaiFENesin 100 mg/5 mL solution 100 mg 100 mg Oral Q4H 100 mg at 0853 ipratropium (ATROVENT) 0.02 % nebulizer solution 0.5 mg 0.5 mg Inhalation TID 0.5 mg at 01/05/19 0710 pantoprazole (PROTONIX) EC tablet 40 mg 40 mg Oral DAILY 40 mg at 0853 piperacillin-tazobactam (ZOSYN) 4.5 g in NaCl 0.9% (NS) 100 mL MINI-BAG 4.5 g IV Piggyback Q6H ABX 4.5 g at 01/05/19 0854 predniSONE (DELTASONE) tablet 40 mg 40 mg Oral Q24H 40 mg at 01/05/19 0853 sodium chloride 7% (HYPER-KIKA) nebulizer solution 4 mL 4 mL Inhalation BID 4 mL at 01/05/19 0711 acetaminophen (TYLENOL) tablet 650 mg 650 mg Oral Q6HPRN foLIC acid (FOLATE) tablet 1 mg 1 mg Oral DAILY 1 mg at 01/05/19 0853 heparin injection 5,000 Units 5,000 Units Subcutaneous Q12H 5,000 Units at 01/05/19 0854 levalbuterol (XOPENEX) nebulizer solution 0.31 mg 0.31 mg Inhalation TID 0.31 mg at 01/05/19 0710 PARoxetine (PAXIL) tablet 20 mg 20 mg Oral DAILY 20 mg at 01/05/19 0853 thiamine (VITAMIN B1) tablet 100 mg 100 mg Oral DAILY 100 mg at 01/04/19 0849 Associated attestation - Aurora Madera MD - 01/05/2019 10:05 PM CDTI personally examined the patient on 01/05/[address] Noel's resident note as written. I actively participated in the decision-making process. Please see the resident's note for additional details. Aurora Madera MD Director Apparel Department of Internal Medicine O: C: F: Rayshawn Aldana MD - 01/04/2019 6:47 AM CDT [facility] Progress Note Date of Service: 01/04/2019 12:21 Chief Complaint: Alcohol withdrawal / AECOPD 24-HOUR EVENTS: -NAEO -BP 130s/90s -Pulse 100s-90s -Afebrile for 48 hours -Weaned down on O2 to 2L NC -CT negative for PE, although difficult to read due to patient moving -PT/OT recs pending -Lasix 20mg x1 SUBJECTIVE: Very agitated this AM because patient wanted to get up and go to the bathroom, however he has not been seen by PT, bedside commode ordered. Denies dyspnea on O2. PHYSICAL EXAM: Intake/Output Summary (Last 24 hours) at 01/04/2019 1221 Last data filed at 01/04/2019 1127 Gross per 24 hour Intake 336 ml Output 2000 ml Net -1664 ml General: AOx4, no visible tremulousness,agitated HEENT: PER, sluggishly reactive to light similar to previous exams, EOMI Lungs: basilar crackles, diffuse transmitted upper airway sounds Cardio: RRR, heart sounds muffled Abdomen: soft; non-tender; mildly-distended Extremities: no edema LABS/IMAGING - reviewed, pertinent results as below: NT-proBNP 25,200 Bili downtrendin.1 -> 3.5 AST 34 -> 51 ALT 81 -> 151 RUQ U/S showed no changes of cirrhosis, only hepatomegaly CT MD negative, although limited examination due to patient moving ASSESSMENT/PLAN Matt Bertrand is a 63 year old male admitted to the hospital with: Alcohol Withdrawal Cocaine withdrawal Macrocytosis Patient is stable on Serax taper, initial electrolyte derangements resolved with repletion and thiamine supplement. - Serax taper with PRN serax - Folic acid and thiamine daily - CBC, BMP, Mg daily Acute congestive heart failure vs severe pulmonary hypertension vs PE Patient desats when oxygen removed to 70s. He also had a few episodes of tachycardia and hypotension. Review of x-rays from this and previous admission ( 11/2018) revealed significant change in cardiac siloette, now with cardiomegaly. Will discontinue fluids and diurese as needed. - NT-proBNP 25,200, elevated from 615 in November. - EKG - TTE pending - CT PE protocol; negative although patient moving during exam - Lasix 20mg 3x Acute hypoxic respiratory failure COPD Exacerbation Fever - afebrile 48 hrs 40-pack year smoking history Patient treated for COPD exacerbation noted due to increased SOB and productive cough. Now with lessWOB and weaned to 2L NC. Zosyn substituted for Unasyn due to hospital shortage. - Zosyn 4.5 g Q6H - Prednisone 40mg qd - Xopenex nebulizer and atrovent TID - Wean O2 for sat >90 - Guaifenesin - VBG 1x Alcohol use disorder Elevated LFTs HCV, chronic, untreated No acute concerns Major depressive disorder with history of suicidal ideation Previously with MDD requiring hospitalization to inpatient psych due to SI. Currently denies any SI/HI and has been noncompliant with Paxil while homeless. - Restart Paxil 20mg Prophylaxis: DVT - heparin Stress Ulcer: Protonix Code Status: presumed FULL Rayshawn Aldana MD Internal Medicine, PGY-1 [employer] Pager# [phone] HOSPITAL COURSE Matt Bertrand is a 63 year old male with a PMHx of alcohol use disorder, cocaine use, COPD, TYRELL, HTN,HCV, and MDD. Patient was recently released from [facility] inpatient psychiatry for suicidal ideation. He reports drinking a bottle of whiskey or gin daily with last drink yesterday, tremulous on arrival with witnessed seizure during transport. Patient reports baseline shortness of breath and coughwhich is worse now. Admitted to floor and treated for delirium tremens and alcohol withdrawal with Serax taper. Concurrent COPD exacerbation treated with prednisone, LAMA/LABA nebulized treatments, Zosyn due to Unasyn shortage, pulmonary toilet and supplemental oxygen. CT PE negative, although limitedexamination due to movement. PT/OT evaluating patient. CURRENT MEDICATIONS - reviewed. Current Facility-Administered Medications Medication Dose Route Frequency Last Rate Last Dose furosemide (LASIX) injection 20 mg 20 mg Slow IV Push ONCE nicotine (NICODERM) 7 mg/24 hr patch 1 Patch 1 Patch Topical Q24H 1 Patch at 01/04/19 0827 oxazepam (SERAX) capsule 15 mg 15 mg Oral Q4HPRN 15 mg at 01/04/19 0435 guaiFENesin 100 mg/5 mL solution 100 mg 100 mg Oral Q4H 100 mg at 0849 ipratropium (ATROVENT) 0.02 % nebulizer solution 0.5 mg 0.5 mg Inhalation TID 0.5 mg at 01/04/19 0624 pantoprazole (PROTONIX) EC tablet 40 mg 40 mg Oral DAILY 40 mg at 0849 piperacillin-tazobactam (ZOSYN) 4.5 g in NaCl 0.9% (NS) 100 mL MINI-BAG 4.5 g IV Piggyback Q6H ABX 4.5 g at 01/04/19 0849 predniSONE (DELTASONE) tablet 40 mg 40 mg Oral Q24H 40 mg at 01/04/19 0849 sodium chloride 7% (HYPER-KIKA) nebulizer solution 4 mL 4 mL Inhalation BID 4 mL at 01/04/19 0625 acetaminophen (TYLENOL) tablet 650 mg 650 mg Oral Q6HPRN foLIC acid (FOLATE) tablet 1 mg 1 mg Oral DAILY 1 mg at 01/04/19 0849 heparin injection 5,000 Units 5,000 Units Subcutaneous Q12H 5,000 Units at 01/04/19 0850 levalbuterol (XOPENEX) nebulizer solution 0.31 mg 0.31 mg Inhalation TID 0.31 mg at 01/04/19 0624 PARoxetine (PAXIL) tablet 20 mg 20 mg Oral DAILY 20 mg at 01/04/19 0849 thiamine (VITAMIN B1) tablet 100 mg 100 mg Oral DAILY 100 mg at 01/04/19 0849 Associated attestation - Aurora Madera MD - 01/04/2019 11:29 PM CDTI personally examined the patient on 01/04/[address] Aldana's resident note with the following addition(s): Pt with improvement mentation today compared to previous exams. Reports feelingsomewhat better but having crampy abdominal pain. Had normal BM per sitter today. Reports urinary incontience and unsteady gait when drinking alcohol and during withdrawals but otherwise able to ambulate. Uses wheelchair to carry his things and pushes it around himself. Will have PT assess. Pt has been weaned on supplemental oxygen since receiving diuretics. CT PE was non-diagnostic but less concern for PE now given rapid improvement in respiratory status. Will continue zosyn for one more day. I actively participated in the decision-making process. Please see the resident's note for additional details. Aurora Madera MD Director Apparel Department of Internal Medicine O: C: F: Sahra Noel MD - 01/03/2019 4:23 PM CDT [facility] Progress Note Date of Service: 01/03/2019 16:23 Chief Complaint: Alcohol withdrawal / AECOPD 24-HOUR EVENTS: - NAEO SUBJECTIVE: - No dyspnea on oxygen, patient feels better today PHYSICAL EXAM: Temp: [36.2 C (97.2 F)-37.4 C (99.4 F)] Pulse: [94-135] Resp: [18-34] BP: (99-136)/(72-86) Intake/Output Summary (Last 24 hours) at 01/03/2019 1623 Last data filed at 01/03/2019 1438 Gross per 24 hour Intake 300 ml Output 1050 ml Net -750 ml General: AOx2, no visible tremulousness, more talkative than previous exams HEENT: PER, sluggishly reactive to light similar to previous exams, EOMI Lungs: basilar crackles, diffuse transmitted upper airway sounds Cardio: RRR, heart sounds muffled Abdomen: soft; non-tender; mildly-distended Extremities: no edema LABS/IMAGING - reviewed, pertinent results as below: NT-proBNP 25,200 Bili downtrendin.1 -> 3.5 AST 34 -> 51 ALT 81 -> 151 RUQ U/S showed no changes of cirrhosis, only hepatomegaly ASSESSMENT/PLAN Thomas Pedro is a 63 year old male admitted to the hospital with: Alcohol Withdrawal Cocaine withdrawal Macrocytosis Patient is stable on Serax taper, initial electrolyte derangements resolved with repletion and thiamine supplement. - Serax taper with PRN serax - Folic acid and thiamine daily - CBC, BMP, Mg daily. Acute congestive heart failure vs severe pulmonary hypertension vs PE Patient desats when oxygen removed to 70s. He also had a few episodes of tachycardia and hypotensionovernight. Review of x-rays from this and previous admission (11/2018) revealed significant change incardiac siloette, now with cardiomegaly. Will discontinue fluids and diurese as needed. NT-proBNP 25,200, elevated from 615 in November. - EKG - TTE - D dimer- follow up CT PE protocol if positive - Lasix 20mg 1x Acute hypoxic respiratory failure COPD Exacerbation Fever - afebrile 24 hrs 40-pack year smoking history Patient treated for COPD exacerbation noted due to increased SOB and productive cough. Now with lessWOB and weaned to 5L NC. Zosyn substituted for Unasyn due to hospital shortage. - Zosyn 4.5 g Q6H - Prednisone 40mg qd - Xopenex nebulizer and atrovent TID - Wean O2 for sat >90 - guaifenesin -VBG 1x Alcohol use disorder Elevated LFTs HCV, chronic, untreated No acute concerns Major depressive disorder with history of suicidal ideation Previously with MDD requiring hospitalization to inpatient psych due to SI. Currently denies any SI/HI and has been noncompliant with Paxil while homeless. - Restart Paxil 20mg Prophylaxis: DVT - heparin Stress Ulcer: Protonix Code Status: presumed FULL Francois Hernandez, MS4 I personally examined the patient on 01/03/2019 and have verified the medical student documentation and findings, including the history, physical exam, and medical decision making and made edits and additions as necessary. Additionally , I have personally performed or re-performed the physical exam and medical decision making activities of this patient's evaluation and management service. Sahra Noel MD Internal Medicine, PGY1 [employer] Pager #[phone] HOSPITAL COURSE Matt Bertrand is a 63 year old male with a PMHx of alcohol use disorder, cocaine use, COPD, TYRELL, HTN,HCV, and MDD. Patient was recently released from [facility] inpatient psychiatry for suicidal ideation. He reports drinking a bottle of whiskey or gin daily with last drink yesterday, tremulous on arrival with witnessed seizure during transport. Patient reports baseline shortness of breath and coughwhich is worse now. Admitted to floor and treated for delirium tremens and alcohol withdrawal with Serax taper. Concurrent COPD exacerbation treated with prednisone, LAMA/LABA nebulized treatments, Zosyn due to Unasyn shortage, pulmonary toilet and supplemental oxygen. CURRENT MEDICATIONS - reviewed. Current Facility-Administered Medications Medication Dose Route Frequency Last Rate Last Dose oxazepam (SERAX) capsule 15 mg 15 mg Oral Q4HPRN 15 mg at 01/03/19 0013 guaiFENesin 100 mg/5 mL solution 100 mg 100 mg Oral Q4H 100 mg at 1200 ipratropium (ATROVENT) 0.02 % nebulizer solution 0.5 mg 0.5 mg Inhalation TID 0.5 mg at 01/03/19 1409 pantoprazole (PROTONIX) EC tablet 40 mg 40 mg Oral DAILY 40 mg at 0920 piperacillin-tazobactam (ZOSYN) 4.5 g in NaCl 0.9% (NS) 100 mL MINI-BAG 4.5 g IV Piggyback Q6H ABX 4.5 g at 01/03/19 1426 predniSONE (DELTASONE) tablet 40 mg 40 mg Oral Q24H 40 mg at 01/03/19 1039 sodium chloride 7% (HYPER-KIKA) nebulizer solution 4 mL 4 mL Inhalation BID 4 mL at 01/03/19 0611 acetaminophen (TYLENOL) tablet 650 mg 650 mg Oral Q6HPRN foLIC acid (FOLATE) tablet 1 mg 1 mg Oral DAILY 1 mg at 01/03/19 1039 heparin injection 5,000 Units 5,000 Units Subcutaneous Q12H levalbuterol (XOPENEX) nebulizer solution 0.31 mg 0.31 mg Inhalation TID 0.31 mg at 01/02/191999 PARoxetine (PAXIL) tablet 20 mg 20 mg Oral DAILY 20 mg at 01/03/19 1039 thiamine (VITAMIN B1) tablet 100 mg 100 mg Oral DAILY 100 mg at 01/03/19 0920 Associated attestation - Aurora Madera MD - 01/04/2019 3:19 PM CDTI personally examined the patient on 01/03/[address] Noel's resident note with thefollowing addition(s): Pt is a little more awake today, although still disoriented. Completed seraxtaper. CT thorax ordered to rule out PE give supplemental oxygen demand. Will consult RT to assistwith pulmonary toilet. I actively participated in the decision-making process. Please see the resident's note for additional details. Aurora Madera MD Director Apparel Department of Internal Medicine O: C: F: Chris Blackwood RT - 01/02/2019 8:15 PM CDTI spoke with patient about CPAP therapy, although he understands and replies, I do not believe this patient will tolerate CPAP; nasal mask or full face. When I entered patient's room, SpO2 was 70% RA because patient continuously takes off nasal cannula. I administered breathing treatment via aerosol mask, and patient takes mask off, although I explained to him that is similar to CPAP mask. Sahra Diaz MD - 2018 4:42 PM CDT [facility] Progress Note Date of Service: 01/02/2019 20:19 Chief Complaint: Alcohol withdrawal / AECOPD 24-HOUR EVENTS: - elevated NT-proBNP 25,200 up from 615 two months ago SUBJECTIVE: - No dyspnea on oxygen, patient feels better today PHYSICAL EXAM: Temp: [36.4 C (97.5 F)-37.6 C (99.6 F)] Pulse: [110-118] Resp: [20-22] BP: (121-133)/(74-96) Intake/Output Summary (Last 24 hours) at 01/02/20192018 Last data filed at 01/02/2019 0507 Gross per 24 hour Intake 1120 ml Output 100 ml Net 1020 ml General: AOx3, no visible tremulousness, but patient hot, slightly sweaty, with high energy and agitate HEENT: PERRL, EOMI Lungs: diffuse rhonchi and wheezes, basilar crackles Cardio: RRR, heart sounds muffled Abdomen: soft; non-tender; mildly-distended Extremities: no edema LABS/IMAGING - reviewed, pertinent results as below: NT-proBNP 25,200 ASSESSMENT/PLAN Thomas Pedro is a 63 year old male admitted to the hospital with: Alcohol Withdrawal Cocaine withdrawal Macrocytosis Patient is stable on Serax taper, initial electrolyte derangements resolved with repletion and thiamine supplement. - Serax taper with PRN serax - Folic acid and thiamine daily - CBC, BMP, Mg daily. Acute congestive heart failure vs severe pulmonary hypertension NT-proBNP 25,200, elevated from 615 in November. - EKG - TTE Acute hypoxic respiratory failure COPD Exacerbation Fever - afebrile 24 hrs 40-pack year smoking history Patient treated for COPD exacerbation noted due to increased SOB and productive cough, responding well to therapy. Now with less WOB and weaned to 6L NC. Zosyn substituted for Unasyn due to hospital shortage. - Zosyn 4.5 g Q6H - Prednisone 40mg qd - Xopenex nebulizer and atrovent TID - Wean O2 for sat >90 - guaifenesin Alcohol use disorder Elevated LFTs HCV, chronic, untreated No acute concerns Major depressive disorder with history of suicidal ideation Previously with MDD requiring hospitalization to inpatient psych due to SI. Currently denies any SI/HI and has been noncompliant with Paxil while homeless. - Restart Paxil 20mg Prophylaxis: DVT - heparin Stress Ulcer: Protonix Code Status: presumed FULL Sahra Noel MD Internal Medicine, PGY1 [employer] Pager #[phone] HOSPITAL COURSE Matt Bertrand is a 63 year old male with a PMHx of alcohol use disorder, cocaine use, COPD, TYRELL, HTN,HCV, and MDD. Patient was recently released from [facility] inpatient psychiatry for suicidal ideation. He reports drinking a bottle of whiskey or gin daily with last drink yesterday, tremulous on arrival with witnessed seizure during transport. Patient reports baseline shortness of breath and coughwhich is worse now. Admitted to floor and treated for delirium tremens and alcohol withdrawal with Serax taper. Concurrent COPD exacerbation treated with prednisone, LAMA/LABA nebulized treatments, Zosyn due to Unasyn shortage, pulmonary toilet and supplemental oxygen. CURRENT MEDICATIONS - reviewed. Current Facility-Administered Medications Medication Dose Route Frequency Last Rate Last Dose oxazepam (SERAX) capsule 15 mg 15 mg Oral Q4HPRN 15 mg at 01/02/19 1647 guaiFENesin 100 mg/5 mL solution 100 mg 100 mg Oral Q4H 100 mg at 1650 ipratropium (ATROVENT) 0.02 % nebulizer solution 0.5 mg 0.5 mg Inhalation TID 0.5 mg at 01/02/192002 oxazepam (SERAX) capsule 30 mg 30 mg Oral Q12H pantoprazole (PROTONIX) EC tablet 40 mg 40 mg Oral DAILY 40 mg at 0913 piperacillin-tazobactam (ZOSYN) 4.5 g in NaCl 0.9% (NS) 100 mL MINI-BAG 4.5 g IV Piggyback Q6H ABX 4.5 g at 01/02/19 1824 predniSONE (DELTASONE) tablet 40 mg 40 mg Oral Q24H 40 mg at 01/02/19 0122 sodium chloride 7% (HYPER-KIKA) nebulizer solution 4 mL 4 mL Inhalation BID 4 mL at 01/02/19 0714 acetaminophen (TYLENOL) tablet 650 mg 650 mg Oral Q6HPRN foLIC acid (FOLATE) tablet 1 mg 1 mg Oral DAILY 1 mg at 01/02/19 0913 heparin injection 5,000 Units 5,000 Units Subcutaneous Q12H 5,000 Units at 01/02/19 0912 levalbuterol (XOPENEX) nebulizer solution 0.31 mg 0.31 mg Inhalation TID 0.31 mg at 01/02/191999 PARoxetine (PAXIL) tablet 20 mg 20 mg Oral DAILY 20 mg at 01/02/19 0910 thiamine (VITAMIN B1) tablet 100 mg 100 mg Oral DAILY 100 mg at 01/02/19 0800 Associated attestation - Aurora Madera MD - 01/04/2019 3:11 PM CDTI personally examined the patient on and agree with Dr. Noel's resident note as written. I actively participated in the decision-making process. Please see the resident's note for additional details. Aurora Madera MD Director Apparel Department of Internal Medicine O: C: F: Sarahi Mosqueda RN - 01/02/2019 3:35 PM CDTCare Management Note Pt not likely to DC over the weekend, patient on serax taper with COPD excerebration. CM will f/u on Saturday/Saturday Tanvi Mosqueda RN, BSN Care Coordinator 3: 38 PM Sarahi Marlow RN - 01/02/2019 3:16 PM CDTCare Management Note CM received call from [facility] [phone], patient denied. patient has been admitted many times to [facility] an always go AMA. CM will continue to send referrals for placement Tanvi Mosqueda RN, BSN Loin Trimmer Sarahi Marlow RN - 01/02/2019 12:01 PM CDTCare Management Note CM received call from [facility] patient denied- patient keeps going AMA while a resident at [place]. CM sent referral to [address] [address] , called [facility] [phone] CM will f/u Tanvi Mosqueda RN, BSN Care Coordinator 12: 07 PM Sarahi Marlow RN - 01/02/2019 9:54 AM CDTCare Management Note CM spoke with patient today, patient is will to go to SNF he suggested [address] PH: [phone] F: [phone] Referral faxed to [facility], called [facility] [phone]. Tanvi Mosqueda RN, BSN Care Coordinator 10: 00 AM Rich Perdue MD - 01/01/2019 6:43 AM CDT [facility]AN[facility] TEAM PGY-3 Progress Note Date of Service: 01/01/2019 17:56 Chief Complaint: Alcohol withdrawal / AECOPD 24-HOUR EVENTS: - NAEO SUBJECTIVE: Patient is AOAx2 place and self. It it difficult to understand because has slurred speech, reports that he is breathing better and feels good. Denies N/V, tachycardia PHYSICAL EXAM: Temp: [36.3 C (97.3 F)-38.4 C (101.1 F)] Heart Rate (monitor): [123-128] Pulse: [107-132] Resp: [16-29] BP: (114-145)/(88-109) MAP (mmHg): [115] Intake/Output Summary (Last 24 hours) at 01/01/2019 1756 Last data filed at 01/01/2019 1355 Gross per 24 hour Intake 700 ml Output Net 700 ml General: alert and oriented x 4 (person, place, date/time and situation); no apparent distress HEENT: pupils equal, round, reactive to light; extraocular movements intact; Lungs: clear to auscultation bilaterally Cardio: S1, S2 normal; no murmurs, rubs or gallops Abdomen: soft; non-tender; non-distended; Extremities: no clubbing, cyanosis, or edema; LABS/IMAGING - reviewed, pertinent results as below: Recent Labs 11/15/18 0426 11/16/18 0454 11/17/18 0551 12/31/18 1310 01/01/19 0628 WBC 9.93 8.65 8.88 7.75 8.01 HGB 13.3 13.3 13.5 14.8 14.3 HCT 40.6 42.2 42.7 44.8 45.0 MCV 100.7* 102.9* 102.4* 99.1* 102.5* PLT 232 231 223 106* 74* Recent Labs 11/14/18 0339 11/16/18 0454 11/17/18 0551 11/17/18 1712 12/31/18 1310 01/01/19 0628 NA -- 136 134* 131* 133* 136 K -- 3.9 4.3 4.6 3.7 4.1 CA -- 9.3 9.8 9.8 8.1* 7.9* CL -- 97* 97* 92* 95* 99 BUN -- 13 16 20 3* 7 CREAT -- 0.57* 0.46* 0.55* 0.62 0.55* GLU -- 117* 126* 177* 142* 116* TCO2 -- 32* 31 32* 19* 32* MG 2.9* 1.3* 1.2* -- 1.2* 2.7* Recent Labs 02/04/18215403/18/18223806/28/18 0603 07/03/18 2039 08/29/18 1423 10/21/18 1017 11/03/18 2204 11/14/18 0152 12/31/18 1310 01/01/19 0628 ALB 3.7 4.0 < > 3.2* 3.2* < > 4.3 3.7 3.6 3.9 3.5 2.8* TPRO 6.8 7.3 < > 6.8 6.6 < > 8.0 7.2 7.3 7.6 7.0 6.2* BILIT 4.2* 1.4* < > 1.1 0.9 < > 2.1* 1.1 2.1* 2.6* 2.4* 6.3* BILIUNCON 0.5 0.3 -- 0.4 0.1 -- 0.9 -- -- -- -- -- BILICONJ 2.0* 0.0 -- 0.0 0.0 -- 0.0 -- -- -- -- -- ALT 117* 43 < > 94* 36 < > 15 58* 29 102* 36 39 AST 161* 66* < > 69* 26 < > 59* 96* 55* 201* 80* 95* ALKPHOS 73 91 < > 59 67 < > 82 91 126* 112 129* 107 < >=values in this interval not displayed. Recent Labs 04/16/18212506/19/18 1346 07/20/18222608/29/18 1423 PTINR 1.1 1.0 1.1 1.0 PTPAT 12.1 10.9 11.8 11.5 APTTPAT -- 30 29 -- Hospital Encounter on 12/31/18 CT HEAD WO CONTRAST Narrative * * * * * * * * ORIGINAL REPORT * * * * * * * * HISTORY:Altered mental status (AMS), unclear cause TECHNIQUE: Noncontrast head CT was performed. COMPARISON:None. FINDINGS: Evaluation is degraded due to motion artifact. The ventricular system is diffusely enlarged, out of portion to the degree of volume loss. This is consistent with a communicating hydrocephalus. There is no midline shift. The basal cisterns are preserved. No large vascular territory infarction, intracranial hemorrhage or mass effect is seen. The extracranial tissues demonstrate no acute findings. Chronic fracture deformity of the right inferior orbital wall is seen. Impression Diffuse enlargement of the ventricular system is noted, consistent with a communicating hydrocephalus. These findings are nonspecific and can be seen with NPH amongst other etiologies. Clinical correlation is suggested. No acute intracranial hemorrhage or mass effect is identified. XR CHEST 2 VW Narrative EXAM: XR CHEST 2 VW HISTORY: SOB, O2 requirement, hx of COPD COMPARISON: None Impression FINDINGS/IMPRESSION: 1. Patchy opacities in both lung bases are concerning for an infectious process or aspiration. No pneumothorax or pleural effusion. 2. The cardiomediastinal silhouette is normal in size. Aortic arch calcifications are present. 3. No acute osseous abnormalities. I, Shena Orta MD., have reviewed this study and agree with the above report. ASSESSMENT/PLAN Thomas Pedro is a 63 year old male admitted to the hospital with: ETOH Withdrawal Seizure Lactic Acidosis, resolved High anion gap metabolic acidosis Hypovolemic hyponatremia Hypomagnesemia Macrocytosis Polysubstance use (ETOH, cocaine) Possible NPH? Comments: patient has been improving after serax taper and eating. - Serax taper with PRN serax - Replete Mg >2, K>4 given PVCs and tachycardia - Folic acid and thiamine daily - NS 100cc/hr - CBC, BMP, Mg daily. Repeat lactic acid until normal Acute hypoxic respiratory failure COPD Exacerbation 2/2 ? Aspiration pneumonia Fever 40-pack year smoking history Pt CXR consistent with infection at the beginning we started as COPD exacerbation with no antibiotics however patient developed fever and CXR are consistent with infection. Since patient alco - Wean O2 for sat >90 - Xopenex nebulizer and atrovent TID to avoid worsening tachycardia - Prednisone 40mg qd - Unasyn 1.5 g q6h is on national shortage zosyn used as alternative - guaifenesin Chronic ETOH Use Abnormal LFTs Untreated Hepatitis C Abnormal LFTs likely due to alcohol use and improved from previously. No cirrhosis seen on previous CT abd/pelvis 04/2018 - Trend LFTs - Follow-up HCV PCR. - Consider RUQ US Major depressive disorder with history of suicidal ideation Previously with MDD requiring hospitalization to inpatient psych due to SI. Currently denies any SI/HI and has been noncompliant with Paxil while homeless. - Restart Paxil 20mg per psych recs Pain: Not an active issue Prophylaxis: DVT - heparin Stress Ulcer: Protonix Code Status: presumed FULL Rich Mccoy MD, PhD PGY-3 Internal Medicine Doctor# [id number] Page: [phone] END OF DAILY PROGRESS NOTE HOSPITAL COURSE Matt Bertrand is a 63 year old male with a PMHx of chronic ETOH abuse, history of polysubstance abuse(cocaine), HTN, untreated HCV, COPD, possible NPH, and MDD with history of SI requiring inpatient psych presenting after witnessed ETOH withdrawal seizure. Patient was recently released from [facility] inpatient psychiatry for suicidal ideation. He reports chronic history of ETOH abuse and drinks a bottle of whiskey or gin daily with last drink yesterday. Since his last drink, he reports feeling tremulous and anxious. He has been hospitalized for ETOH withdrawal frequently in the past and reports prior seizures/hallucinations with withdrawal. He currently denies SI/HI or auditory/ visual hallucinations. Patient reports baseline shortness of breath and cough and denies any episodes of vomiting or aspiration. He was brought to ED after he was witnessed to have a seizure and had another in transport by EMS described as tonic clonic seizure with left gaze deviation. Upon arrival to ED, he was hypertensive 160/107, HR in 130s, sat 90s on 4L NC and noted to be diaphoretic and tremulous. He received 2mg Ativan, 4mg Versed, and 75mg Librium as well as IVF and was transferred to the floor for further care. CURRENT MEDICATIONS - reviewed. Current Facility-Administered Medications Medication Dose Route Frequency Last Rate Last Dose ampicillin-sulbactam (UNASYN) 1.5 g in NaCl 0.9% (NS) 50 mL MINI-BAG 1.5 g IV Piggyback Q6H ABX guaiFENesin 100 mg/5 mL solution 100 mg 100 mg Oral Q4H ipratropium (ATROVENT) 0.02 % nebulizer solution 0.5 mg 0.5 mg Inhalation TID 0.5 mg at 01/01/19 1359 oxazepam (SERAX) capsule 30 mg 30 mg Oral Q6H 30 mg at 01/01/19 1138 Followed by [START ON 01/02/2019] oxazepam (SERAX) capsule 30 mg 30 mg Oral Q8H Followed by [START ON 01/02/2019] oxazepam (SERAX) capsule 30 mg 30 mg Oral Q12H pantoprazole (PROTONIX) EC tablet 40 mg 40 mg Oral DAILY 40 mg at 0933 predniSONE (DELTASONE) tablet 40 mg 40 mg Oral Q24H 40 mg at 01/01/19 0621 sodium chloride 7% (HYPER-KIKA) nebulizer solution 4 mL 4 mL Inhalation BID 4 mL at 01/01/19 0645 acetaminophen (TYLENOL) tablet 650 mg 650 mg Oral Q6HPRN foLIC acid (FOLATE) tablet 1 mg 1 mg Oral DAILY 1 mg at 01/01/19 0933 heparin injection 5,000 Units 5,000 Units Subcutaneous Q12H Stopped at 0800 levalbuterol (XOPENEX) nebulizer solution 0.31 mg 0.31 mg Inhalation TID Stopped at 01/01/19 0650 NaCl 0.9% (NS) IV infusion 1,000 mL 1,000 mL IV Infusion CONTINUOUS 100 mL/ hr at 01/01/19 1510 1,000 mL at 01/01/19 1510 oxazepam (SERAX) capsule 15 mg 15 mg Oral Q4HPRN 15 mg at 12/31/18 2205 PARoxetine (PAXIL) tablet 20 mg 20 mg Oral DAILY 20 mg at 01/01/19 1138 thiamine (VITAMIN B1) tablet 100 mg 100 mg Oral DAILY 100 mg at 01/01/19 0933 Associated attestation - Aurora Madera MD - 01/02/2019 7:09 AM CDTI personally examined the patient on 01/01/[address] Mccoy's resident note with the following addition(s): Pt reports chest congestion and cough on rounds, coarse breath sounds on exam. Spiked fever in the afternoon, concern for possible aspiration given CXR findings (although procal is negative) . Will cover empirically with Zosyn. Continuing serax taper for alcohol withdrawal. I actively participated in the decision-making process. Please see the resident's note for additional details. Aurora Madera MD Director Apparel Department of Internal Medicine O: C: F: documented in this encounter Plan of Treatment Name Type Priority Associated Diagnoses Order Schedule BLOOD CULTURE LAB Routine ONCE for 1 Occurrences SCREEN starting 01/01/2019 until 01/01/2019 EKG-12 LEAD ROUTINE HEART STATION Routine ONCE for 1 Occurrences starting 01/01/2019 until 01/01/2019 EKG-12 LEAD ROUTINE HEART STATION Routine ONCE for 1 Occurrences starting 01/02/2019 until 01/02/2019 Acute Care Arterial LAB Routine ONCE for 1 Occurrences Blood Gas. starting 01/02/2019 until 01/02/2019 Health Maintenance Due Date Last Done Comments [...] 05/06/1974 HEPATITIS C (HCV) SCREEN Completed 12/28/2013 documented as of this encounter Procedures Procedure Name Priority Date/Time Associated Comments Diagnosis BASIC METABOLIC PANEL Routine 01/09/2019 6:23 Results for this (NA, K, CL, CO2, AM CDT procedure are in GLUCOSE, BUN, the results CREATININE, CA) section. MAGNESIUM Routine 01/09/2019 6:23 Results for this AM CDT procedure are in the results section. EXTRA TUBE LAV Routine 01/08/2019 5:21 AM CDT BASIC METABOLIC PANEL Routine 01/08/2019 5:21 Results for this (NA, K, CL, CO2, AM CDT procedure are in GLUCOSE, BUN, the results CREATININE, CA) section. MAGNESIUM Routine 01/08/2019 5:21 Results for this AM CDT procedure are in the results section. GLYCOSYLATED Routine 01/07/2019 2:43 Results for this HEMOGLOBIN (A1C) AM CDT procedure are in the results section. LIPID PANEL Routine 01/07/2019 2:43 Results for this (47628)(TOTAL AM CDT procedure are in CHOLESTEROL, the results TRIGLYCERIDES, HDL) section. BASIC METABOLIC PANEL Routine 01/07/2019 2:43 Results for this (NA, K, CL, CO2, AM CDT procedure are in GLUCOSE, BUN, the results CREATININE, CA) section. MAGNESIUM Routine 01/07/2019 2:43 Results for this AM CDT procedure are in the results section. ECHO ROUTINE W/DOPPLER Routine 01/06/2019 2:02 Acute on chronic COLOR PM CDT congestive heart failure, unspecified heart failure type CT CHEST PULMONARY DUSTY 01/03/2019 7:21 SOB (shortness of Results for this ANGIOGRAM PM CDT breath) procedure are in the results section. ACUTE CARE VENOUS Routine 01/03/2019 3:26 Results for this BLOOD GAS PM CDT procedure are in the results section. D-DIMER Routine 01/03/2019 12:36 Results for this PM CDT procedure are in the results section. COMP. METABOLIC PANEL Routine 01/03/2019 3:25 Results for this (51526) AM CDT procedure are in the results section. MAGNESIUM Routine 01/03/2019 3:25 Results for this AM CDT procedure are in the results section. XR CHEST 1 VW Routine 01/03/2019 1:27 Alcohol withdrawal Results for this AM CDT seizure with procedure are in delirium the results section. US ABDOMEN LIMITED Routine 01/02/2019 10:36 Epigastric pain Results for this WITH DOPPLER PM CDT procedure are in the results section. EKG-12 LEAD Routine 01/02/2019 4:43 PM CDT N-TERMINAL PRO-BNP Add-on 01/02/2019 4:56 Results for this AM CDT procedure are in the results section. PROFILE / HEMOGRAM Routine 01/02/2019 4:56 Results for this AM CDT procedure are in the results section. COMP. METABOLIC PANEL Routine 01/02/2019 4:56 Results for this (70754) AM CDT procedure are in the results section. MAGNESIUM Routine 01/02/2019 4:56 Results for this AM CDT procedure are in the results section. XR KUB Routine 01/01/2019 8:40 Epigastric pain Results for this PM CDT procedure are in the results section. BLOOD CULTURE SCREEN Routine 01/01/2019 6:31 Results for this PM CDT procedure are in the results section. CBC WITH DIFFERENTIAL Routine 01/01/2019 6:28 Results for this AM CDT procedure are in the results section. LACTIC ACID WHOLE STAT 01/01/2019 6:28 Results for this BLOOD AM CDT procedure are in the results section. HCV BY PCR Routine 01/01/2019 6:28 Results for this AM CDT procedure are in the results section. CBC WITH DIFF Routine 01/01/2019 6:28 Results for this AM CDT procedure are in the results section. COMP. METABOLIC PANEL Routine 01/01/2019 6:28 Results for this (53390) AM CDT procedure are in the results section. MAGNESIUM Routine 01/01/2019 6:28 Results for this AM CDT procedure are in the results section. CT HEAD WO CONTRAST STAT 12/31/2018 9:10 Alcohol withdrawal Results for this PM CDT seizure with procedure are in delirium the results section. URINALYSIS Add-on 12/31/2018 8:15 Results for this PM CDT procedure are in the results section. GALV/CLC ONLY - URINE Routine 12/31/2018 8:15 Results for this DRUG (IMMUNOASSAY) - PM CDT procedure are in COMPREHENSIVE DRUG the results SCREEN section. GALV/CLC ONLY - URINE STAT 12/31/2018 8:15 Alcohol withdrawal Results for this DRUG (IMMUNOASSAY) - 4 PM CDT seizure with procedure are in ER PANEL delirium the results section. LACTIC ACID WHOLE STAT 12/31/2018 7:56 Results for this BLOOD PM CDT procedure are in the results section. XR CHEST 2 VW DUSTY 12/31/2018 7:41 Shortness of breath Results for this PM CDT procedure are in the results section. LACTIC ACID WHOLE STAT 12/31/2018 3:54 Alcohol withdrawal Results for this BLOOD PM CDT seizure with procedure are in delirium the results section. CBC WITH DIFFERENTIAL STAT 12/31/2018 1:10 Alcohol withdrawal Results for this PM CDT seizure with procedure are in delirium the results section. PROCALCITONIN Add-on 12/31/2018 1:10 Results for this PM CDT procedure are in the results section. LACTIC ACID WHOLE STAT 12/31/2018 1:10 Alcohol withdrawal Results for this BLOOD PM CDT seizure with procedure are in delirium the results section. CBC WITH DIFF STAT 12/31/2018 1:10 Alcohol withdrawal Results for this PM CDT seizure with procedure are in delirium the results section. ETHANOL STAT 12/31/2018 1:10 Alcohol withdrawal Results for this PM CDT seizure with procedure are in delirium the results section. COMP. METABOLIC PANEL STAT 12/31/2018 1:10 Alcohol withdrawal Results for this (48257) PM CDT seizure with procedure are in delirium the results section. MAGNESIUM Add-on 12/31/2018 1:10 Results for this PM CDT procedure are in the results section. LIPASE STAT 12/31/2018 1:10 Alcohol withdrawal Results for this PM CDT seizure with procedure are in delirium the results section. PHOSPHORUS Add-on 12/31/2018 1:10 Results for this PM CDT procedure are in the results section. EKG-12 LEAD STAT 12/31/2018 12:58 PM CDT documented in this encounter Results MAGNESIUM (01/09/2019 6:23 AM CDT) MAGNESIUM 1.5 (L) 1.7 - 2.4 mg/dL [facility] Specimen Blood - ARM, RIGHT Performing Organization Address City/State/Zipcode Phone Number [facility] CLIA: [id number], [address] [place] [id number] [facility] BASIC METABOLIC PANEL (NA, K, CL, CO2, GLUCOSE, BUN, CREATININE, CA) (2018 6:23 AM CDT) NA 138 135 - 145 [facility] mmol/L SERVICES K 3.8 3.5 - 5.0 [facility] mmol/L SERVICES CL 95 (L) 98 - 108 mmol/L [facility] CO2 TOTAL 39 (H) 23 - 31 mmol/L [facility] AGAP 4 2 - 16 [facility] BUN 13 7 - 23 mg/dL [facility] GLUCOSE 123 (H) 70 - 110 mg/dL [facility] CREATININE 0.56 (L) 0.60 - 1.25 [facility] mg/dL SERVICES CALCIUM 9.6 8.6 - 10.6 [facility] mg/dL SERVICES eGFR Calculation 146.4 mL/min/1.73m2 [facility] (Non- SERVICES Spanish) eGFR Calculation 177.5 mL/min/1.73m2 [facility] () SERVICES Specimen Blood - ARM, RIGHT Narrative Performed At Association of Glomerular Filtration Rate (GFR) and Staging [facility] of Kidney Disease* + + [...] abnormalities in imaging tests). Performing Organization Address City/[facility]/Zipcode Phone Number [facility] CLIA: [id number], [address] [place] [address] [facility] EXTRA TUBE LAV (01/08/2019 5:21 AM CDT) Specimen Blood Performing Organization Address City/[facility] Phone Number [facility] CLIA: [id number], [address] [place] [phone] [facility] BASIC METABOLIC PANEL (NA, K, CL, CO2, GLUCOSE, BUN, CREATININE, CA) (2018 5:21 AM CDT) NA 139 135 - 145 [facility] mmol/L SERVICES K 4.1 3.5 - 5.0 [facility] mmol/L SERVICES CL 96 (L) 98 - 108 mmol/L [facility] CO2 TOTAL 40 (H) 23 - 31 mmol/L [facility] AGAP 3 2 - 16 [facility] BUN 12 7 - 23 mg/dL [facility] GLUCOSE 114 (H) 70 - 110 mg/dL [facility] CREATININE 0.63 0.60 - 1.25 [facility] mg/dL SERVICES CALCIUM 9.7 8.6 - 10.6 [facility] mg/dL SERVICES eGFR Calculation 127.8 mL/min/1.73m2 [facility] (Non- SERVICES Spanish) eGFR Calculation 154.9 mL/min/1.73m2 [facility] () SERVICES Specimen Blood - ARM, LEFT Narrative Performed At Association of Glomerular Filtration Rate (GFR) and Staging [facility] of Kidney Disease* + + [...] abnormalities in imaging tests). Performing Organization Address City/[facility] Phone Number [facility] CLIA: [id number], [address] [place] [phone] [facility] MAGNESIUM (01/08/2019 5:21 AM CDT) [facility] Signature MAGNESIUM 1.7 1.7 - 2.4 mg/dL [facility] Specimen Blood - ARM, LEFT Performing Organization Address [facility] Phone Number [facility] CLIA: [id number], [address] [place] [phone] [facility] GLYCOSYLATED HEMOGLOBIN (A1C) (01/07/2019 2:43 AM CDT) HGB A1C 5.0 4.0 - 6.0 % [facility] Specimen Blood - HAND, LEFT Performing Organization Address [facility] Hospitalcofl Phone Number [facility] CLIA: [id number], [address] [place] [address] [facility] LIPID PANEL ([id number])(TOTAL CHOLESTEROL, TRIGLYCERIDES, HDL) (01/07/2019 2:43 AM CDT) CHOL 156 120 - 200 mg/dL [facility] HDL 36 (L) >40 mg/dL [facility] HDLC RATIO 4.3 <=5.0 [facility] TRIG 126 30 - 170 mg/dL [facility] LDL CHOL 95 <=160 mg/dL [facility] VLDL 25 5 - 60 mg/dL [facility] Specimen Blood - HAND, LEFT Performing Organization Address [facility] Phone Number [facility] CLIA: [id number], [address] [place] [address] [facility] MAGNESIUM (01/07/2019 2:43 AM CDT) MAGNESIUM 1.1 (L) 1.7 - 2.4 mg/dL [facility] Specimen Blood - HAND, LEFT Performing Organization Address [facility] Phone Number [facility] CLIA: [id number], [address] [place] [phone] [facility] BASIC METABOLIC PANEL (NA, K, CL, CO2, GLUCOSE, BUN, CREATININE, CA) (2018 2:43 AM CDT) NA 138 135 - 145 [facility] mmol/L SERVICES K 4.2 3.5 - 5.0 [facility] mmol/L SERVICES CL 94 (L) 98 - 108 mmol/L [facility] CO2 TOTAL 41 (H) 23 - 31 mmol/L [facility] AGAP 3 2 - 16 [facility] BUN 12 7 - 23 mg/dL [facility] GLUCOSE 105 70 - 110 mg/dL [facility] CREATININE 0.56 (L) 0.60 - 1.25 [facility] mg/dL SERVICES CALCIUM 9.6 8.6 - 10.6 [facility] mg/dL SERVICES eGFR Calculation 146.4 mL/min/1.73m2 [facility] (Non- SERVICES Spanish) eGFR Calculation 177.5 mL/min/1.73m2 [facility] () SERVICES Specimen Blood - HAND, LEFT Narrative Performed At Association of Glomerular Filtration Rate (GFR) and Staging [facility] of Kidney Disease* + + [...] tests). Performing Organization Address City/State/Zipcode Phone Number [facility] CLIA: [id number], [address] [place] [address] [facility] [address] CHEST PULMONARY ANGIOGRAM (01/03/2019 7:21 PM CDT) Specimen Impressions Performed At PACS/VR/DOSE Severely limited examination due to contrast timing and respiratory motion. Within these limitations, no large central pulmonary artery filling defect is identified or evidence of right heart strain. Mild cardiomegaly, perihilar groundglass opacities, and small bilateral pleural effusions. Findings are suggestive of mild congestive heart failure/fluid overload. 2.0 cm noncalcified nodule is again seen in the lingula, containing linear air density. It is slightly smaller than the prior study, prior to which it was not evident. This nodule remains indeterminate; consider PET/CT for further evaluation. Incompletely healed subacute to chronic right-sided rib fractures (5, 6, 10). I, MD Charmaine., have reviewed this study and agree with the above report. Narrative Performed At PROCEDURE: CT ANGIO CHEST WITH CONTRAST - PE PROTOCOL PACS/VR/DOSE CLINICAL INDICATION: PE suspected, intermediate prob, positive D-dimer COMPARISON: 08/12/2018, 07/21/2018, 01/20/2017 CT thorax. TECHNIQUE:Helical CT was performed and reconstructed at 1.25 mm slice thickness from lung bases to apices using 100 mL Omnipaque intravenous contrast, without complication. Axial MIPS and coronal/sagittal MPRS were reconstructed. (DFOV=47.3 cm) FINDINGS: PULMONARY ARTERIES: Evaluation of the pulmonary arteries is severely limited due to suboptimal contrast timing and respiratory motion. Within these limitations, no large central pulmonary artery filling defect is identified or evidence of right heart strain. CHEST: Lower neck/thyroid: Unremarkable. Lungs: Small bilateral pleural effusions with associated compressive atelectasis. Hazy groundglass opacities are noted in the perihilar regions bilaterally. A noncalcified nodule is noted in the lingula (image 3:42) with internal foci of air density; it measures up to 2.0 cm and is slightly smaller relative to the prior study. No pleural thickening or pneumothorax. Respiratory motion limits evaluation for subtle pulmonary abnormalities. Central airway: Tracheal bronchial tree calcification is noted. Pneumatized secretions are seen in the distal trachea and proximal left mainstem bronchus. Thoracic aorta and great vessels:Normal in diameter with mild atrophy right changes. Heart and pericardium: Multivessel coronary arterial calcification. Mild cardiomegaly with otherwise normal appearance cardiac morphology and pericardium. Lymph nodes: No enlarged thoracic lymph nodes. Mediastinum: Unremarkable. Thoracic spine and chest wall: Remote left-sided rib fractures. Several subacute to chronic rib fractures are seen on the right with incomplete bony bridging; for example ribs 5, 6, and 10. No suspicious bony lesion is identified. No acute fracture or dislocations are seen. Mild to moderate spondylosis. Other Lines/Tubes/Devices/Hardware: None Visualized upper abdomen: Scattered atherosclerotic calcifications. The gallbladder is contracted. Procedure Note [facility], Radiant Results Inft User - 01/04/2019 7:03 AM CDT PROCEDURE: CT ANGIO CHEST WITH CONTRAST - PE PROTOCOL CLINICAL INDICATION: PE suspected, intermediate prob, positive D-dimer COMPARISON: 08/12/2018, 07/21/2018, 01/20/2017 CT thorax. TECHNIQUE: Helical CT was performed and reconstructed at 1.25 mm slice thickness from lung bases to apices using 100 mL Omnipaque intravenous contrast, without complication. Axial MIPS and coronal/sagittal MPRS were reconstructed. (DFOV=47.3 cm) FINDINGS: PULMONARY ARTERIES: Evaluation of the pulmonary arteries is severely limited due to suboptimal contrast timing and respiratory motion. Within these limitations, no large central pulmonary artery filling defect is identified or evidence of right heart strain. CHEST: Lower neck/thyroid: Unremarkable. Lungs: Small bilateral pleural effusions with associated compressive atelectasis. Hazy groundglass opacities are noted in the perihilar regions bilaterally. A noncalcified nodule is noted in the lingula (image 3:42) with internal foci of air density; it measures up to 2.0 cm and is slightly smaller relative to the prior study. No pleural thickening or pneumothorax. Respiratory motion limits evaluation for subtle pulmonary abnormalities. Central airway: Tracheal bronchial tree calcification is noted. Pneumatized secretions are seen in the distal trachea and proximal left mainstem bronchus. Thoracic aorta and great vessels: Normal in diameter with mild atrophy right changes. Heart and pericardium: Multivessel coronary arterial calcification. Mild cardiomegaly with otherwise normal appearance cardiac morphology and pericardium. Lymph nodes: No enlarged thoracic lymph nodes. Mediastinum: Unremarkable. Thoracic spine and chest wall: Remote left-sided rib fractures. Several subacute to chronic rib fractures are seen on the right with incomplete bony bridging; for example ribs 5, 6, and 10. No suspicious bony lesion is identified. No acute fracture or dislocations are seen. Mild to moderate spondylosis. Other Lines/Tubes/Devices/Hardware: None Visualized upper abdomen: Scattered atherosclerotic calcifications. The gallbladder is contracted. IMPRESSION Severely limited examination due to contrast timing and respiratory motion. Within these limitations, no large central pulmonary artery filling defect is identified or evidence of right heart strain. Mild cardiomegaly, perihilar groundglass opacities, and small bilateral pleural effusions. Findings are suggestive of mild congestive heart failure/fluid overload. 2.0 cm noncalcified nodule is again seen in the lingula, containing linear air density. It is slightly smaller than the prior study, prior to which it was not evident. This nodule remains indeterminate; consider PET/CT for further evaluation. Incompletely healed subacute to chronic right-sided rib fractures (5, 6, 10). I, Keenan Rider MD., have reviewed this study and agree with the above report. Performing Organization Address City/State/Zipcode Phone Number PACS/VR/DOSE ACUTE CARE VENOUS BLOOD GAS (01/03/2019 3:26 PM CDT) PH 7.33 7.32 - 7.42 [facility] PCO2 OG 58 (H) 41 - 51 mmHg [facility] PO2 OG 47 (H) 25 - 40 mmHg [facility] HCO3 OG 30 (H) 24 - 28 mEq/L [facility] AC VBE(BEAKER) 2.8 mEq/L [facility] Specimen Blood Performing Organization Address City/State/Zipcode Phone Number [facility] CLIA: [id number], [address] [place] [phone] [facility] D-DIMER (01/03/2019 12:36 PM CDT) D-DIMER 0.77 (H) <0.50 g/mL (FEU) [facility] Specimen Blood - HAND, RIGHT Narrative Performed At This test may be used in conjunction with a clinical pretest [facility] probability (PTP) assessment model to exclude pulmonary embolism (PE) and as an aid in the diagnosis of deep venous thrombosis (DVT) in outpatients suspected of PE or DVT. A D-Dimer value less than 0.50 g/ml (FEU) has a negative predicative value of 98 to 100% (95% CI) for the exclusion of pulmonary embolism (PE) and 95 to 100% (95% CI) as an aid in the diagnosis of deep vein thrombosis (DVT) when there is low or moderate pretest probability of PE or DVT. D-Dimer values are expressed in initial fibrinogen equivalent units (FEU). Performing Organization Address City/State/Zipcode Phone Number [facility] CLIA: [id number], [address] [place] [address] [facility] MAGNESIUM (01/03/2019 3:25 AM CDT) MAGNESIUM 1.6 (L) 1.7 - 2.4 mg/dL [facility] Specimen Blood - ARM, LEFT Performing Organization Address City/[facility]/Zipcode Phone Number [facility] CLIA: [id number], [address] [place] [address] [facility] COMP. METABOLIC PANEL ([id number]) (01/03/2019 3:25 AM CDT) NA 137 135 - 145 [facility] mmol/L SERVICES K 4.7Comment: 3.5 - 5.0 [facility] Slight hemolysis mmol/L SERVICES CL 101 98 - 108 [facility] mmol/L SERVICES CO2 TOTAL 32 (H) 23 - 31 [facility] mmol/L SERVICES AGAP 4 2 - 16 [facility] BUN 13Comment: Slight 7 - 23 mg/dL [facility] hemolysis SERVICES GLUCOSE 115 (H) 70 - 110 [facility] mg/dL SERVICES CREATININE 0.67 0.60 - 1.25 [facility] mg/dL SERVICES TOTAL BILI 3.5 (H) 0.1 - 1.1 [facility] mg/dL SERVICES CALCIUM 7.9 (L) 8.6 - 10.6 [facility] mg/dL SERVICES T PROTEIN 6.1 (L) 6.3 - 8.2 [facility] g/dL SERVICES ALBUMIN 2.7 (L) 3.5 - 5.0 [facility] g/dL SERVICES ALK PHOS 86Comment: Slight 34 - 122 U/L [facility] hemolysis SERVICES ALT(SGPT) 51Comment: Slight 9 - 51 U/L [facility] hemolysis SERVICES AST(SGOT) 151 (H)Comment: 13 - 40 U/L [facility] Slight hemolysis SERVICES eGFR Calculation 119.0 mL/min/1.73m2 [facility] (Non- SERVICES Spanish) eGFR Calculation 144.3 mL/min/1.73m2 [facility] () SERVICES Specimen Blood - ARM, LEFT Narrative Performed At Association of Glomerular Filtration Rate (GFR) and Staging [facility] of Kidney Disease* + + [...] tests). Performing Organization Address City/State/Zipcode Phone Number [facility] CLIA: [id number], [address] [place] [phone] [facility] XR CHEST 1 VW (01/03/2019 1:27 AM CDT) Specimen Impressions Performed At PACS/VR/DOSE Interstitial and airspace opacities suggestive of pulmonary edema, though more dense consolidation in the left lung base may represent superimposed atelectasis/pneumonia. Charmaine Lawrence MD., have reviewed this study and agree with the above report. Narrative Performed At EXAM: XR CHEST 1 VW PACS/VR/DOSE HISTORY: eval for pulmonary edema COMPARISON: 12/31/2018 radiograph FINDINGS: Interstitial and airspace opacities are identified. A small left sided pleural effusion is present with associated atelectasis; the retrocardiac opacity likely represents a combination of these 2 findings. No pneumothorax. The cardiac silhouette is slightly enlarged. Aortic arch calcifications are present. No acute osseous abnormalities detected. Procedure Note [facility], Radiant Results Inft User - 01/03/2019 9:27 AM CDT EXAM: XR CHEST 1 VW HISTORY: eval for pulmonary edema COMPARISON: 12/31/2018 radiograph FINDINGS: Interstitial and airspace opacities are identified. A small left sided pleural effusion is present with associated atelectasis; the retrocardiac opacity likely represents a combination of these 2 findings. No pneumothorax. The cardiac silhouette is slightly enlarged. Aortic arch calcifications are present. No acute osseous abnormalities detected. IMPRESSION Interstitial and airspace opacities suggestive of pulmonary edema, though more dense consolidation in the left lung base may represent superimposed atelectasis/pneumonia. IKeenan MD., have reviewed this study and agree with the above report. Performing Organization Address City/State/Zipcode Phone Number PACS/VR/DOSE US ABDOMEN LIMITED WITH DOPPLER (01/02/2019 10:36 PM CDT) Specimen Impressions Performed At PACS/VR/DOSE Hepatomegaly. No focal hepatic lesions. No biliary dilatation. Right-sided pleural effusion. I, Shena Orta MD., have reviewed this study and agree with the above report. Narrative Performed At RIGHT UPPER QUADRANT ABDOMINAL ULTRASOUND PACS/VR/DOSE HISTORY: elevated T bili, hx of hep C, abdominal pain COMPARISON: CT abdomen pelvis 04/16/2018 FINDINGS: PANCREAS: Obscured by bowel gas. LIVER: The liver is enlarged at 20.1 cm.. No focal hepatic lesion. Hepatopetalflow within the main portal vein, the measured velocity is falsely decreased due to patient motion. GALLBLADDER: The gallbladder is contracted limiting evaluation. No stones are seen. Negative sonographic Mckeon's sign. The common bile duct measures 5 mm. RIGHT KIDNEY: The visualized portions of the right kidney are unremarkable. SPLEEN: Normal in echotexture and size at 9.3 cm. A right-sided pleural effusion is noted. Procedure Note [facility], Radiant Results Inft User - 01/03/2019 12:33 AM CDT RIGHT UPPER QUADRANT ABDOMINAL ULTRASOUND HISTORY: elevated T bili, hx of hep C, abdominal pain COMPARISON: CT abdomen pelvis 04/16/2018 FINDINGS: PANCREAS: Obscured by bowel gas. LIVER: The liver is enlarged at 20.1 cm.. No focal hepatic lesion. Hepatopetal flow within the main portal vein, the measured velocity is falsely decreased due to patient motion. GALLBLADDER: The gallbladder is contracted limiting evaluation. No stones are seen. Negative sonographic Mckeon's sign. The common bile duct measures 5 mm. RIGHT KIDNEY: The visualized portions of the right kidney are unremarkable. SPLEEN: Normal in echotexture and size at 9.3 cm. A right-sided pleural effusion is noted. IMPRESSION Hepatomegaly. No focal hepatic lesions. No biliary dilatation. Right-sided pleural effusion. I, Shena Orta MD., have reviewed this study and agree with the above report. Performing Organization Address City/State/Zipcode Phone Number PACS/VR/DOSE N-TERMINAL PRO-BNP (01/02/2019 4:56 AM CDT) NT-proBNP 25,200 (H) <=125 pg/mL [facility] Specimen Blood - ARM, LEFT Narrative Performed At Biotin has been reported to cause a negative bias, interpret [facility] results relative to patient's use of biotin. Performing Organization Address City/State/Zipcode Phone Number [facility] CLIA: [id number], [address] [place] [address] [facility] MAGNESIUM (01/02/2019 4:56 AM CDT) MAGNESIUM 1.7 1.7 - 2.4 mg/dL [facility] Specimen Blood - ARM, LEFT Performing Organization Address [facility] Phone Number [facility] CLIA: [id number], [address] [place] [address] [phone] [facility] COMP. METABOLIC PANEL ([id number]) (01/02/2019 4:56 AM CDT) NA 135 135 - 145 [facility] mmol/L SERVICES K 4.2 3.5 - 5.0 [facility] mmol/L SERVICES CL 103 98 - 108 mmol/L [facility] CO2 TOTAL 29 23 - 31 mmol/L [facility] AGAP 3 2 - 16 [facility] BUN 10 7 - 23 mg/dL [facility] GLUCOSE 76 70 - 110 mg/dL [facility] CREATININE 0.64 0.60 - 1.25 [facility] mg/dL SERVICES TOTAL BILI 5.1 (H) 0.1 - 1.1 mg/dL [facility] CALCIUM 7.9 (L) 8.6 - 10.6 [facility] mg/dL SERVICES T PROTEIN 5.9 (L) 6.3 - 8.2 g/dL [facility] ALBUMIN 2.6 (L) 3.5 - 5.0 g/dL [facility] ALK PHOS 84 34 - 122 U/L [facility] ALT(SGPT) 34 9 - 51 U/L [facility] AST(SGOT) 81 (H) 13 - 40 U/L [facility] eGFR Calculation 125.5 mL/min/1.73m2 [facility] (Non- SERVICES Spanish) eGFR Calculation 152.1 mL/min/1.73m2 [facility] () SERVICES Specimen Blood - ARM, LEFT Narrative Performed At Association of Glomerular Filtration Rate (GFR) and Staging [facility] of Kidney Disease* + + [...] tests). Performing Organization Address City/State/Zipcode Phone Number [facility] CLIA: [id number], [address] [place] [address] [phone] [facility] PROFILE / HEMOGRAM (01/02/2019 4:56 AM CDT) WBC 7.91 4.20 - 10.70 [facility] 10*3/L SERVICES RBC 4.15 (L) 4.26 - 5.52 [facility] 10*6/L SERVICES HGB 13.3 12.2 - 16.4 [facility] g/dL SERVICES HCT 43.0 38.4 - 49.3 % [facility] SERVICES MCH 32.0 26.1 - 32.7 pg [facility] SERVICES MCV 103.6 (H) 81.7 - 95.6 fL [facility] SERVICES MCHC 30.9 (L) 31.2 - 35.0 [facility] g/dL SERVICES PLT 74 (L) 150 - 328 [facility] 10*3/L SERVICES MPV 11.6 9.8 - 13.0 fL [facility] SERVICES RDW-CV 14.8 12.1 - 15.4 % [facility] SERVICES RDW-SD 56.2 (H) 38.5 - 51.6 fL [facility] SERVICES NRBC x10^3 <0.01 10*3/L [facility] SERVICES NRBC/100 WBC 0.0 0.0 - 10.0 [facility] /100 WBCs SERVICES IPF % 11.0 (H)Comment: 1.2 - 10.7 % [facility] Platelet count SERVICES measured by fluorescence method. Specimen Blood - ARM, LEFT Performing Organization Address City/State/Zipcode Phone Number [facility] CLIA: [id number], [address] [place] [address] [facility] XR KUB (01/01/2019 8:40 PM CDT) Specimen Impressions Performed At PACS/VR/DOSE Normal abdominal radiograph. I reviewed this study and agree. Jarred Lawrence MD., have reviewed this study and agree with the above report. Narrative Performed At EXAM: XR KUB PACS/VR/DOSE HISTORY: abdominal pain COMPARISON: 06/19/2018 radiograph FINDINGS: Multiple air-filled loops of small and large bowel are identified with no luminal distention or evidence of obstruction. A normal volume of mixed stool and gas is in the colon and rectum. No renal stones, abnormal calcifications or acute osseous abnormalities are detected. Mild to moderate spondylotic changes of the lumbar spine. Procedure Note [facility], Radiant Results Inft User - 01/02/2019 9:05 AM CDT EXAM: XR KUB HISTORY: abdominal pain COMPARISON: 06/19/2018 radiograph FINDINGS: Multiple air-filled loops of small and large bowel are identified with no luminal distention or evidence of obstruction. A normal volume of mixed stool and gas is in the colon and rectum. No renal stones, abnormal calcifications or acute osseous abnormalities are detected. Mild to moderate spondylotic changes of the lumbar spine. IMPRESSION Normal abdominal radiograph. I reviewed this study and agree. Jarred Lawrence MD., have reviewed this study and agree with the above report. Performing Organization Address [facility] Phone Number PACS/VR/DOSE BLOOD CULTURE SCREEN (01/01/2019 6:31 PM CDT) Blood No organisms isolated No growth [facility] Culture-Aerobic Comment: SERVICES Previous preliminary verified result was Culture In Progress on 01/02/2019 at 0101 CDT Previous preliminary verified result was No growth at 24 hours on 01/02/2019 at 2201 CDT Previous preliminary verified result was No growth at 48 hours on 01/03/2019 at 2202 CDT Previous preliminary verified result was No growth at 72 hours on 01/04/2019 at 2202 CDT Blood No organisms isolated No growth [facility] Culture-Anaerobic Comment: SERVICES Previous preliminary verified result was Culture In Progress on 01/02/2019 at 0101 CDT Previous preliminary verified result was No growth at 24 hours on 01/02/2019 at 2201 CDT Previous preliminary verified result was No growth at 48 hours on 01/03/2019 at 2202 CDT Previous preliminary verified result was No growth at 72 hours on 01/04/2019 at 2202 CDT Specimen Blood - HAND, RIGHT Performing Organization Address [facility] Phone Number [facility] CLIA: [id number], [address] [place] [address] [phone] [facility] Lactic Acid Whole Blood (01/01/2019 6:28 AM CDT) Pathologist [facility] LACTIC ACID 1.57 0.50 - 2.20 mmol/L [facility] Specimen Blood - LINE, VENOUS Performing Organization Address [facility] Phone Number [facility] CLIA: [id number], [address] [place] [address] [facility] CBC WITH DIFFERENTIAL (01/01/2019 6:28 AM CDT) WBC 8.01 4.20 - 10.70 [facility] 10*3/L SERVICES RBC 4.39 4.26 - 5.52 [facility] 10*6/L SERVICES HGB 14.3 12.2 - 16.4 [facility] g/dL SERVICES HCT 45.0 38.4 - 49.3 % [facility] SERVICES MCV 102.5 (H) 81.7 - 95.6 [facility] fL SERVICES MCH 32.6 26.1 - 32.7 [facility] pg SERVICES MCHC 31.8 31.2 - 35.0 [facility] g/dL SERVICES RDW-SD 55.6 (H) 38.5 - 51.6 [facility] fL SERVICES RDW-CV 14.8 12.1 - 15.4 % [facility] SERVICES PLT 74 (L) 150 - 328 [facility] 10*3/L SERVICES MPV 11.5 9.8 - 13.0 fL [facility] SERVICES IPF % 10.4Comment: 1.2 - 10.7 % [facility] Platelet count SERVICES measured by fluorescence method. NRBC/100 WBC 0.0 0.0 - 10.0 [facility] /100 WBCs SERVICES NRBC x10^3 <0.01 10*3/L [facility] SERVICES GRAN MAT (NEUT) % 78.3 % [facility] SERVICES IMM GRAN % 0.60 % [facility] SERVICES LYMPH % 7.6 % [facility] SERVICES MONO % 13.0 % [facility] SERVICES EOS % 0.1 % [facility] SERVICES BASO % 0.4 % [facility] SERVICES GRAN MAT 6.27 1.99 - 6.95 [facility] x10^3(ANC) 10*3/uL SERVICES IMM GRAN x10^3 0.05 0.00 - 0.06 [facility] 10*3/uL SERVICES LYMPH x10^3 0.61 (L) 1.09 - 3.23 [facility] 10*3/uL SERVICES MONO x10^3 1.04 (H) 0.36 - 1.02 [facility] 10*3/uL SERVICES EOS x10^3 <0.03 (L) 0.06 - 0.53 [facility] 10*3/uL SERVICES BASO x10^3 0.03 0.01 - 0.09 [facility] 10*3/uL SERVICES BASO STIPPLING Present (A) [facility] SERVICES SIDEROTIC GRAN Suggestive of [facility] (A)Comment: RBC SERVICES inclusions suggestive of siderotic granules. Iron stain required for positive identification. Specimen Blood - LINE, VENOUS Performing Organization Address City/State/Zipcode Phone Number [facility] CLIA: [id number], [address] [place] [address] [phone] [facility] MAGNESIUM (01/01/2019 6:28 AM CDT) MAGNESIUM 2.7 (H) 1.7 - 2.4 mg/dL [facility] Specimen Blood - LINE, VENOUS Performing Organization Address City/State/Zipcode Phone Number [facility] CLIA: [id number], [address] [place] [address] [phone] [facility] COMP. METABOLIC PANEL ([id number]) (01/01/2019 6:28 AM CDT) NA 136 135 - 145 [facility] mmol/L SERVICES K 4.1 3.5 - 5.0 [facility] mmol/L SERVICES CL 99 98 - 108 mmol/L [facility] SERVICES CO2 TOTAL 32 (H) 23 - 31 mmol/L [facility] SERVICES AGAP 5 2 - 16 [facility] SERVICES BUN 7 7 - 23 mg/dL [facility] GLUCOSE 116 (H) 70 - 110 mg/dL [facility] CREATININE 0.55 (L) 0.60 - 1.25 [facility] FACILITY LABORATORY mg/dL SERVICES TOTAL BILI 6.3 (H) 0.1 - 1.1 mg/dL [facility] CALCIUM 7.9 (L) 8.6 - 10.6 [facility] mg/dL SERVICES T PROTEIN 6.2 (L) 6.3 - 8.2 g/dL [facility] ALBUMIN 2.8 (L) 3.5 - 5.0 g/dL [facility] ALK PHOS 107 34 - 122 U/L [facility] ALT(SGPT) 39 9 - 51 U/L [facility] AST(SGOT) 95 (H) 13 - 40 U/L [facility] eGFR Calculation 149.5 mL/min/1.73m2 [facility] (Non- SERVICES Spanish) eGFR Calculation 181.2 mL/min/1.73m2 [facility] () SERVICES Specimen Blood - LINE, VENOUS Narrative Performed At Association of Glomerular Filtration Rate (GFR) and Staging [facility] of Kidney Disease* + + [...] abnormalities in imaging tests). Performing Organization Address [facility] Phone Number [facility] CLIA: [id number], [address] [place] [address] [phone] [facility] HCV BY PCR (01/01/2019 6:28 AM CDT) [facility] HCV by Real-Time Not Detected Not detected [facility] PCR IU/mL SERVICES Specimen Blood - LINE, VENOUS Narrative Performed At [email or web address] RealTime HCV reverse finish mill operator-polymerase [facility] SERVICES chain reaction (RT-PCR) assay is used. It is FDA approved for the quantitation of HCV in plasma and serum samples for HCV-infected individuals. The FDA approved dynamic range of this test is 12 IU/mL to 100,000,000 IU/mL (1.08-8.00 Log IU/mL). Assay results are reported in IU/mL. . Result Interpretation: Not Detected: Target not detected (not the same as negative), <12 IU/mL: Detected (but not quantifiable) 12-100,000,000 IU/mL, >100,000,000 IU/mL: >upper limit of quantification. Performing Organization Address City/[facility] Phone Number [facility] CLIA: [id number], [address] [place], [place] [phone] [facility] CT HEAD WO CONTRAST (12/31/2018 9:10 PM CDT) Specimen Impressions Performed At PACS/VR/DOSE Diffuse enlargement of the ventricular system is noted, consistent with a communicating hydrocephalus. These findings are nonspecific and can be seen with NPH amongst other etiologies. Clinical correlation is suggested. No acute intracranial hemorrhage or mass effect is identified. Narrative Performed At * * * * * * * * ORIGINAL REPORT * * * * * * * * PACS/VR/DOSE HISTORY:Altered mental status (AMS), unclear cause TECHNIQUE: Noncontrast head CT was performed. COMPARISON:None. FINDINGS: Evaluation is degraded due to motion artifact. The ventricular system is diffusely enlarged, out of portion to the degree of volume loss. This is consistent with a communicating hydrocephalus. There is no midline shift. The basal cisterns are preserved. No large vascular territory infarction, intracranial hemorrhage or mass effect is seen. The extracranial tissues demonstrate no acute findings. Chronic fracture deformity of the right inferior orbital wall is seen. Procedure Note [facility], Radiant Results Inft User - 12/31/2018 9:18 PM CDT * * * * * * * * ORIGINAL REPORT * * * * * * * * HISTORY:Altered mental status (AMS), unclear cause TECHNIQUE: Noncontrast head CT was performed. COMPARISON:None. FINDINGS: Evaluation is degraded due to motion artifact. The ventricular system is diffusely enlarged, out of portion to the degree of volume loss. This is consistent with a communicating hydrocephalus. There is no midline shift. The basal cisterns are preserved. No large vascular territory infarction, intracranial hemorrhage or mass effect is seen. The extracranial tissues demonstrate no acute findings. Chronic fracture deformity of the right inferior orbital wall is seen. IMPRESSION Diffuse enlargement of the ventricular system is noted, consistent with a communicating hydrocephalus. These findings are nonspecific and can be seen with NPH amongst other etiologies. Clinical correlation is suggested. No acute intracranial hemorrhage or mass effect is identified. Performing Organization Address City/State/Zipcode Phone Number PACS/VR/DOSE URINALYSIS (12/31/2018 8:15 PM CDT) APPEARANCE Clear Clear [facility] COLOR Yellow Yellow [facility] PH 8.0 4.8 - 8.0 [facility] SP GRAVITY 1.006 1.003 - 1.030 [facility] GLU U QUAL Normal Normal [facility] BLOOD Negative Negative [facility] KETONES Negative Negative [facility] PROTEIN Negative Negative [facility] UROBILIN 2.0 mg/dL (A) Normal [facility] BILIRUBIN Negative Negative [facility] NITRITE Negative Negative [facility] LEUK CHELE Negative Negative [facility] RBC/HPF 1 0 - 3 HPF [facility] WBC/HPF 1 0 - 5 HPF [facility] BACTERIA Negative Negative [facility] Specimen Urine - URINE, CLEAN CATCH Performing Organization Address City/State/[facility] Phone Number [facility] CLIA: [id number], [address] [place] [phone] [facility] DRUG PANEL 2 URINE (12/31/2018 8:15 PM CDT) AMPHET Negative Negative [facility] SKYLA U Negative Negative [facility] BENZO U Presumptive Negative [facility] Positive (A) SERVICES Cocaine Metabolite Negative Negative [facility] METHADONE Negative Negative [facility] OPIATES Negative Negative [facility] PCP Negative Negative [facility] THC Negative Negative [facility] Specimen Urine - URINE, CLEAN CATCH Narrative Performed At Urine Drug Cutoff Ranges [facility] Cocaine: 150 ng/mL Benzodiazepines: 200 ng/mL Methadone: 300 ng/mL Amphetamine: 1,000 ng/mL Opiates: 300 ng/mL Cannabinoids:50 ng/mL Phencyclidine: 25 ng/mL Barbiturates:200 ng/mL The results are to be used only for medical (i.e., treatment) purposes. Unconfirmed screening results must not be used for non-medical purposes (e.g., employment testing, legal testing). Performing Organization Address City/[facility]code Phone Number [facility] CLIA: [id number], [address] [place] [phone] [facility] DRUG SCREEN ER (URINE) (12/31/2018 8:15 PM CDT) AMPHET Negative Negative [facility] Cocaine Metabolite Negative Negative [facility] OPIATES Negative Negative [facility] THC Negative Negative [facility] Specimen Urine - URINE, CLEAN CATCH Narrative Performed At Urine Drug Cutoff Ranges [facility] Amphetamine: 1,000 ng/mL Cocaine: 150 ng/mL Opiates: 300 ng/mL Cannabinoids:50 ng/mL The results are to be used only for medical (i.e., treatment) purposes. Unconfirmed screening results must not be used for non-medical purposes (e.g., employment testing, legal testing). Performing Organization Address City/State/[facility]code Phone Number [facility] CLIA: [id number], [address] [place] [phone] [facility] Lactic Acid Whole Blood (12/31/2018 7:56 PM CDT) LACTIC ACID 4.11 (H) 0.50 - 2.20 mmol/L [facility] Specimen Blood - VENOUS Performing Organization Address [facility] Hospitalcofl Phone Number [facility] CLIA: [id number], [address] [place] [phone] [facility] XR CHEST 2 VW (12/31/2018 7:41 PM CDT) Specimen Impressions Performed At FINDINGS/IMPRESSION: PACS/VR/DOSE 1.Patchy opacities in both lung bases are concerning for an infectious process or aspiration. No pneumothorax or pleural effusion. 2.The cardiomediastinal silhouette is normal in size. Aortic arch calcifications are present. 3.No acute osseous abnormalities. Shena Lawrence MD., have reviewed this study and agree with the above report. Narrative Performed At EXAM: XR CHEST 2 VW PACS/VR/DOSE HISTORY: SOB, O2 requirement, hx of COPD COMPARISON: None Procedure Note [facility], Radiant Results Inft User - 12/31/2018 8:24 PM CDT EXAM: XR CHEST 2 VW HISTORY: SOB, O2 requirement, hx of COPD COMPARISON: None IMPRESSION FINDINGS/IMPRESSION: 1. Patchy opacities in both lung bases are concerning for an infectious process or aspiration. No pneumothorax or pleural effusion. 2. The cardiomediastinal silhouette is normal in size. Aortic arch calcifications are present. 3. No acute osseous abnormalities. Shena Lawrence MD., have reviewed this study and agree with the above report. Performing Organization Address [facility] Phone Number PACS/VR/DOSE Lactic Acid Whole Blood (12/31/2018 3:54 PM CDT) LACTIC ACID 5.24 (H) 0.50 - 2.20 mmol/L [facility] Specimen Blood - VENOUS Performing Organization Address [facility]/Zipcode Phone Number [facility] CLIA: [id number], [address] [place] [phone] [facility] PROCALCITONIN (12/31/2018 1:10 PM CDT) Procalcitonin 0.03 <0.07 ng/mL [facility] Specimen Blood - WRIST, LEFT Narrative Performed At INTERPRETATION OF PROCALCITONIN RESULTS IN ADULTS >=18 YEARS [facility] OF AGE Initiation and discontinuation [...] abscess/empyema. For further information please refer to: [email or web address] Performing Organization Address City/State/Zipcode Phone Number [facility] CLIA: [id number], [address] [place] [address] [phone] [facility] PHOSPHORUS (12/31/2018 1:10 PM CDT) PHOSPHORUS 4.7 2.5 - 5.0 mg/dL [facility] Specimen Blood - WRIST, LEFT Performing Organization Address City/[facility]/Zipcode Phone Number [facility] CLIA: [id number], [address] [place] [phone] [facility] MAGNESIUM (12/31/2018 1:10 PM CDT) MAGNESIUM 1.2 (L) 1.7 - 2.4 mg/dL [facility] Specimen Blood - WRIST, LEFT Performing Organization Address City/[facility] Phone Number [facility] CLIA: [id number], [address] [place] [phone] [facility] CBC WITH DIFFERENTIAL (12/31/2018 1:10 PM CDT) WBC 7.75 4.20 - 10.70 [facility] 10*3/L SERVICES RBC 4.52 4.26 - 5.52 [facility] 10*6/L SERVICES HGB 14.8 12.2 - 16.4 [facility] g/dL SERVICES HCT 44.8 38.4 - 49.3 % [facility] MCV 99.1 (H) 81.7 - 95.6 fL [facility] MCH 32.7 26.1 - 32.7 pg [facility] MCHC 33.0 31.2 - 35.0 [facility] g/dL SERVICES RDW-SD 52.4 (H) 38.5 - 51.6 fL [facility] SERVICES RDW-CV 14.5 12.1 - 15.4 % [facility] PLT 106 (L) 150 - 328 [facility] 10*3/L SERVICES MPV 11.5 9.8 - 13.0 fL [facility] SERVICES NRBC/100 WBC 0.0 0.0 - 10.0 /100 [facility] WBCs SERVICES NRBC x10^3 <0.01 10*3/L [facility] SERVICES GRAN MAT (NEUT) % 68.1 % [facility] IMM GRAN % 0.50 % [facility] LYMPH % 14.3 % [facility] MONO % 16.4 % [facility] EOS % 0.1 % [facility] BASO % 0.6 % [facility] GRAN MAT x10^3(ANC) 5.27 1.99 - 6.95 [facility] 10*3/uL SERVICES IMM GRAN x10^3 0.04 0.00 - 0.06 [facility] 10*3/uL SERVICES LYMPH x10^3 1.11 1.09 - 3.23 [facility] 10*3/uL SERVICES MONO x10^3 1.27 (H) 0.36 - 1.02 [facility] 10*3/uL SERVICES EOS x10^3 <0.03 (L) 0.06 - 0.53 [facility] 10*3/uL SERVICES BASO x10^3 0.05 0.01 - 0.09 [facility] 10*3/uL SERVICES Specimen Blood - WRIST, LEFT Performing Organization Address [facility] Hospitalcofl Phone Number [facility] CLIA: [id number], [address] [place] [address] [phone] [facility] Lactic Acid Whole Blood (12/31/2018 1:10 PM CDT) LACTIC ACID 9.49 (H) 0.50 - 2.20 mmol/L [facility] Specimen Blood - WRIST, LEFT Performing Organization Address [facility] Phone Number [facility] CLIA: [id number], [address] [place] [address] [phone] [facility] ETHANOL (12/31/2018 1:10 PM CDT) ALCOHOL <10 mg/dL [facility] Specimen Blood - WRIST, LEFT Narrative Performed At Toxic Greater than or equal to 80 mg/dL. [facility] NOTE: Whole blood values are approximately 10% to 15% lower than serum and plasma. Performing Organization Address [facility] Phone Number [facility] CLIA: [id number], [address] [place] [phone] [facility] LIPASE (12/31/2018 1:10 PM CDT) LIPASE 66 0 - 220 U/L [facility] Specimen Blood - WRIST, LEFT Performing Organization Address City/State/Zipcode Phone Number [facility] CLIA: [id number], [address] [place], [place] [phone] [facility] COMP. METABOLIC PANEL ([id number]) (12/31/2018 1:10 PM CDT) NA 133 (L) 135 - 145 [facility] mmol/L SERVICES K 3.7 3.5 - 5.0 [facility] mmol/L SERVICES CL 95 (L) 98 - 108 mmol/L [facility] CO2 TOTAL 19 (L) 23 - 31 mmol/L [facility] AGAP 19 (H) 2 - 16 [facility] BUN 3 (L) 7 - 23 mg/dL [facility] GLUCOSE 142 (H) 70 - 110 mg/dL [facility] CREATININE 0.62 0.60 - 1.25 [facility] mg/dL SERVICES TOTAL BILI 2.4 (H) 0.1 - 1.1 mg/dL [facility] CALCIUM 8.1 (L) 8.6 - 10.6 [facility] mg/dL SERVICES T PROTEIN 7.0 6.3 - 8.2 g/dL [facility] ALBUMIN 3.5 3.5 - 5.0 g/dL [facility] ALK PHOS 129 (H) 34 - 122 U/L [facility] ALT(SGPT) 36 9 - 51 U/L [facility] AST(SGOT) 80 (H) 13 - 40 U/L [facility] eGFR Calculation 130.2 mL/min/1.73m2 [facility] (Non- SERVICES Spanish) eGFR Calculation 157.8 mL/min/1.73m2 [facility] () SERVICES Specimen Blood - WRIST, LEFT Narrative Performed At Association of Glomerular Filtration Rate (GFR) and Staging [facility] of Kidney Disease* + + [...] tests). Performing Organization Address City/State/Zipcode Phone Number [facility] CLIA: [id number], [address] [place] [address] [phone] [facility] documented in this encounter Visit Diagnoses Diagnosis Alcohol withdrawal seizure with delirium - Primary Shortness of breath Epigastric pain Abdominal pain, epigastric Acute on chronic congestive heart failure, unspecified heart failure type Hypoxia Hypoxemia SOB (shortness of breath) Shortness of breath COPD exacerbation Obstructive chronic bronchitis with exacerbation Tinea cruris Dermatophytosis of groin and perianal area COPD with acute exacerbation Obstructive chronic bronchitis with exacerbation Suicidal ideation documented in this encounter Administered Medications Medication Order MAR Action Action Date Dose Rate Site acetaminophen (TYLENOL) tablet 650 mg 650 mg, Oral, Q6HPRN, Starting Sat12/31/18 at 1908, Until Discontinued, Routine , Pain (scale 1-3) aspirin chewable tablet 81 mg Given 01/09/2019 7:39 AM CDT 81 mg 81 mg, Oral, DAILY, First dose on Sat01/07/19 at 0900, Until Discontinued, Routine Given 01/08/2019 8:49 AM CDT 81 mg Given 01/07/2019 9:02 AM CDT 81 mg atorvastatin (LIPITOR) tablet 20 mg Given 01/08/2019 8:57 PM CDT 20 mg 20 mg, Oral, QHS, First dose on Sat01/07/19 at 2100, Until Discontinued, Routine Given 01/07/2019 8:27 PM CDT 20 mg foLIC acid (FOLATE) tablet 1 mg Given 01/09/2019 7:38 AM CDT 1 mg 1 mg, Oral, DAILY, First dose on Sat01/01/19 at 0900, Until Discontinued, Routine Given 01/08/2019 8:49 AM CDT 1 mg Given 01/07/2019 9:02 AM CDT 1 mg furosemide (LASIX) tablet 20 mg 20 mg, Oral, QHS, First dose on Sat01/09/19 at 1000, Until Discontinued, Routine furosemide (LASIX) tablet 40 mg 40 mg, Oral, DAILY, First dose on Sat01/10/19 at 0900, Until Discontinued, Routine guaiFENesin 100 mg/5 mL solution 100 mg 100 mg, Oral, Q4HPRN, Starting Sat01/07/19 at 1801, Until Discontinued, Routine , Cough heparin injection 5,000 Units Given 01/09/2019 7:42 AM CDT 5,000 Units Abdomen-SC 5,000 Units, Subcutaneous, Q12H, First dose on Sat12/31/18 at 2000, Until Discontinued, Routine Given 01/08/2019 8:52 AM CDT 5,000 Units Abdomen-SC Given 01/07/2019 8:29 PM CDT 5,000 Units Abdomen-SC ipratropium (ATROVENT) 0.02 % nebulizer Given 01/09/2019 2:34 PM CDT 0.5 mg solution 0.5 mg 0.5 mg, Inhalation, TID, First dose on Sat01/01/19 at 0800, Until Discontinued, Routine Given 01/09/2019 8:42 AM CDT 0.5 mg Given 01/08/2019 8:21 PM CDT 0.5 mg levalbuterol (XOPENEX) nebulizer solution Given 01/09/2019 8:42 AM CDT 0.31 mg 0.31 mg 0.31 mg, Inhalation, TID, First dose on Sat12/31/18 at 2345, Until Discontinued, Routine, Approved by: MEI LUND, PULMONARY/CRITICAL CARE Given 01/08/2019 1:03 PM CDT 0.31 mg Given 01/08/2019 6:26 AM CDT 0.31 mg metoprolol tartrate (LOPRESSOR) half tablet Given 01/09/2019 7:38 AM CDT 12.5 mg 12.5 mg 12.5 mg, Oral, BID, First dose on Sat01/08/19 at 2000, Until Discontinued, Routine Given 01/08/2019 8:57 PM CDT 12.5 mg nicotine (NICODERM) 7 mg/24 hr patch 1 Applied 01/09/2019 6:39 AM CDT 1 Patch Patch 1 Patch, Topical, Administer over 24 Hours, Q24H, First dose on 01/04/19 at 0630, Until Discontinued, Routine Applied 01/08/2019 5:33 AM CDT 1 Patch Given 01/07/2019 9:02 AM CDT 1 Patch oxazepam (SERAX) capsule 15 mg Given 01/09/2019 1:03 AM CDT 15 mg 15 mg, Oral, Q4HPRN, Starting Sat01/02/19 at 1633, Until Discontinued, Routine, Only while awake for DBP equal to or greater than 100, HR equal to or greater than 100, or agitation Given 01/06/2019 8:26 PM CDT 15 mg Given 01/06/2019 12:48 AM CDT 15 mg pantoprazole (PROTONIX) EC tablet 40 mg Given 01/09/2019 7:38 AM CDT 40 mg 40 mg, Oral, DAILY, First dose on Yuridia 01/01/19 at 0900, Until Discontinued, Routine Given 01/08/2019 8:50 AM CDT 40 mg Given 01/07/2019 9:02 AM CDT 40 mg PARoxetine (PAXIL) tablet 20 mg Given 01/09/2019 7:38 AM CDT 20 mg 20 mg, Oral, DAILY, First dose on Yuridia 01/01/19 at 0900, Until Discontinued, Routine Given 01/08/2019 8:50 AM CDT 20 mg Given 01/07/2019 9:02 AM CDT 20 mg sodium chloride 7% (HYPER-KIKA) nebulizer Given 01/09/2019 8:38 AM CDT 4 mL solution 4 mL 4 mL, Inhalation, BID, First dose on Yuridia 01/01/19 at 0800, Until Discontinued, Routine Given 01/08/2019 8:21 PM CDT 4 mL Given 01/08/2019 6:23 AM CDT 4 mL thiamine (VITAMIN B1) tablet 100 mg Given 01/09/2019 7:39 AM CDT 100 mg 100 mg, Oral, DAILY, First dose on [place]idia 01/01/19 at 0900, Until Discontinued, Routine Given 01/08/2019 8:49 AM CDT 100 mg Given 01/07/2019 9:02 AM CDT 100 mg traZODONE (DESYREL) tablet 50 mg Given 01/08/2019 8:57 PM CDT 50 mg 50 mg, Oral, QHS, First dose on Sat01/05/19 at 2100, Until Discontinued, Routine Given 01/07/2019 8:27 PM CDT 50 mg Given 01/06/2019 8:26 PM CDT 50 mg Medication Order MAR Action Action Date Dose Rate Site chlordiazePOXIDE (LIBRIUM) capsule Given 12/31/2018 6:42 PM CDT 75 mg 75 mg 75 mg, Oral, ONCE, 1 dose, Sat12/31/18 at 1530, DUSTY furosemide (LASIX) injection 20 mg Given 01/03/2019 9:19 AM CDT 20 mg 20 mg, Slow IV Push, ONCE, 1 dose, 01/03/19 at 0700, DUSTY furosemide (LASIX) injection 20 mg Given 01/04/2019 1:22 AM CDT 20 mg 20 mg, Slow IV Push, ONCE, 1 dose, [place] 01/04/19 at 0200, DUSTY furosemide (LASIX) injection 20 mg Given 01/04/2019 2:53 PM CDT 20 mg 20 mg, Slow IV Push, ONCE, 1 dose, [place] 01/04/19 at 1330, DUSTY furosemide (LASIX) injection 20 mg Given 01/05/2019 12:00 PM CDT 20 mg 20 mg, Slow IV Push, ONCE, 1 dose, Sat01/05/19 at 1145, DUSTY furosemide (LASIX) tablet 40 mg Given 01/07/2019 9:02 AM CDT 40 mg 40 mg, Oral, DAILY, 2 doses, First dose on Sat01/06/19 at 1145, Last dose on Sat01/07/19 at 0900, Routine Given 01/06/2019 3:11 PM CDT 40 mg furosemide (LASIX) tablet 40 mg Given 01/09/2019 7:39 AM CDT 40 mg 40 mg, Oral, DAILY, 2 doses, First dose on Sat01/08/19 at 0900, Last dose on Sat01/09/19 at 0900, Routine Given 01/08/2019 8:49 AM CDT 40 mg guaiFENesin 100 mg/5 mL solution 100 mg Given 01/07/2019 3:10 PM CDT 100 mg 100 mg, Oral, Q4H, First dose on Sat01/01/19 at 1600, Until Discontinued, Routine Given 01/07/2019 9:02 AM CDT 100 mg Given 01/06/2019 8:26 PM CDT 100 mg iohexol (OMNIPAQUE 350 BULK-100 mL) Given 01/03/2019 7:14 PM CDT 100 mL injection 100 mL 100 mL, Intravenous, ONCE, 1 dose, [place] 01/03/19 at 1930, Routine ipratropium-albuterol (DUONEB) 0.5 mg-3 mg(2.5 Given 12/31/2018 4:52 PM CDT 3 mL mg base)/3 mL nebulizer solution 3 mL 3 mL, Inhalation, ONCE NOW, 1 dose, Sat12/31/18 at 1730, DUSTY KCL (KLOR-CON M20) tablet 40 mEq Given 12/31/2018 10:05 PM CDT 40 mEq 40 mEq, Oral, ONCE, 1 dose, Sat12/31/18 at 2000, Routine lactated ringers IV infusion New Bag 12/31/2018 1:08 PM CDT 1,000 mL 999 mL/hr 1,000 mL at 999 mL/hr, 1,000 mL, IV Infusion, ONCE, 1 dose, Sat12/31/18 at 1400, Routine LORazepam (ATIVAN) injection 1 mg Given 01/01/2019 5:02 AM CDT 1 mg 1 mg, Slow IV Push, ONCE, 1 dose, [facility] 01/01/19 at 0445, Routine LORazepam (ATIVAN) injection 2 mg Given 12/31/2018 6:06 PM CDT 2 mg 2 mg, Slow IV Push, ONCE, 1 dose, Sat12/31/18 at 1830, STAT magnesium sulfate in water 2 gram/50 mL (4 %) New Bag 01/07/2019 9:02 AM CDT 2 g infusion 2 g 2 g, IV Piggyback, ONCE, 1 dose, Sat01/07/19 at 0800, Routine magnesium sulfate in water 4 gram/50 mL (8 %) New Bag 01/01/2019 4:12 AM CDT 4 g IV Piggyback 4 g 4 g, IV Piggyback, ONCE, 1 dose, [facility] 01/01/19 at 0115, Routine magnesium sulfate in water 4 gram/50 mL (8 %) New Bag 01/03/2019 5:42 AM CDT 4 g IV Piggyback 4 g 4 g, IV Piggyback, ONCE, 1 dose, [place] 01/03/19 at 0615, Routine magnesium sulfate in water 4 gram/50 mL (8 %) New Bag 01/07/2019 4:41 AM CDT 4 g IV Piggyback 4 g 4 g, IV Piggyback, ONCE, 1 dose, Sat01/07/19 at 0415, Routine midazolam (VERSED) injection 4 mg Given 12/31/2018 12:59 PM CDT 4 mg Left Thigh 4 mg, Intramuscular, ONCE, 1 dose, Sat12/31/18 at 1400, STAT NaCl 0.9% (NS) IV infusion 1,000 New Bag 01/02/2019 5:07 AM CDT 1,000 mL 100 mL/hr mL at 100 mL/hr, IV Infusion, CONTINUOUS, Starting Sat12/31/18 at 2200, Until Sat01/02/19 at 1604, Routine New Bag 01/01/2019 3:10 PM CDT 1,000 mL 100 mL/hr New Bag 12/31/2018 10:05 PM CDT 1,000 mL 100 mL/hr ondansetron (ZOFRAN (PF)) injection 4 mg Given 01/01/2019 4:12 AM CDT 4 mg 4 mg, Slow IV Push, ONCE, 1 dose, Sat01/01/19 at 0415, Routine oxazepam (SERAX) capsule 15 mg Given 01/01/2019 12:01 AM CDT 15 mg 15 mg, Oral, Q6H, 4 doses, First dose on Sat01/01/19 at 0000, Last dose on Sat01/01/19 at 1800, Routine oxazepam (SERAX) capsule 15 mg Given 01/01/2019 8:44 PM CDT 15 mg 15 mg, Oral, Q4HPRN, Starting Sat12/31/18 at 1914, Until Sat01/02/19 at 1634, Routine, Only while awake for DBP equal to or greater than 100, HR equal to or greater than 100. Given 12/31/2018 10:05 PM CDT 15 mg oxazepam (SERAX) capsule 30 mg Given 01/01/2019 6:13 PM CDT 30 mg 30 mg, Oral, Q6H, 3 doses, First dose on Sat01/01/19 at 0600, Last dose on Sat01/01/19 at 1800, Routine Given 01/01/2019 11:38 AM CDT 30 mg Given 01/01/2019 6:08 AM CDT 30 mg oxazepam (SERAX) capsule 30 mg Given 01/02/2019 2:48 PM CDT 30 mg 30 mg, Oral, Q8H, 3 doses, First dose on Sat01/02/19 at 0000, Last dose on Sat01/02/19 at 1400, Routine Given 01/02/2019 9:10 AM CDT 30 mg Given 01/02/2019 1:22 AM CDT 30 mg oxazepam (SERAX) capsule 30 mg Given 01/03/2019 9:19 AM CDT 30 mg 30 mg, Oral, Q12H, 2 doses, First dose on Sat01/02/19 at 2200, Last dose on Sat01/03/19 at 0800, Routine Given 01/02/2019 9:54 PM CDT 30 mg perflutren protein-A microsphr (OPTISON) Given 01/06/2019 2:30 PM CDT 3 mL injection 3 mL 3 mL, IV Push, ONCE, 1 dose, Sat01/06/19 at 1430, Routine piperacillin-tazobactam (ZOSYN) 4.5 g in NaCl Given 01/05/2019 8:54 AM CDT 4.5 g 0.9% (NS) 100 mL MINI-BAG 4.5 g, IV Piggyback, Q6H ABX, First dose on Sat01/01/19 at 1915, Until Discontinued, 100 mL, Reason for Anti-Infective: Documented Infection, Documented Infection Site: Respiratory, Duration of Therapy: 7 days Given 01/04/2019 2:57 PM CDT 4.5 g Given 01/04/2019 8:49 AM CDT 4.5 g Polyethylene Glycol 3350 (MIRALAX) powder 17 g Given 01/05/2019 3:54 PM CDT 17 g 17 g, Oral, ONCE, 1 dose, Sat01/05/19 at 1500, Routine predniSONE (DELTASONE) tablet 40 mg Given 01/05/2019 8:53 AM CDT 40 mg 40 mg, Oral, Q24H, First dose on Sat01/01/19 at 0145, Until Discontinued, Routine Given 01/04/2019 8:49 AM CDT 40 mg Given 01/03/2019 10:39 AM CDT 40 mg sennosides (SENOKOT) tablet 8.6 mg Given 01/02/2019 1:22 AM CDT 8.6 mg 8.6 mg, Oral, BID, First dose on Sat01/01/19 at 2100, Until Discontinued, Routine thiamine (VITAMIN B1) 100 mg, foLIC New Bag 12/31/2018 10:05 PM CDT 100 mL /hr acid (FOLATE) 1 mg, multivitamin adult (INFUVITE ADULT) 3,300 unit- 150 mcg/10 mL 10 mL in D5W 0.45% NaCl (1/2NS) IV Solution IV Infusion, at 100 mL/hr, ONCE, 1 dose, Sat12/31/18 at 1915, 1,000 mL documented in this encounter Insurance Payer Benefit Plan / Subscriber ID Effective Dates Phone Address Type Group MEDICARE MEDICARE PART xxxxxxxxxx 2000-Arnaud [phone] [address] Medicare A & B t 2 [id number] [place] [phone] (Work) [id number] documented as of this encounter
--- OUTSIDE RECORDS SUMMARY | 2019-06-24 10:52 | XMS REPORT | Summary of Care ---
:[address] [facility] Address [address] [place] [id number] Care Team Providers Name Role Phone Pcp, Patient Does Not Have A Primary Care Provider Pcp, Patient Does Not Have A Unavailable Pcp, Patient Does Not Have A Primary Care Provider Encounter Details Date Type Department Care Team Description 04/30/[address] [facility] Doctor Unassigned, No [address] [facility] [place], [place] [id number] [place] [id number] Allergies No Known Allergiesdocumented as of this encounter (statuses as of 05/20/2019) Medications Medication Sig Dispensed Refills Start Date End Date Status albuterol 90 Inhale 2 Puffs 8.5 g 0 01/09/2019 Active mcg/actuation every 6 (six) inhalerIndications: hours as needed COPD exacerbation for Wheezing or Shortness of Breath. foLIC acid 1 mg Take 1 tablet by 30 tablet 0 01/09/2019 Active tabletIndications: mouth daily. Tinea cruris, COPD with acute exacerbation PARoxetine 20 mg Take 1 tablet by 30 tablet 0 01/09/2019 Active tabletIndications: mouth daily. Suicidal ideation thiamine 100 mg Take 1 tablet by 30 tablet 0 01/09/2019 Active tabletIndications: mouth daily. Tinea cruris, COPD with acute exacerbation traZODONE 50 mg Take 1 tablet by 30 tablet 0 01/09/2019 Active tabletIndications: mouth at bedtime. Alcohol withdrawal seizure with delirium budesonide-formoterol Inhale 2 Puffs 2 10.2 g 0 01/09/2019 Active 80-4.5 mcg/actuation (two) times daily. inhalerIndications: COPD exacerbation aspirin 81 mg chewable Take 1 tablet by 30 tablet 0 01/10/2019 Active tabletIndications: mouth daily. Alcohol withdrawal seizure with delirium atorvastatin 20 mg Take 1 tablet by 30 tablet 0 01/09/2019 Active tabletIndications: mouth at bedtime. Alcohol withdrawal seizure with delirium furosemide 20 mg Take 1 tablet by 30 tablet 0 01/09/2019 Active tabletIndications: mouth at bedtime. Alcohol withdrawal seizure with delirium furosemide 40 mg Take 1 tablet by 30 tablet 0 01/09/2019 Active tabletIndications: mouth every Alcohol withdrawal morning. seizure with delirium metoprolol tartrate 25 Take 0.5 tablets 30 tablet 0 01/09/2019 Active mg tabletIndications: by mouth 2 (two) Alcohol withdrawal times daily. seizure with delirium nicotine 7 mg/24 hr Apply 1 Patch to 20 Patch 0 01/10/2019 Active patchIndications: area(s) every 24 Alcohol withdrawal (twenty-four) seizure with delirium hours. documented as of this encounter (statuses as of 05/20/2019) Active Problems Problem Noted Date Alcohol withdrawal [...] as of this encounter (statuses as of 05/20/2019) Resolved Problems Problem Noted Date Resolved Date Hypoxia 12/01/2017 12/01/2017 Altered mental status 11/27/2017 12/01/2017 Bipolar disorder 05/21/2018 documented as of this encounter (statuses as of 05/20/2019) Immunizations Name Administration Dates Next Due Influenza [...] of this encounter Last Filed Vital Signs Not on filedocumented in this encounter Plan of Treatment Health Maintenance Due Date Last Done Comments DTaP,Tdap,and Td Vaccines (1 - Tdap) 1964 09/08/2013 COLONOSCOPY 10/29/2003 Zoster Recombinant Vaccine (SHINGRIX) 10/29/2003 (1 of 2) LUNG CANCER SCREEN: Recommended for 01/20/2018 01/20/2017, 12/21/2016, age 55-80 with 30 + pack year history 05/10/2016 Medicare Wellness Visit 2018 PNEUMOCOCCAL VACCINES 65+ (1 of 2 - 2018 07/20/2016 PCV13) INFLUENZA VACCINE (#1) 2019 07/20/2016, 05/06/1974 HEPATITIS C (HCV) SCREEN Completed 12/28/2013 documented as of this encounter Procedures Procedure Name Priority Date/Time Associated Diagnosis Comments AUTHORIZATION FOR RELEASE Routine 04/30/2019 12:01 AM 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 Medicare A & B t 2 [id number] [place] [id number] MEDICARE MEDICARE PART xxxxxxxxxxx 2000-Presen [phone] [address] Medicare A & B t 2 [id number] [place] [id number] documented as of this encounter
--- OUTSIDE RECORDS SUMMARY | 2019-06-24 10:52 | XMS REPORT | Summary of Care ---
:1955 Author Organization [facility] Address [address] [place] [id number] Care Team Providers Name Role Phone Pcp, Patient Does Not Have A Unavailable Pcp, Patient Does Not Have A Primary Care Provider Reason for Visit Auth/Cert Status Reason Specialty Diagnoses / Procedures Referred By Contact Referred To Contact [facility] [address] [place] [address] Encounter Details Date Type Department Care Team Description 05/15/2019 Hospital Encounter [facility] Ulises Vaz MD C[facility] [address] [facility] [id number] [address] [place] [address] [place] [address] Allergies No Known Allergiesdocumented as of this [...] Completed 12/28/2013 documented as of this encounter Results Not on filedocumented in this encounter Insurance Payer Benefit Plan / Subscriber ID Effective Dates Phone Address Type Group MEDICARE MEDICARE PART xxxxxxxxxxx 2000-Arnaud [phone] [address] Medicare A & B t 2 [id number] [place] HASK[place] [phone] (Home) [facility] [phone] [place], [place] (Work) [id number] documented as of this encounter
--- NOTE | 2019-06-24 12:02 | RAD REPORT ---
EXAM DESCRIPTION: RAD - Knee Right 2 View - 06/24/2019 11:48 am CLINICAL HISTORY: fall;Pain COMPARISON: No comparisons FINDINGS: Significant medial compartment space arthritic changes are noted. Vascular calcifications present. An acute fracture is not seen, although submitted images are limited by patient positioning.
--- NOTE | 2019-06-24 12:05 | RAD REPORT ---
EXAM DESCRIPTION: RAD - Knee Left 2 View - 06/24/2019 11:48 am CLINICAL HISTORY: fall;Pain COMPARISON: No comparisons FINDINGS: Advanced medial compartment space osteoarthritis. No fracture or joint effusion evident. E valuation is limited by nonstandard patient positioning.
[2019-06-24 12:19] LABS: Basophils % 0.7 % (0-1.3); Hematocrit 39.8 % (39.6-49.0); Lymphocytes % 11.4 % (15.3-44.8); MPV 7.8 fL (7.6-11.3)
[2019-06-24 12:56] LABS: BUN Blood Urea Nitrogen 6 mg/dL (7-18); Bicarbonate 32 mmol/L (21-32); Creatine Phosphokinase 203 U/L (39-308); Glucose Level 95 mg/dL (74-106); NT PRO-BNP 370 pg/mL (<125); Potassium 3.8 mmol/L (3.5-5.1); Sodium Level 141 mmol/L (136-145)
[2019-06-24] MEDS ORDERED: HYDROCODONE/APAP 5/325 MG TAB ONE (13:00)
--- NOTE | 2019-06-24 13:30 | EDPHYS ---
Physician Documentation [facility] Name: Matt Bertrand Age: 63 yrs Sex: Male : 1955 Arrival Date: 06/24/2019 Time: 10:44 Bed 2 Private MD: ED Physician Deonte Suarez HPI: 06/24 12:54 This 63 yrs old Male presents to ER via EMS with complaints of Pain in legs, rn Eczema. 12:54 Reports pain to both legs, has been going on for sometime, but worse over last few rn days, reports uses wheelchair to get around, and knees ache when assisting himself. Reports has fallen onto knees recently. No fever. Spent night in assisted for PI, and laying in position, and states hurts more now.. Onset: The symptoms/episode began/occurred at an unknown time. Severity of symptoms: At their worst the symptoms were mild in the emergency department the symptoms are unchanged. The patient has experienced similar episodes in the past. The patient has not recently seen a physician. Historical: - PMHx: 10:44 Hydrocephalus; Eczema; rb1 - PSHx: 10:44 None; rb1 - Immunization history:: Adult Immunizations unknown. - Coronavirus screen:: The patient has NOT traveled to [place] in the past 14 days. The patient has NOT had contact with known/suspected case of Coronavirus?. - Social history:: Smoking status: Patient reports the use of cigarette tobacco products, smokes one pack cigarettes per day. Patient uses alcohol, 12 pack per day. Patient/guardian denies using street drugs. - Family history:: not pertinent. - Ebola Screening: : No symptoms or risks identified at this time. - Hospitalizations: : No recent hospitalization is reported. ROS: 12:54 Constitutional: Negative for fever, chills, and weight loss, Eyes: Negative for injury, rn pain, redness, and discharge, Neck: Negative for injury, pain, and swelling, Cardiovascular: Negative for chest pain, palpitations Respiratory: Negative for shortness of breath, cough, wheezing, and pleuritic chest pain, Abdomen/GI: Negative for abdominal pain, nausea, vomiting, diarrhea, and constipation, Back: Negative for injury and pain, MS/Extremity: + bilateral knee pain and leg swelling Skin: + dry scaly skin to legs Neuro: Negative for headache, weakness, numbness, tingling, and seizure. Exam: 12:54 Constitutional: Overweight male, disheveled, laying on his side Head/Face: rn Normocephalic, atraumatic. Neck: Trachea midline, no masses palpated. Supple, full range of motion without nuchal rigidity, or vertebral point tenderness. No Meningismus. Cardiovascular: Regular rate and rhythm. No pulse deficits. Abdomen/GI: soft, non-tender Back: No spinal tenderness. MS/ Extremity: Pulses equal, no cyanosis. Neurovascular intact. 1+ pitting edema bilateral lower ext, equal circumference, + dry skin without abscess/cellulitis/streaking evident. Neuro: Awake and alert, GCS 15, oriented to person, place, time, and situation. Cranial nerves II-XII grossly intact. Motor strength 4/5 in all extremities. Sensory grossly intact. Vital Signs: 10:58 BP 157 / 114; Pulse 97; Resp 18; Temp 98.1; Pulse Ox 94% on R/A; Weight 95.25 kg; Pain ph 8/10; 13:01 BP 164 / 105; Pulse 112; Resp 18; Pulse Ox 95% on R/A; ph MDM: 10:45 Patient medically screened. rn 13:20 Differential Diagnosis rhabdo, arthritis, tendinitis . Data reviewed: vital signs, rn nurses notes, lab test result(s), radiologic studies, plain films, and as a result, I will discharge patient. Counseling: I had a detailed discussion with the patient and/or guardian regarding: the historical points, exam findings, and any diagnostic results supporting the discharge/admit diagnosis, lab results, radiology results, the need for outpatient follow up, to return to the emergency department if symptoms worsen or persist or if there are any questions or concerns that arise at home. Special discussion: I discussed with the patient/guardian in detail that at this point there is no indication for admission to the hospital. It is understood, however, that if the symptoms persist or worsen the patient needs to return immediately for re-evaluation. ED course: No acute findings, xrays suggestive of advanced arthritis and compartmental changes, normal cpk, no signs of infection and WBC normal, afebrile, will dc home. . 06/24 10:54 Order name: CK; Complete Time: 13:05 rn 06/24 10:54 Order name: CBC with Diff rn 06/24 10:54 Order name: Basic Metabolic Panel; Complete Time: 13:05 rn 06/24 10:54 Order name: N-Terminal Pro-brain Natriuretic Peptide; Complete Time: 13:05 rn 06/24 10:54 Order name: IV Start; Complete Time: 12:15 rn 06/24 11:27 Order name: Knee Right 2 View EDWY 06/24 11:29 Order name: Knee Left 2 View EDWY Administered Medications: 12:59 Drug: [place] 5 mg-325 mg 1 tabs Route: PO; ph 13:50 Follow up: Response: No adverse reaction; Pain is decreased ph Disposition: 06/24/19 13:28 Discharged to Home. Impression: Osteoarthritis of knee, unspecified, Edema, unspecified. - Condition is Stable. - Discharge Instructions: Arthritis, Edema, Knee Pain. - Medication Reconciliation Form, Thank You Letter, Antibiotic Education, Prescription Opioid Use form. - Follow up: Private Physician; When: As needed; Reason: Recheck today's complaints, Re-evaluation by your physician. - Problem is an ongoing problem. - Symptoms have improved. Signatures: Dispatcher [employer] [facility] Deonte Saurez MD MD rn Hall, Patricia, RN RN ph Janeen Diallo RN RN rb1 Corrections: (The following items were deleted from the chart) 11:24 10:56 Knee Right 3 View+RAD.RAD.BRZ ordered. [facility] EDWY 11:24 10:56 Knee Left 3 View+RAD.RAD.BRZ ordered. [facility] EDWY 12:56 12:54 Constitutional: Negative for fever, chills, and weight loss, Eyes: Negative for rn injury, pain, redness, and discharge, Neck: Negative for injury, pain, and swelling, Cardiovascular: Negative for chest pain, palpitations Respiratory: Negative for shortness of breath, cough, wheezing, and pleuritic chest pain, Abdomen/GI: Negative for abdominal pain, nausea, vomiting, diarrhea, and constipation, MS/Extremity: + bilateral knee pain Skin: + dry scaly skin to legs Neuro: Negative for headache, weakness, numbness, tingling, and seizure, rn 14:01 13:28 06/24/2019 13:28 Discharged to Home. Impression: Osteoarthritis of knee, ph unspecified; Edema, unspecified. Condition is Stable. Forms are Medication Reconciliation Form, Thank You Letter, Antibiotic Education, Prescription Opioid Use. Follow up: Private Physician; When: As needed; Reason: Recheck today's complaints, Re-evaluation by your physician. Problem is an ongoing problem. Symptoms have improved. rn
--- NOTE | 2019-06-24 13:30 | ER ---
Nurse's Notes [facility] Name: Matt Bertrand Age: 63 yrs Sex: Male : 1955 Arrival Date: 06/24/2019 Time: 10:44 Bed 2 Private MD: Diagnosis: Osteoarthritis of knee, unspecified;Edema, unspecified Presentation: 06/24 10:55 Presenting complaint: EMS states: Pt c/o bilateral lower leg pain and eczema, picked up ph at police department, was arrested last night for PI, pt states, " My skin on my legs are like this because I was soaked in urine". Transition of care: patient was not received from another setting of care. Onset of symptoms was June 24, 2019. Risk Assessment: Do you want to hurt yourself or someone else? Patient reports no desire to harm self or others. Initial Sepsis Screen: Does the patient meet any 2 criteria? No. Patient's initial sepsis screen is negative. Does the patient have a suspected source of infection? No. Patient's initial sepsis screen is negative. Care prior to arrival: None. 10:55 Method Of Arrival: EMS: [facility] ph 10:55 Acuity: [place] 3 ph Historical: - PMHx: 10:44 Hydrocephalus; Eczema; rb1 - PSHx: 10:44 None; rb1 - Immunization history:: Adult Immunizations unknown. - Coronavirus screen:: The patient has NOT traveled to [place] in the past 14 days. The patient has NOT had contact with known/suspected case of Coronavirus?. - Social history:: Smoking status: Patient reports the use of cigarette tobacco products, smokes one pack cigarettes per day. Patient uses alcohol, 12 pack per day. Patient/guardian denies using street drugs. - Family history:: not pertinent. - Ebola Screening: : No symptoms or risks identified at this time. - Hospitalizations: : No recent hospitalization is reported. Screenin:59 Abuse screen: Denies threats or abuse. Denies injuries from another. Nutritional ph screening: No deficits noted. Tuberculosis screening: No symptoms or risk factors identified. Fall Risk None identified. Assessment: 11:30 General: Appears in no apparent distress. uncomfortable, unkempt, Behavior is ph cooperative, appropriate for age, fussy, Denies fever. Pain: Complains of pain in right foot, left foot, right leg and left leg. Neuro: Level of Consciousness is awake, alert, obeys commands, Oriented to person, place, time, situation. Cardiovascular: Capillary refill < 3 seconds in bilateral fingers toes Pulses are palpable in right dorsalis pedis artery and left dorsalis pedis artery Edema is 2+ to left ankle, left foot, right ankle and right foot. Respiratory: Airway is patent Respiratory effort is even, unlabored. Derm: Skin skin to lower extremities noted to be red, cracked and peeling, pt states, " It's because I was soaked w/ urine when I urinated on myself.". Musculoskeletal: Circulation, motion, and sensation intact. Range of motion: intact in all extremities. 13:00 Reassessment: Patient appears in no apparent distress at this time. Patient and/or ph family updated on plan of care and expected duration. Pain level reassessed. Patient is alert, oriented x 3, equal unlabored respirations, skin warm/dry/pink. 13:55 Reassessment: Pt up for d/c, bilateral feet cleaned w/ bath wipes and lotion applied to ph both feet before applying socks to pt. Vital Signs: 10:58 BP 157 / 114; Pulse 97; Resp 18; Temp 98.1; Pulse Ox 94% on R/A; Weight 95.25 kg; Pain ph 8/10; 13:01 BP 164 / 105; Pulse 112; Resp 18; Pulse Ox 95% on R/A; ph ED Course: 10:44 Patient arrived in ED. rb1 10:45 Deonte Suarez MD is Attending Physician. rn 10:54 Marleen Chase RN is Primary Nurse. ph 10:58 Triage completed. ph 10:59 Arm band placed on Patient placed in an exam room, on a stretcher. ph 11:08 Patient has correct armband on for positive identification. Placed in gown. Bed in low ph position. Call light in reach. Side rails up X 1. Pulse ox on. NIBP on. 11:58 Knee Right 2 View In Process Unspecified. EDMS 11:58 Knee Left 2 View In Process Unspecified. EDMS 12:10 Initial lab(s) drawn, by me, sent to lab. Inserted saline lock: 20 gauge in right dh3 forearm, using aseptic technique. Blood collected. 12:29 Lab(s) recollected, by me, sent to lab. [facility] 13:59 No provider procedures requiring assistance completed. IV discontinued, intact, ph bleeding controlled, No redness/swelling at site. Pressure dressing applied. Administered Medications: 12:59 Drug: [place] 5 mg-325 mg 1 tabs Route: PO; ph 13:50 Follow up: Response: No adverse reaction; Pain is decreased ph Outcome: 13:28 Discharge ordered by . rn 14:01 Patient left the ED. ph 14:01 Discharged to home via wheelchair. ph 14:01 Condition: good 14:01 Discharge instructions given to patient, Instructed on discharge instructions, follow up and referral plans. Demonstrated understanding of instructions, follow-up care. Signatures: Dispatcher [employer] EDMS Deonte Suarez MD MD rn Hall, Patricia, RN RN ph Barber, Rebecca, RN RN Gabrielle Woods [facility]
[2019-06-24 14:44] VITALS: TEMP 98.1
[2019-06-24 14:45] VITALS: BP 164/105; O2SAT 95
== END 2019-06-24 14:01 | disposition home or self-care (01) ==
LOC: ER 10:45
DX: M17.12 Unilateral primary osteoarthritis, left knee (principal); R60.9 Edema, unspecified
CPT/HCPCS: 36415; 80048; 82550; 83880; 85025; 99284

== ENCOUNTER 2019-06-24 19:51 | Emergency (ER) | payer OTHER ==
--- OUTSIDE RECORDS SUMMARY | 2019-06-24 19:55 | XMS REPORT ---
:1955 [facility] [address] Geller [address] [place] [id number] Care Team Providers Name Role Phone UNKNOWN, [...] Blood Cells No organisms seen. Report) NM [id number] 14:28:01Patient: JAD GARCIA Date/Time04/15/2019 13:00 CSTReason for [...] 04/15/2019 2:28 pmCerebrospinal Fluid Culture w/ Gram [id number] 08:52:04 Test Item Value Reference Range Comments Final Report (test code=Final No growth at 24 hours. No Report) growth at 48 hours. No growth at 3 days. No growth at 4 days. No growth at 5 days. Gram Stain Report (test Few White Blood Cells No code=Gram Stain Report) organisms seen. Cell Count Cerebrospinal [id number] 15:51:34 Test Item Value Reference Range Comments CSF Cell Ct Tube # (test code=CSF Cell Ct Tube #) 2 <=4 WBC CSF (test code=WBC CSF) 2.0 mm3 0.0-5.0 RBC CSF (test code=RBC CSF) 10 mm3 0-0 Color CSF (test code=Color CSF) Colorless Colorless Clarity CSF (test code=Clarity CSF) Clear Clear Cytospin Performed CSF (test code=Cytospin No Performed CSF) Glucose Level [id number] 15:20:45 Test Item Value Reference Range Comments Glucose CSF (test code=Glucose CSF) 66 mg/dL 40-70 Protein [id number] 15:20:45 Test Item Value Reference Range Comments Protein CSF (test code=Protein CSF) 44 mg/dL 15-45 IR [id number] 14:54:31Patient: JAD GARCIA Date/Time04/13/2019 14:15 CSTReason for [...] CSigned (Electronic Signature): 04/13/2019 2:54pmProthrombin Time and [id number] 10:33:46 Test Item Value Reference Range Comments Prothrombin Time (test code=Prothrombin Time) 11.6 seconds 9.8-13.4 INR (test code=INR) 1.0 ratio 0.6-1.2 IG [id number] 10:01:22 Test Item Value Reference Range Comments IG (test code=IG) 0.3 % 0.0-5.0 IG Abs (test code=IG Abs) 0 x10 Complete Blood Count with [id number] 10:01:21 Test Item Value Reference Range Comments [...] x10 IPF (test code=IPF) 0 % Automated [id number] 10:01:21 Test Item Value Reference Range Comments Neutro Auto (test code=Neutro Auto) 62.6 % 36.0-70.0 Lymph Auto (test code=Lymph Auto) 19.2 % 12.0-44.0 Grant Auto (test code=Grant Auto) 13.9 % 0.0-11.0 Eos, Auto (test code=Eos, Auto) 3.2 % 0.0-7.0 Basophil Auto (test code=Basophil Auto) 0.8 % 0.0-2.0 Neutro Absolute (test code=Neutro Absolute) 4.7 x10 1.6-7.4 Lymph Absolute (test code=Lymph Absolute) 1.44 x10 .50-4.60 Grant Absolute (test code=Grant Absolute) 1.04 x10 .00-1.20 Eos Absolute (test code=Eos Absolute) 0.24 x10 0.00-0.74 Baso Absolute (test code=Baso Absolute) 0.06 x10 0.00-0.21 CT Brain/Head w/o [id number] 13:30:44Patient: JAD GARCIA Date/Time03/20/2019 13:10 CSTReason for [...] infratentorial ventricular size consistent with mild hydrocephalus.LOCATION: [id number] exam was performed according to our departmental dose optimization program, which includes automated exposure control, adjustment of the mA and/or kV according to the patient size and/or use of iterative reconstructive technique. Final Dictated by: MD Hutchison Melanie CDictated DT/TM: 03/20/2019 1:29 pmSigned by : MD Hucthison Melanie CSigned (Electronic Signature): 03/20/2019 1:30 pmThyroid Stimulating [id number] 05:38:46 Test Item Value Reference Range Comments TSH (test code=TSH) 3.730 mIU/mL 0.270-4.200 Comprehensive Metabolic [id number] 05:20:19 Test Item Value Reference Range Comments [...] (test code=A/G Ratio) 1.5 ratio Comprehensive Metabolic [id number] 05:20:19 Test Item Value Reference Range Comments [...] is not provided, and the patient is -[place], multiply by 1.212. If sex is not [...] by the National Kidney Foundation, http://nkdep.nih.gov Lipid [id number] 05:20:19 Test Item Value Reference Range Comments Cholesterol Total (test 169 mg/dL 0-200 RISK OF HEART DISEASEPublished code=Cholesterol Total) by [place] [employer] Analyte Optimal Borderline Increased RiskCHOL [...] is LDL/HDL Ratio=LDL Calc/HDL Chol Comprehensive Metabolic [id number] 05:20:19 Test Item Value Reference Range Comments [...] is not provided, and the patient is -[place], multiply by 1.212. If sex is not [...] is not provided, and the patient is -[place], multiply by 1.212. If sex is not [...] by the National Kidney Foundation, http://nkdep.nih.gov Automated [id number] 05:14:20 Test Item Value Reference Range Comments Neutro Auto (test code=Neutro Auto) 57.7 % 36.0-70.0 Lymph Auto (test code=Lymph Auto) 23.3 % 12.0-44.0 Grant Auto (test code=Grant Auto) 16.8 % 0.0-11.0 Eos, Auto (test code=Eos, Auto) 1.1 % 0.0-7.0 Basophil Auto (test code=Basophil Auto) 0.4 % 0.0-2.0 Neutro Absolute (test code=Neutro Absolute) 4.4 x10 1.6-7.4 Lymph Absolute (test code=Lymph Absolute) 1.77 x10 .50-4.60 Grant Absolute (test code=Grant Absolute) 1.28 x10 .00-1.20 Eos Absolute (test code=Eos Absolute) 0.08 x10 0.00-0.74 Baso Absolute (test code=Baso Absolute) 0.03 x10 0.00-0.21 IG [id number] 05:14:20 Test Item Value Reference Range Comments IG (test code=IG) 0.7 % 0.0-5.0 IG Abs (test code=IG Abs) 0 x10 Complete Blood Count with [id number] 05:14:19 Test Item Value Reference Range Comments [...] XN) IPF (test code=IPF) 0 % Urine [id number] 08:56:48 C Urine Added by [id number]_INDNo growth at 24 hours. No growth at 48 hours.RPR [id number] 01:13:45 Test Item Value Reference Range Comments RPR Qual (test code=RPR Qual) Non-Reactive Non-Reactive Reactive Control (test code=Reactive Control) Reactive Weak Reactive Control (test code=Weak Reactive Weak Reactive Control) Non-Reactive Control (test code=Non-Reactive Non-Reactive Control) Lot # (test code=Lot #) [id number] Expiration Dt (test code=Expiration Dt) 03-05-20 Comprehensive Metabolic [id number] 03:43:07 Test Item Value Reference Range Comments [...] (test code=A/G Ratio) 1.5 ratio Comprehensive Metabolic [id number] 03:43:07 Test Item Value Reference Range Comments [...] is not provided, and the patient is -[place]and[place], multiply by 1.212. If sex is not [...] the National Kidney Foundation, http://nkdep.nih.gov Comprehensive Metabolic [id number] 03:43:07 Test Item Value Reference Range Comments [...] is not provided, and the patient is -[place]wand[place], multiply by 1.212. If sex is not [...] is not provided, and the patient is -[place], multiply by 1.212. If sex is not [...] Kidney Foundation, http://nkdep.nih.gov Drugs of Abuse Urine [id number] 03:23:01 Test Item Value Reference Range Comments [...] (test Negative Negative code=Cannabinoid Screen Ur) Urinalysis [id number] 03:20:16 Test Item Value Reference Range Comments UA WBC (test code=UA WBC) 0-5 0-5 UA RBC (test code=UA RBC) None Seen 0-5 UA Bacteria (test code=UA Bacteria) Few UA Squam Epithelial (test code=UA Squam 0-5 Epithelial) Urinalysis with Culture, if [id number] 03:12:05 Test Item Value Reference Range Comments [...] created by rule Micro Ind?) GL_SJM_UA_MICRO_IND Automated [id number] 03:12:00 Test Item Value Reference Range Comments Neutro Auto (test code=Neutro Auto) 65.4 % 36.0-70.0 Lymph Auto (test code=Lymph Auto) 18.9 % 12.0-44.0 Grant Auto (test code=Grant Auto) 13.9 % 0.0-11.0 Eos, Auto (test code=Eos, Auto) 0.6 % 0.0-7.0 Basophil Auto (test code=Basophil Auto) 0.6 % 0.0-2.0 Neutro Absolute (test code=Neutro Absolute) 5.7 x10 1.6-7.4 Lymph Absolute (test code=Lymph Absolute) 1.65 x10 .50-4.60 Grant Absolute (test code=Grant Absolute) 1.21 x10 .00-1.20 Eos Absolute (test code=Eos Absolute) 0.05 x10 0.00-0.74 Baso Absolute (test code=Baso Absolute) 0.05 x10 0.00-0.21 IG [id number] 03:12:00 Test Item Value Reference Range Comments IG (test code=IG) 0.6 % 0.0-5.0 IG Abs (test code=IG Abs) 0 x10 Complete Blood Count with [id number] 03:11:59 Test Item Value Reference Range Comments [...] code=IPF) 0 % XR Chest 1 View [id number] 22:35:04Patient: JAD GARCIA Date/Time05/13/201822:10 CSTReason for ExamShortness [...] Maria VSigned (Electronic Signature): 05/13/2018 10:35 pmLipid [id number] 08:43:00 Test Item Value Reference Range Comments Cholesterol (test 177 mg/dL 0-200 code=CHOL) Triglycerides (test 95 mg/dL 9-200 code=TRIG) HDL (test code=HDL) 46 mg/dL 40-60 Chol/HDL (test 3.8 Ratio 0.0-5.0 code=CHOLPHDL) LDL, Calculated (test 112 0-130 (NOTE)RISK OF HEART code=LDLC) DISEASEPublished by [place] Heart AssociationAnalyte Optimal Boderline Increased RiskCHOL <200 200-239 >240TRIG <150 150-199 >200HDL Male: >60 <40HDL Female: >60 <50LDL <100 130-159 >160LDL NEAR OPTIMAL IS 100-129 VLDL (test code=VLDL) 19 mg/dL 5-40 LDL/HDL (test code=LDLPHDL) 2 Vitamin [id number] 01:17:00 Test Item Value Reference Range Comments Vitamin B 12 (test code=VITB12) 490 pg/mL 211-946 CBC with [id number] 13:18:00 Test Item Value Reference Range Comments [...] Lymph Abs (test code=ALYMPH) 2.3 K/cumm 0.5-4.6 Grant Abs (test code=AMONO) 1.2 K/cumm 0.0-1.2 Eos Abs (test code=AEOS) 0.07 K/cumm 0.00-0.74 Baso Abs (test code=ABASO) 0.1 K/cumm 0.00-0.21 RBC Morphology (test Slight Anisocytosis code=RBCMRPH) Platelet Morphology (test Large platelets present; code=PLTMRPH) platelet clumping present Platelet Est (test Adequate Platelets on Smear code=PLTEST) Comprehensive Metabolic [id number] 13:03:00 Test Item Value Reference Range Comments [...] race is not provided, and the patient isAfrican-Rwandan, multiply by 1.212. If sex is not provided, and thepatient is female, multiply by 0.742. Results for patients <18 years ofage have not been validated by the MDRD study and should be interpretedwith caution.eGFR Result Interpretation:eGFR > or=60 is in the Normal RangeeGFR < 60 may mean kidney diseaseeGFR < 15 may mean kidney failureRanges recommended by the National Kidney Foundation,http://nkdep.nih .gov [id number] 12:58:00 Test Item Value Reference Range Comments [...]
--- NOTE | 2019-06-24 20:22 | ER ---
Nurse's Notes [facility] Name: Matt Bertrand Age: 63 yrs Sex: Male : 1955 Arrival Date: 06/24/2019 Time: 19:52 Bed 12 Private MD: Diagnosis: Malingerer [conscious simulation];Encounter for general adult medical examination without abnormal findings Presentation: 06/24 20:10 Presenting complaint: Patient states: he was here earlier today but nothing has changed bb is still having leg pain. Transition of care: patient was not received from another setting of care. Onset of symptoms was June 24, 2019. Risk Assessment: Do you want to hurt yourself or someone else? Patient reports no desire to harm self or others. Initial Sepsis Screen: Does the patient meet any 2 criteria? No. Patient's initial sepsis screen is negative. Does the patient have a suspected source of infection? No. Patient's initial sepsis screen is negative. Care prior to arrival: None. 20:10 Method Of Arrival: Wheelchair bb 20:10 Acuity: ALIDA 4 bb Historical: - Allergies: 20:12 No Known Allergies; bb - Home Meds: 20:12 None [Active]; bb - PMHx: 20:12 eczema; Hydrocephalus; bb - PSHx: 20:12 Shunt; right ankle; bb - Immunization history:: Adult Immunizations unknown. - Coronavirus screen:: The patient has NOT traveled to [place] in the past 14 days. Proceed with normal triage process as indicated. - Social history:: Smoking status: Patient reports the use of cigarette tobacco products, smokes one pack cigarettes per day. Patient uses alcohol, on a daily basis. Patient/guardian denies using street drugs, used street drugs when younger. - Ebola Screening: : No symptoms or risks identified at this time. Assessment: 20:16 Reassessment: pt received MSE from Dr Sanchez and declined treatment, pt offered bb community resources, pt assisted to lobby via wheelchair. Vital Signs: 20:12 BP 157 / 87; Pulse 92; Resp 16 S; Temp 98(O); Pulse Ox 98% on R/A; Weight 95.25 kg (R); bb Height 5 ft. 8 in. (172.72 cm) (R); Pain 8/10; 20:12 Body Mass Index 31.93 (95.25 kg, 172.72 cm) bb ED Course: 19:52 Patient arrived in ED. cl3 20:00 Heath Sanchez MD is Attending Physician. tw4 20:11 Triage completed. bb 20:12 Arm band placed on. bb Administered Medications: No medications were administered Outcome: 20:21 Discharge ordered by . tw4 20:23 Patient left the ED. bb 20:37 Patient left the ED. bb Signatures: Becky Segura RN RN bb Heath Sanchez MD MD tw4 Scot Stahl cl3
--- NOTE | 2019-06-24 20:22 | EDPHYS ---
Physician Documentation [facility] Name: Matt Bertrand Age: 63 yrs Sex: Male : 1955 Arrival Date: 06/24/2019 Time: 19:52 Bed 12 Private MD: ED Physician Heath Sanchez HPI: 06/25 06:18 This 63 yrs old Male presents to ER via Wheelchair with complaints of tw4 Headache "pain all over". 06:18 The patient complains of pain to the . Onset: The symptoms/episode began/occurred tw4 today. Associated signs and symptoms: The patient has no apparent associated signs or symptoms. The patient has experienced a previous episode. The patient has been recently seen at the [facility] Emergency Department, just prior to arrival, today. Pt was recently evaluated in the ED for various complaints. Pt less than 2 hours later with new complaints he states were not addressed by initial visit. [facility] [place] [facility]. 06:21 Pt states he does not have an headache on repeated questioning . tw4 Historical: - Allergies: 06/24 20:12 No Known Allergies; bb - Home Meds: 20:12 None [Active]; bb - PMHx: 20:12 eczema; Hydrocephalus; bb - PSHx: 20:12 Shunt; right ankle; bb - Immunization history:: Adult Immunizations unknown. - Coronavirus screen:: The patient has NOT traveled to [place] in the past 14 days. Proceed with normal triage process as indicated. - Social history:: Smoking status: Patient reports the use of cigarette tobacco products, smokes one pack cigarettes per day. Patient uses alcohol, on a daily basis. Patient/guardian denies using street drugs, used street drugs when younger. - Ebola Screening: : No symptoms or risks identified at this time. ROS: 06/25 06:18 Cardiovascular: Negative for chest pain, palpitations, and edema, Respiratory: Negative tw4 for shortness of breath, cough, wheezing, and pleuritic chest pain, Abdomen/GI: Negative for abdominal pain, nausea, vomiting, diarrhea, and constipation, Back: Negative for injury and pain, MS/Extremity: Negative for injury and deformity, Skin: Negative for injury, rash, and discoloration, Neuro: Negative for headache, weakness, numbness, tingling, and seizure. Constitutional: Positive for body aches, Negative for chills, fatigue, fever, malaise, poor PO intake. Exam: 06:21 Constitutional: This is a well developed, well nourished patient who is awake, alert, tw4 and in no acute distress. Head/Face: Normocephalic, atraumatic. Chest/axilla: Normal chest wall appearance and motion. Nontender with no deformity. No lesions are appreciated. Cardiovascular: Regular rate and rhythm with a normal S1 and S2. No gallops, murmurs, or rubs. Normal PMI, no JVD. No pulse deficits. Respiratory: Lungs have equal breath sounds bilaterally, clear to auscultation and percussion. No rales, rhonchi or wheezes noted. No increased work of breathing, no retractions or nasal flaring. Abdomen/GI: Soft, non-tender, with normal bowel sounds. No distension or tympany. No guarding or rebound. No evidence of tenderness throughout. Back: No spinal tenderness. No costovertebral tenderness. Full range of motion. MS/ Extremity: Pulses equal, no cyanosis. Neurovascular intact. Full, normal range of motion. Neuro: Awake and alert, GCS 15, oriented to person, place, time, and situation. Cranial nerves II-XII grossly intact. Motor strength 5/5 in all extremities. Sensory grossly intact. Cerebellar exam normal. Normal gait. Vital Signs: 06/24 20:12 BP 157 / 87; Pulse 92; Resp 16 S; Temp 98(O); Pulse Ox 98% on R/A; Weight 95.25 kg (R); bb Height 5 ft. 8 in. (172.72 cm) (R); Pain 8/10; 20:12 Body Mass Index 31.93 (95.25 kg, 172.72 cm) bb MDM: 20:19 Patient medically screened. tw4 20:19 Data reviewed: vital signs, nurses notes. Data interpreted: Pulse oximetry: tw4 Interpretation: normal. Counseling: I had a detailed discussion with the patient and/or guardian regarding: the historical points, exam findings, and any diagnostic results supporting the discharge/admit diagnosis. Medical screen evaluation completed. EMTALA emergency medical condition absent. Administered Medications: No medications were administered Disposition: 20:28 [facility] [place]. [place] Disposition: 06/24/19 20:21 Discharged to Home. Impression: Malingerer [conscious simulation], Encounter for general adult medical examination without abnormal findings. - Condition is Stable. - Medication Reconciliation Form, Thank You Letter, Antibiotic Education, Prescription Opioid Use form. - Follow up: Private Physician; When: Upon discharge from the Emergency Department; Reason: If symptoms return, Recheck today's complaints, Continuance of care, Re-evaluation by your physician. - Problem is new. - Symptoms are resolved. Signatures: Becky Segura RN RN Heath Barragan MD MD tw4 Corrections: (The following items were deleted from the chart) :23 20:21 06/24/2019 20:21 Discharged to Home. Impression: Malingerer [conscious bb simulation]. Condition is Stable. Forms are Medication Reconciliation Form, Thank You Letter, Antibiotic Education, Prescription Opioid Use. Follow up: Private Physician; When: Upon discharge from the Emergency Department; Reason: If symptoms return, Recheck today's complaints, Continuance of care, Re-evaluation by your physician. Problem is new. Symptoms are resolved. tw4 20:28 20:23 06/24/2019 20:21 Discharged to Home. Impression: Malingerer [conscious tw4 simulation]. Condition is Stable. Forms are Medication Reconciliation Form, Thank You Letter, Antibiotic Education, Prescription Opioid Use. Follow up: Private Physician; When: Upon discharge from the Emergency Department; Reason: If symptoms return, Recheck today's complaints, Continuance of care, Re-evaluation by your physician. Problem is new. Symptoms are resolved. : 20:29 06/24/2019 20:21 Discharged to Home. Impression: Malingerer [conscious bb simulation]; Encounter for general adult medical examination without abnormal findings. Condition is Stable. Forms are Medication Reconciliation Form, Thank You Letter, Antibiotic Education, Prescription Opioid Use. Follow up: Private Physician; When: Upon discharge from the Emergency Department; Reason: If symptoms return, Recheck today's complaints, Continuance of care, Re-evaluation by your physician. Problem is new. Symptoms are resolved. tw4 20:37 20:31 06/24/2019 20:21 Discharged to Home. Impression: Malingerer [conscious bb simulation]. Condition is Stable. Forms are Medication Reconciliation Form, Thank You Letter, Antibiotic Education, Prescription Opioid Use. Follow up: Private Physician; When: Upon discharge from the Emergency Department; Reason: If symptoms return, Recheck today's complaints, Continuance of care, Re-evaluation by your physician. Problem is new. Symptoms are resolved. bb
[2019-06-24 21:21] VITALS: BP 157/87; TEMP 98; O2SAT 98
== END 2019-06-24 20:37 | disposition home or self-care (01) ==
LOC: ER 19:51
DX: R51 Headache (principal); Z76.5 Malingerer [conscious simulation]; Z00.00 Encounter for general adult medical examination without abnormal findings